=== PATIENT | male | born 1945 | race Caucasian/White ===

== ENCOUNTER → 2016-09-11 | Outpatient (CLI) | payer OTHER, MEDICARE ==
--- NOTE | 2016-09-11 10:21 | CR ---
EXAMINATION: Left and right knees HISTORY: Artificial joint COMPARISON: 31/10/2015 TECHNIQUE: 3 views bilaterally FINDINGS: Bilateral total knee hardware are demonstrated in good position and alignment. There is no fracture or acute osseous abnormality. Bone mineralization appears normal. Postoperative soft tissu e changes are present. Small joint effusions are not excluded bilaterally. No evidence of loosening. IMPRESSION: Stable bilateral total knee hardware.
== END ==
LOC: MW.CHORTHO 06:58
PROVIDERS: ATTEND Orthopaedic Surgery
DX: Z96.652 Presence of left artificial knee joint (principal); Z96.651 Presence of right artificial knee joint
CPT/HCPCS: 73562-26-LT; 73562-26-RT; 73562-LT; 73562-RT

== ENCOUNTER 2017-06-14 09:46 | Day surgery (SDC) | payer OTHER, MEDICARE ==
[~2017-06-14 09:46] MED LIST: Lactated Ringers 1,000 ML IV SCH; Lidocaine 2% 5 ML SDV ONE; Propofol 200 MG/20 ML SDV ONE
--- NOTE | 2017-06-14 11:07 | PCM.PREANE ---
Preanesthetic Assessment - Anesthesia/Transfusion/Family Hx Anesthesia History: Prior Anesthesia Without Reaction Other Type of Anesthesia Reaction Comment: Denies any known problem in the past Transfusion History: No Prior Transfusion(s) - Review of Systems General: No Symptoms Pulmonary: No Symptoms Cardiovascular: No Symptoms Gastrointestinal: No Symptoms Neurological: No Symptoms Other: Reports: None - Physical Assessment NPO Status Date: 06/13/17 NPO Status Time: 21:00 O2 Sat by Pulse Oximetry: 95 Respiratory Rate: 14 Vital Signs: Last Vital Signs Temp 98.1 F 06/14/17 09:50 Pulse 66 06/14/17 09:50 Resp 14 06/14/17 09:50 BP 123/76 06/14/17 09:50 Pulse Ox 95 06/14/17 09:50 Height: 6 ft 5 in Weight: 118.388 kg ASA Class: 3 Mental Status: Alert & Oriented x3 Airway Class: Mallampati = 2 Dentition: Reports: Missing Tooth/Teeth Thyro-Mental Finger Breadths: 3 Mouth Opening Finger Breadths: 3 ROM/Head Extension: Limited/Partial Lungs: Clear to Auscultation, Normal Respiratory Effort Cardiovascular: Regular Rate, Regular Rhythm - Allergies Allergies/Adverse Reactions: Allergies Allergy/AdvReac Type Severity Reaction Status Date / Time No Known Allergies Allergy Verified 05/22/16 10:28 - Anesthesia Plan Free Text/Narrative:: Pt states in 2011 he came in with chest pain, and ended up having a stent placed. Denies any further chest pain of SOA since that time. Pt is also very LOWER [place]. - Acknowledgements Anesthesia Type Planned: MAC Pt an Appropriate Candidate for the Planned Anesthesia: Yes Alternatives and Risks of Anesthesia Discussed w Pt/Guardian: Yes Pt/Guardian Understands and Agrees with Anesthesia Plan: Yes PreAnesthesia Questionnaire HEENT History: Reports: Hard of Hearing Other HEENT History: hearing aids, wears glasses Cardiovascular History: Reports: CAD, High Cholesterol, Hypertension Other Cardiovascular History: Heart Stent placed 10/2011, [place], Varicose Vein Stripping Left Respiratory History: Reports: Sleep Apnea Other Respiratory History: not always uses CPAP Gastrointestinal History: Reports: GERD, Other (See Below) Other Gastrointestinal History: Allen's Esophagus Genitourinary History: Reports: None Musculoskeletal History: Reports: Fracture, Osteoarthritis Other Musculoskeletal History: Arthritis in knees and wrist Neurological History: Reports: None Psychiatric History: Reports: Anxiety, Depression Endocrine/Metabolic History: Reports: None Hematologic History: Reports: Iron Deficiency Immunologic History: Reports: None Oncologic (Cancer) History: Reports: None Dermatologic History: Reports: None - Infectious Disease History Infectious Disease History: Reports: Chicken Pox, Measles, Mumps Other Infectious Disease History: childhood - Past Surgical History Head Surgeries/Procedures: Reports: None HEENT Surgical History: Reports: None Cardiovascular Surgical History: Reports: Coronary Artery Stent, Varicose Other Cardiovascular Surgeries/Procedures: left varicose vein stripping , angioplasty with 1 stent placed; Respiratory Surgical History: Reports: None GI Surgical History: Reports: Colonoscopy, EGD Other GI Surgeries/Procedures: has yearly EGD to check Esophagus Male Surgical History: Reports: None Endocrine Surgical History: Reports: None Neurological Surgical History: Reports: None Musculoskeletal Surgical History: Reports: Knee Replacement Other Musculoskeletal Surgeries/Procedures:: hx brigitte knee replacements, retained hardware removed from left knee Oncologic Surgical History: Reports: None Dermatological Surgical History: Reports: None - SUBSTANCE USE Smoking Status *Q: Former Smoker Tobacco Use Within Last Twelve Months:  Other Tobacco Use Within Last Twelve Months: Quit smoking age 25 or 26 Second Hand Smoke Exposure: No Days Per Week of Alcohol Use: 0 Number of Drinks Per Day: 0 Total Drinks Per Week: 0 Recreational Drug Use History: No - HOME MEDS Home Medications: Home Meds Clopidogrel Bisulfate [Clopidogrel] 75 mg PO DAILY 05/04/14 [History] Fish Oil/DHA/EPA [Fish Oil 1,200 MG] 2 cap PO DAILY 05/04/14 [History] Hydrochlorothiazide 25 mg PO DAILY 05/04/14 [History] Lisinopril 10 mg PO DAILY 05/04/14 [History] Metoclopramide [Reglan] 10 mg PO BEDTIME 05/04/14 [History] Multivitamin [Multi-Vitamin Daily] 1 tab PO DAILY 05/04/14 [History] Pantoprazole Sodium 40 mg PO DAILY 05/04/14 [History] Venlafaxine HCl [Venlafaxine ER] 150 mg PO DAILY 05/04/14 [History] Rosuvastatin [Crestor] 20 mg PO BEDTIME 05/24/14 [History] Metoprolol Tartrate [Lopressor] 12.5 mg PO BID 07/04/15 [History] - CURRENT (IN HOUSE) MEDS Current Meds: Current Medications Lactated Ringer's (Ringers, Lactated) 1,000 mls @ 125 mls/hr IV ASDIRECTED GENARO Last Admin: 06/14/17 10:24 Dose: 125 mls/hr Discontinued Medications Lidocaine (Xylocaine-Mpf 2%) Confirm Administered Dose 5 ml .ROUTE .STK-MED ONE Stop: 06/14/17 07:33 Propofol (Diprivan 20 Ml) Confirm Administered Dose 400 mg .ROUTE .STK-MED ONE Stop: 06/14/17 07:33
[2017-06-14] MEDS ORDERED: cefOXitin 1 GM Vial ONE (11:40)
[2017-06-14] MEDS ORDERED: Sodium Chloride 0.9% 20 ML ONE (11:40)
--- NOTE | 2017-06-14 12:11 | PCM.OPNOTE ---
- General Post-Op/Procedure Note Date of Surgery/Procedure: 06/14/17 Operative Procedure(s): Esophagogastroduodenoscopy with biopsy Pre Op Diagnosis: History of Allen's esophagus Post-Op Diagnosis: Gastritis. Gastric polyp. Mild esophagitis. Anesthesia Technique: MAC (ASA III) Primary Surgeon: Maik Murrieta Supervising Fire Marshal: Noman Rosario Condition: Good Free Text/Narrative:: CPT CODE 92447
[2017-06-14] MEDS ORDERED: Lactated Ringers 1,000 ML IV SCH (12:15)
--- NOTE | 2017-06-14 12:32 | PCM.POSTAN ---
POST ANESTHESIA ASSESSMENT - MENTAL STATUS Mental Status: Alert, Oriented - RESPIRATORY Respiratory Status: Respiratory Rate WNL, Airway Patent, O2 Saturation Stable - CARDIOVASCULAR CV Status: Pulse Rate WNL, Blood Pressure Stable - GASTROINTESTINAL GI Status: No Symptoms - POST OP HYDRATION Hydration Status: Adequate & Stable
[2017-06-14 12:58] VITALS: BP 120/67
--- NOTE | 2017-06-14 19:37 | OR ---
SURGEON: Maik Murrieta M.D. DATE OF PROCEDURE: 06/14/2017 OPERATIONS PERFORMED: Esophagogastroduodenoscopy with biopsy of gastric antrum and distal esophagus and gastric polypectomy. ANESTHESIA: MAC. ASA CLASSIFICATION: 3. PREOPERATIVE DIAGNOSIS: Personal history of Allen's esophagus. POSTOPERATIVE DIAGNOSES: 1. Gastritis. 2. Mild esophagitis, no obvious acute Allen's. 3. Gastric polyp. DESCRIPTION OF PROCEDURE: The patient was taken to the endoscopy room and positioned on the endoscopy table in the supine position. Time-out was called for appropriate identification of patient and procedure. Monitored anesthesia care was provided. The bite block was placed between the patient's teeth. The gastroscope was inserted through the bite block and advanced without difficulty through the esophagus and stomach into the duodenum where examination was carried out in a retrograde fashion. The duodenum shows no acute inflammatory changes. The gastroscope was withdrawn into the stomach which does show a mild- to-moderate gastritis. Antral biopsies were obtained to look for the presence of Helicobacter pylori. The gastroscope was then retroflexed to visualize the proximal stomach. The patient does have some gastric polyps. Biopsy of one of the gastric polyps was also obtained. The scope was then further withdrawn to the esophagus, which does show some mild inflammatory changes. Biopsies of the distal esophagus were obtained to look for the presence of Allen's esophagus. The mid and proximal esophagus show healthy-appearing mucosa with no erosions or ulcerations. The vocal cords were not visualized as the scope was withdrawn. The gastroscope was then removed with the patient having tolerated the procedure well. He was taken to recovery room in stable condition. RAGHAV / BERKLEY /[id number]
== END 2017-06-14 12:40 | disposition home or self-care (01) ==
LOC: MW.SDS 09:46
PROVIDERS: ATTEND Surgery
DX: K21.0 Gastro-esophageal reflux disease with esophagitis (principal); K29.50 Unspecified chronic gastritis without bleeding; K31.7 Polyp of stomach and duodenum; I25.10 Atherosclerotic heart disease of native coronary artery without angina pectoris; F32.9 Major depressive disorder, single episode, unspecified; M10.9 Gout, unspecified; I10 Essential (primary) hypertension; E78.00 Pure hypercholesterolemia, unspecified; D50.9 Iron deficiency anemia, unspecified; B35.4 Tinea corporis; G47.30 Sleep apnea, unspecified; F41.9 Anxiety disorder, unspecified; Z96.653 Presence of artificial knee joint, bilateral; Z79.02 Long term (current) use of antithrombotics/antiplatelets; Z79.899 Other long term (current) drug therapy; Z87.891 Personal history of nicotine dependence; Z95.5 Presence of coronary angioplasty implant and graft; Z86.718 Personal history of other venous thrombosis and embolism
CPT/HCPCS: 43239; 88305; 88312; 93005; J0694; J7120; 00731; J2704

== ENCOUNTER 2018-07-30 14:04 | Emergency (ER) | payer MEDICARE, OTHER ==
[2018-07-30] MEDS ORDERED: Sodium Chloride 0.9% 10 ML Syringe FLUSH PRN (14:10)
[2018-07-30] MEDS ORDERED: Sodium Chloride 0.9% 2.5 ML Syringe FLUSH PRN (14:10)
--- NOTE | 2018-07-30 14:11 | EDM.PDOC ---
ED HPI GENERAL MEDICAL PROBLEM - General Chief Complaint: Cardiovascular Problem Stated Complaint: HEART ISSUES Time Seen by Provider: 07/30/18 14:10 Source of Information: Reports: Patient History Limitations: Reports: No Limitations - History of Present Illness INITIAL COMMENTS - FREE TEXT/NARRATIVE: HISTORY AND PHYSICAL: History of present illness: Patient is-year-old male here with complaint of concern about coronary artery blockage. He states he has been feeling similar to when he was feeling before he had a stent placed in his LAD in 2011 but states he never had an MN. He states for the past week he has been having reflex and a tight feeling across the top of his abdomen. He states he occasionally gets pain the radiates to either side of the chest. He reports it is worse with activity and he does have associated shortness or breath. Denies nausea, vomiting, diaphoresis, cough, headache. He does have history of GERD and takes protonix daily. He does not currently have any pain and has not had pain today. [facility] to have [facility] done. Review of systems: As per history of present illness and below otherwise all systems reviewed and negative. Past medical history: As per history of present illness and as reviewed below otherwise noncontributory. Surgical history: As per history of present illness and as reviewed below otherwise noncontributory. Social history: No reported history of drug or alcohol abuse. Family history: As per history of present illness and as reviewed below otherwise noncontributory. Physical exam: General: Patient sitting comfortably in no acute distress and nontoxic appearing HEENT: Atraumatic, normocephalic, pupils reactive, negative for conjunctival pallor or scleral icterus, mucous membranes moist, throat clear, neck supple, nontender, trachea midline. No meningeal signs. Lungs: Clear to auscultation, breath sounds equal bilaterally, chest nontender. Heart: S1S2, regular, negative for clicks, rubs, or overt murmur. Abdomen: Soft, nondistended, nontender. Negative for masses or hepatosplenomegaly. Negative for costovertebral tenderness. No rigidity, rebound , guarding. Pelvis: Stable nontender. Genitourinary: Deferred. Rectal: Deferred. Extremities: Atraumatic, negative for cords or calf pain. Neurovascular unremarkable. Neuro: Awake, alert, oriented. Cranial nerves II through XII unremarkable. Cerebellum unremarkable. Motor and sensory unremarkable throughout. Exam nonfocal. Notes: Patient was offered admission which he declined at this time and understands the risks of this. Diagnostics: EKG, CXR, CBC, CMP, troponin Therapeutics: None Prescriptions: None Impression: Chest pain, GERD Plan: 1. Follow up with your primary care provider 2. Return to ED as needed as discussed Definitive disposition and diagnosis as appropriate pending reevaluation and review of above. - Related Data Allergies Allergy/AdvReac Type Severity Reaction Status Date / Time No Known Allergies Allergy Verified 07/30/18 14:15 Home Meds: Home Meds Clopidogrel Bisulfate [Clopidogrel] 75 mg PO DAILY 05/04/14 [History] Fish Oil/DHA/EPA [Fish Oil 1,200 MG] 2 cap PO DAILY 05/04/14 [History] Hydrochlorothiazide 25 mg PO DAILY 05/04/14 [History] Lisinopril 10 mg PO DAILY 05/04/14 [History] Metoclopramide [Reglan] 10 mg PO BEDTIME 05/04/14 [History] Multivitamin [Multi-Vitamin Daily] 1 tab PO DAILY 05/04/14 [History] Pantoprazole Sodium 40 mg PO DAILY 05/04/14 [History] Venlafaxine HCl [Venlafaxine ER] 150 mg PO DAILY 05/04/14 [History] Rosuvastatin [Crestor] 20 mg PO BEDTIME 05/24/14 [History] Metoprolol Tartrate [Lopressor] 12.5 mg PO BID 07/04/15 [History] Past Medical History HEENT History: Reports: Hard of Hearing Other HEENT History: hearing aids, wears glasses Cardiovascular History: Reports: CAD, High Cholesterol, Hypertension Other Cardiovascular History: Heart Stent placed 10/2011, [place], Varicose Vein Stripping Left Respiratory History: Reports: Sleep Apnea Other Respiratory History: not always uses CPAP Gastrointestinal History: Reports: GERD, Other (See Below) Other Gastrointestinal History: Allen's Esophagus Genitourinary History: Reports: None Musculoskeletal History: Reports: Fracture, Osteoarthritis Other Musculoskeletal History: Arthritis in knees and wrist Neurological History: Reports: None Psychiatric History: Reports: Anxiety, Depression Endocrine/Metabolic History: Reports: None Hematologic History: Reports: Iron Deficiency Immunologic History: Reports: None Oncologic (Cancer) History: Reports: None Dermatologic History: Reports: None - Infectious Disease History Infectious Disease History: Reports: Chicken Pox, Measles, Mumps Other Infectious Disease History: childhood - Past Surgical History Head Surgeries/Procedures: Reports: None HEENT Surgical History: Reports: None Cardiovascular Surgical History: Reports: Coronary Artery Stent, Varicose Other Cardiovascular Surgeries/Procedures: left varicose vein stripping , angioplasty with 1 stent placed; Respiratory Surgical History: Reports: None GI Surgical History: Reports: Colonoscopy, EGD Other GI Surgeries/Procedures: has yearly EGD to check Esophagus Male Surgical History: Reports: None Endocrine Surgical History: Reports: None Neurological Surgical History: Reports: None Musculoskeletal Surgical History: Reports: Knee Replacement Other Musculoskeletal Surgeries/Procedures:: hx brigitte knee replacements, retained hardware removed from left knee Oncologic Surgical History: Reports: None Dermatological Surgical History: Reports: None Social & Family History - Family History Cardiac: Reports: Other (See Below) Other Cardiac Family History: unknown condition Respiratory: Reports: TB Neurological: Reports: CVA Endocrine/Metabolic: Reports: Obesity/MBI 30+ Oncologic: Reports: Brain ED ROS GENERAL - Review of Systems Review Of Systems: ROS reveals no pertinent complaints other than HPI. ED EXAM, GENERAL - Physical Exam Exam: See Below (see dictation) Course - Vital Signs Last Recorded V/S: Last Vital Signs Temp 97.8 F 07/30/18 14:16 Pulse 77 07/30/18 14:16 Resp 17 07/30/18 14:16 BP 112/75 07/30/18 14:16 Pulse Ox 97 07/30/18 14:16 - Orders/Labs/Meds Orders: Active Orders 24 hr Category Date Time Status EKG Documentation Completion [RC] STAT Care 07/30/18 14:10 Active Sodium Chloride 0.9% [Saline Flush] Med 07/30/18 14:10 Active 10 ml FLUSH ASDIRECTED PRN Sodium Chloride 0.9% [Saline Flush] Med 07/30/18 14:10 Active 2.5 ml FLUSH ASDIRECTED PRN Saline Lock Insert [OM.PC] Stat Oth 07/30/18 14:10 Ordered Medication Orders Sodium Chloride (Saline Flush) 10 ml FLUSH ASDIRECTED PRN PRN Reason: Keep Vein Open Sodium Chloride (Saline Flush) 2.5 ml FLUSH ASDIRECTED PRN PRN Reason: Keep Vein Open Labs: Laboratory Tests 07/30/18 07/30/18 Range/Units 14:20 14:20 WBC 7.36 (4.0-11.0) K/uL RBC 4.73 (4.50-5.90) M/uL Hgb 15.1 (13.0-17.0) g/dL Hct 44.6 (38.0-50.0) % MCV 94.3 (80.0-98.0) fL MCH 31.9 (27.0-32.0) pg MCHC 33.9 (31.0-37.0) g/dL RDW Std Deviation 47.6 (28.0-62.0) fl RDW Coeff of [place] 14 (11.0-15.0) % Plt Count 229 (150-400) K/uL MPV 10.40 (7.40-12.00) fL Neut % (Auto) 60.4 (48.0-80.0) % Lymph % (Auto) 20.2 (16.0-40.0) % [place] % (Auto) 11.4 (0.0-15.0) % Eos % (Auto) 6.5 (0.0-7.0) % Baso % (Auto) 1.5 (0.0-1.5) % Neut # (Auto) 4.4 (1.4-5.7) K/uL Lymph # (Auto) 1.5 (0.6-2.4) K/uL [place] # (Auto) 0.8 (0.0-0.8) K/uL Eos # (Auto) 0.5 (0.0-0.7) K/uL Baso # (Auto) 0.1 (0.0-0.1) K/uL Nucleated RBC % 0.0 /100WBC Nucleated RBCs # 0 K/uL Sodium 135 L (136-148) mmol/L Potassium 3.9 (3.5-5.1) mmol/L Chloride 101 (98-107) mmol/L Carbon Dioxide 26.1 (21.0-32.0) mmol/L BUN 28 H (7.0-18.0) mg/dL Creatinine 1.3 (0.8-1.3) mg/dL Est Cr Clr Drug Dosing 63.06 mL/min Estimated GFR (MDRD) 54.3 ml/min Glucose 100 (74-106) mg/dL Calcium 9.2 (8.5-10.1) mg/dL Total Bilirubin 0.4 (0.2-1.0) mg/dL AST 16 (15-37) IU/L ALT 30 (14-63) IU/L Alkaline Phosphatase 104 (46-116) U/L Troponin I < 0.050 (0.000-0.056) ng/mL Total Protein 7.5 (6.4-8.2) g/dL Albumin 3.7 (3.4-5.0) g/dL Globulin 3.8 (2.6-4.0) g/dL Albumin/Globulin Ratio 1.0 (0.9-1.6) Meds: Medications Generic Name Dose Route Start Last Admin Trade Name Freq PRN Reason Stop Dose Admin Sodium Chloride 10 ml 07/30/18 14:10 Saline Flush FLUSH ASDIRECTED PRN Keep Vein Open Sodium Chloride 2.5 ml 07/30/18 14:10 Saline Flush FLUSH ASDIRECTED PRN Keep Vein Open Departure - Departure Time of Disposition: 15:29 Disposition: Home, Self-Care 01 Condition: Good Clinical Impression: Chest pain, GERD (gastroesophageal reflux disease) Forms: ED Department Discharge Additional Instructions: The following information is given to patients seen in the emergency department who are being discharged to home. This information is to outline your options for follow-up care. We provide all patients seen in our emergency department with a follow-up referral. The need for follow-up, as well as the timing and circumstances, are variable depending upon the specifics of your emergency department visit. If you don't have a primary care physician on staff, we will provide you with a referral. We always advise you to contact your personal physician following an emergency department visit to inform them of the circumstance of the visit and for follow-up with them and/or the need for any referrals to a consulting specialist. The emergency department will also refer you to a specialist when appropriate. This referral assures that you have the opportunity for follow-up care with a specialist. All of these measure are taken in an effort to provide you with optimal care, which includes your follow-up. Under all circumstances we always encourage you to contact your private physician who remains a resource for coordinating your care. When calling for follow-up care, please make the office aware that this follow-up is from your recent emergency room visit. If for any reason you are refused follow-up, please contact the [facility] Department at and asked to speak to the emergency department charge nurse. [facility] [address] [place] [address] [address] 1. Follow up with your primary care provider 2. Return to ED as needed as discussed - My Orders Last 24 Hours: My Active Orders 07/30/18 14:10 EKG Documentation Completion [RC] STAT Sodium Chloride 0.9% [Saline Flush] 10 ml FLUSH ASDIRECTED PRN Sodium Chloride 0.9% [Saline Flush] 2.5 ml FLUSH ASDIRECTED PRN Saline Lock Insert [OM.PC] Stat - Assessment/Plan Last 24 Hours: My Active Orders 07/30/18 14:10 EKG Documentation Completion [RC] STAT Sodium Chloride 0.9% [Saline Flush] 10 ml FLUSH ASDIRECTED PRN Sodium Chloride 0.9% [Saline Flush] 2.5 ml FLUSH ASDIRECTED PRN Saline Lock Insert [OM.PC] Stat
[2018-07-30 14:54] LABS: CHLORIDE,CL 101 mmol/L (98-107); SODIUM,NA 135 mmol/L (136-148)
--- NOTE | 2018-07-30 15:10 | CR ---
EXAMINATION: Portable chest radiograph. HISTORY: Chest pain. FINDINGS: The trachea is midline. The cardiomediastinal silhouette is within normal limits. No pulmonary infiltrates, effusions or pneumothorax. Mild left basilar atelectasis. Small to moderate hiatal hernia. Osseous structures appear unremarkable. IMPRESSION: No acute cardiopulmonary process.
[2018-07-30 15:46] VITALS: BP 100/70
== END 2018-07-30 15:40 | disposition home or self-care (01) ==
LOC: MW.ED 14:04
DX: K21.9 Gastro-esophageal reflux disease without esophagitis (principal); R07.9 Chest pain, unspecified; E78.00 Pure hypercholesterolemia, unspecified; I10 Essential (primary) hypertension; Z79.899 Other long term (current) drug therapy; Z79.01 Long term (current) use of anticoagulants
CPT/HCPCS: 36415; 71045; 71045-26; 80053; 84484; 85025; 93005; 99284; 99285-25

== ENCOUNTER 2019-03-07 10:46 | Emergency (ER) | payer OTHER, MEDICARE ==
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
--- NOTE | 2019-03-07 11:50 | CR ---
HISTORY: Pain. TECHNIQUE: One view of the pelvis. COMPARISON: No prior. FINDINGS: There is no acute fracture. No hip joint space narrowing. Degenerative disc disease within the lower lumbar spine and at the lumbosacral junction. Pelvic calcifications may represent phleboliths. IMPRESSION: 1. No fracture. 2. No hip joint space narrowing. 3. Degenerative disc disease. Dictated by Saman Izaguirre MD @ 03/07/2019 11:47:59 AM Dictated by: Saman Izaguirre MD @ 03/07/2019 11:48:04 (Electronically Signed)
--- NOTE | 2019-03-07 11:52 | CR ---
INDICATION: Pain, shortness of breath. COMPARISON: Two view chest dated 11/20/2018 TECHNIQUE: Portable AP erect chest performed at 11:01 a.m. FINDINGS: There is stable linear scarring within the left lung base. Lungs are otherwise clear. The heart, mediastinum and pulmonary vessels are of normal size. There is stable apical pleural scarring. There is no evidence of pleural fluid. IMPRESSION: No acute cardiopulmonary disease process identified. Dictated by Thomas Souza MD @ Mar 07 2019 11:49AM Signed by Dr. Thomas Souza @ Mar 07 2019 11:51AM
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
[2019-03-07 11:55] LABS: POTASSIUM,K 4.1 mmol/L (3.5-5.1)
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
[2019-03-07 12:58] VITALS: BP 98/66; PULSE 66
== END 2019-03-07 12:22 | disposition home or self-care (01) ==
LOC: MW.ED 10:46
DX: S19.9XXA Unspecified injury of neck, initial encounter (principal); H91.93 Unspecified hearing loss, bilateral; I25.10 Atherosclerotic heart disease of native coronary artery without angina pectoris; E78.00 Pure hypercholesterolemia, unspecified; I10 Essential (primary) hypertension; K21.9 Gastro-esophageal reflux disease without esophagitis; F41.9 Anxiety disorder, unspecified; F32.9 Major depressive disorder, single episode, unspecified; Z88.5 Allergy status to narcotic agent; Z95.5 Presence of coronary angioplasty implant and graft; Z79.899 Other long term (current) drug therapy; Z79.02 Long term (current) use of antithrombotics/antiplatelets; V43.53XA Car driver injured in collision with pick-up truck in traffic accident, initial encounter; Y92.410 Unspecified street and highway as the place of occurrence of the external cause
CPT/HCPCS: 36415; 70450; 70450-26; 71045; 71045-26; 72125; 72125-26; 72170; 72170-26; 80053; 81003; 83690; 85025; 85610; 99284-25

== ENCOUNTER 2020-01-08 06:45 | Day surgery (SDC) | payer OTHER, MEDICARE ==
[~2020-01-08 06:45] MED LIST changes: -Lidocaine 2% 5 ML SDV ONE; -Propofol 200 MG/20 ML SDV ONE; +cefOXitin 2 GM in Premix Bag 1 BAG IV ONE
[2020-01-08] MEDS ORDERED: Propofol 200 MG/20 ML SDV ONE (07:21)
--- NOTE | 2020-01-08 07:22 | PCM.PREANE ---
Preanesthetic Assessment - Anesthesia/Transfusion/Family Hx Anesthesia History: Prior Anesthesia Without Reaction Other Type of Anesthesia Reaction Comment: Denies any known problem in the past Family History of Anesthesia Reaction: No Transfusion History: No Prior Transfusion(s) - Review of Systems General: No Symptoms Pulmonary: No Symptoms Cardiovascular: No Symptoms Gastrointestinal: No Symptoms Neurological: No Symptoms Other: Reports: None - Physical Assessment NPO Status Date: 01/07/20 Vital Signs: Last Vital Signs Temp 97.2 F 01/08/20 06:50 Pulse 66 01/08/20 06:50 Resp 16 01/08/20 06:50 BP 132/81 01/08/20 06:50 Pulse Ox 96 01/08/20 06:50 Height: 6 ft 3 in Weight: 113.398 kg ASA Class: 3 Mental Status: Alert & Oriented x3 Airway Class: Mallampati = 2 Dentition: Reports: Normal Dentition ROM/Head Extension: Full Lungs: Clear to Auscultation, Normal Respiratory Effort Cardiovascular: Regular Rate, Regular Rhythm - Allergies Allergies/Adverse Reactions: Allergies Allergy/AdvReac Type Severity Reaction Status Date / Time hydrocodone Allergy Irritabilit Verified 01/04/20 13:22 y - Blood Blood Available: No - Anesthesia Plan Pre-Op Medication Ordered: None - Acknowledgements Anesthesia Type Planned: General Anesthesia (tiva) Pt an Appropriate Candidate for the Planned Anesthesia: Yes Alternatives and Risks of Anesthesia Discussed w Pt/Guardian: Yes Pt/Guardian Understands and Agrees with Anesthesia Plan: Yes Additional Comments: PMH: Barrettestuardo, cad s/p coronary stent in 2011, off plavix x 6 days, gerd, htn, has osteoarthritis of hands PLAN: tiva PreAnesthesia Questionnaire HEENT History: Reports: Hard of Hearing Other HEENT History: hearing aids, wears glasses Cardiovascular History: Reports: CAD, High Cholesterol, Hypertension Other Cardiovascular History: Heart Stent placed 10/2011, [place], Varicose Vein Stripping Left Respiratory History: Reports: Sleep Apnea Other Respiratory History: dose not use CPAP Gastrointestinal History: Reports: Gastritis, GERD, Other (See Below) Other Gastrointestinal History: Allen's Esophagus Genitourinary History: Reports: None Musculoskeletal History: Reports: Fracture, Osteoarthritis Other Musculoskeletal History: hx fx leg, Arthritis in knees and wrist Neurological History: Reports: None Psychiatric History: Reports: Anxiety, Depression Endocrine/Metabolic History: Reports: Obesity/BMI 30+ Hematologic History: Reports: Anticoagulation Therapy, Iron Deficiency Immunologic History: Reports: None Oncologic (Cancer) History: Reports: None Dermatologic History: Reports: None - Infectious Disease History Infectious Disease History: Reports: Chicken Pox, Measles, Mumps Other Infectious Disease History: childhood - Past Surgical History Head Surgeries/Procedures: Reports: None HEENT Surgical History: Reports: None Cardiovascular Surgical History: Reports: Coronary Artery Stent, Varicose Other Cardiovascular Surgeries/Procedures: left varicose vein stripping , angioplasty with 1 stent placed; Respiratory Surgical History: Reports: None GI Surgical History: Reports: Colonoscopy, EGD Male Surgical History: Reports: None Endocrine Surgical History: Reports: None Neurological Surgical History: Reports: None Musculoskeletal Surgical History: Reports: Knee Replacement Other Musculoskeletal Surgeries/Procedures:: hx brigitte knee replacements, retained hardware removed from left knee Oncologic Surgical History: Reports: None Dermatological Surgical History: Reports: None - SUBSTANCE USE Smoking Status *Q: Former Smoker Tobacco Use Within Last Twelve Months: No - HOME MEDS Home Medications: Home Meds Clopidogrel Bisulfate [Clopidogrel] 75 mg PO DAILY 05/04/14 [History] Fish Oil/DHA/EPA [Fish Oil 1,200 MG] 2 cap PO DAILY 05/04/14 [History] Hydrochlorothiazide 25 mg PO DAILY 05/04/14 [History] Lisinopril 10 mg PO DAILY 05/04/14 [History] Multivitamin [Multi-Vitamin Daily] 1 tab PO DAILY 05/04/14 [History] Venlafaxine HCl [Venlafaxine ER] 150 mg PO DAILY 05/04/14 [History] Rosuvastatin [Crestor] 20 mg PO BEDTIME 05/24/14 [History] Metoprolol Tartrate [Lopressor] 12.5 mg PO BID 07/04/15 [History] Dexlansoprazole [Dexilant] 60 mg PO BID 01/04/20 [History] Acetaminophen [Tylenol Arthritis] 2 tab PO ASDIRECTED PRN 01/05/20 [History] - CURRENT (IN HOUSE) MEDS Current Meds: Current Medications Lactated Ringer's (Ringers, Lactated) 1,000 mls @ 125 mls/hr IV ASDIRECTED GENARO Last Admin: 01/08/20 07:00 Dose: 125 mls/hr Documented by: Discontinued Medications Cefoxitin Sodium 2 gm/ Premix 50 mls @ 100 mls/hr IV ONETIME ONE Stop: 01/08/20 06:29
[2020-01-08] MEDS ORDERED: Water For Injection, Sterile 20 ML ONE (08:09)
[2020-01-08] MEDS ORDERED: cefOXitin 1 GM Vial ONE (08:09)
--- NOTE | 2020-01-08 08:23 | PCM.OPNOTE ---
- General Post-Op/Procedure Note Date of Surgery/Procedure: 01/08/20 Operative Procedure(s): Esophagogastroduodenoscopy with antral and esophageal biopsies. Esophageal biopsies at 40, 37,34, 30 & 23 cms from the incisors. Pre Op Diagnosis: Chronic gastroesophageal reflux disease with history of B arrett's changes. Post-Op Diagnosis: Same Anesthesia Technique: MAC (ASA III) Primary Surgeon: Maik Murrieta Condition: Good Free Text/Narrative:: DICTATION [id number] CPT CODE [id number]
[2020-01-08] MEDS ORDERED: Lactated Ringers 1,000 ML IV SCH (08:30)
--- NOTE | 2020-01-08 08:31 | PCM.POSTAN ---
POST ANESTHESIA ASSESSMENT - MENTAL STATUS Mental Status: Alert, Oriented - VITAL SIGNS Vital Signs: Last Vital Signs Temp 36.3 C 01/08/20 08:13 Pulse 62 01/08/20 08:20 Resp 11 L 01/08/20 08:20 BP 114/74 01/08/20 08:20 Pulse Ox 96 01/08/20 08:20 - RESPIRATORY Respiratory Status: Respiratory Rate WNL, Airway Patent, O2 Saturation Stable - CARDIOVASCULAR CV Status: Pulse Rate WNL, Blood Pressure Stable - GASTROINTESTINAL GI Status: No Symptoms - PAIN Pain Score: 0 - POST OP HYDRATION Hydration Status: Adequate & Stable
--- NOTE | 2020-01-08 08:31 | PCM48HPAN ---
Post Anesthesia Note - EVALUATION WITHIN 48HRS OF ANESTHETIC Vital Signs in Normal Range: Yes Patient Participated in Evaluation: Yes Respiratory Function Stable: Yes Airway Patent: Yes Cardiovascular Function Stable: Yes Hydration Status Stable: Yes Pain Control Satisfactory: Yes Nausea and Vomiting Control Satisfactory: Yes Mental Status Recovered: Yes Vital Signs: Last Vital Signs Temp 36.3 C 01/08/20 08:13 Pulse 62 01/08/20 08:20 Resp 11 L 01/08/20 08:20 BP 114/74 01/08/20 08:20 Pulse Ox 96 01/08/20 08:20
[2020-01-08 08:49] VITALS: BP 129/74; PULSE 59
--- NOTE | 2020-01-08 09:38 | OR ---
SURGEON: Maik Murrieta M.D. DATE OF PROCEDURE: 01/08/2020 OPERATION PERFORMED: Esophagogastroduodenoscopy with gastric and multiple esophageal biopsies. Esophageal biopsies were taken at 40, 37, 34, 30, and 23 cm from the incisors. PREOPERATIVE DIAGNOSIS: Chronic gastroesophageal reflux disease with Allen changes. POSTOPERATIVE DIAGNOSES: 1. Chronic gastroesophageal reflux disease with Allen changes. 2. ASA classification 3. DESCRIPTION OF PROCEDURE: The patient was taken to the endoscopy room and positioned on the endoscopy table in the supine position. Time-out was called for appropriate identification of the patient and procedure. Monitored anesthesia care was provided. The bite block was placed between the patient's teeth. The gastroscope was inserted through the bite block into the oropharynx and advanced without difficulty through the esophagus and stomach into the duodenum where examination was now carried out in a retrograde fashion. The duodenum shows no acute inflammatory changes or ulcerations. The gastric antrum does show mild-to- moderate gastritis and antral biopsies were obtained to look for the presence of Helicobacter pylori. The gastroscope was then retroflexed to visualize the proximal stomach. I did not see any acute proximal gastritis or polyps. The gastroscope was then straightened and slowly withdrawn. The GE junction does appear to be at approximately 40 cm from the incisors. Multiple biopsies were obtained with the aid of narrow band imaging. Biopsies were taken separately at 40 cm, 37 cm, 34 cm, 30 cm, and 23 cm from the incisors. Each specimen was sent separately. With narrow band imaging in place, one can see the transition point, which is at approximately 23 cm. Separate photos of this area were obtained using both white light imaging and narrow band imaging. Separate biopsies of that area were taken at the transition point. The gastroscope was then further withdrawn. The proximal esophagus shows healthy-appearing squamous- type epithelium. The vocal cords were briefly visualized as the scope was withdrawn and noted to move symmetrically. The gastroscope was then removed with the patient having tolerated the procedure well. He was taken to recovery room in stable condition. RAGHAV / BERKLEY /[id number]
== END 2020-01-08 09:00 | disposition home or self-care (01) ==
LOC: MW.SDS 06:45
PROVIDERS: ATTEND Surgery
DX: K29.70 Gastritis, unspecified, without bleeding (principal); K22.70 Barrett's esophagus without dysplasia; K31.89 Other diseases of stomach and duodenum; K21.0 Gastro-esophageal reflux disease with esophagitis; F32.9 Major depressive disorder, single episode, unspecified; I25.10 Atherosclerotic heart disease of native coronary artery without angina pectoris; I10 Essential (primary) hypertension; E78.00 Pure hypercholesterolemia, unspecified; M06.9 Rheumatoid arthritis, unspecified; Z79.899 Other long term (current) drug therapy; Z98.890 Other specified postprocedural states; Z87.891 Personal history of nicotine dependence; Z68.31 Body mass index [BMI] 31.0-31.9, adult; Z88.5 Allergy status to narcotic agent
CPT/HCPCS: 00731; 88305; 88312; J0694; J2001; J2704; J7120

== ENCOUNTER 2020-11-21 08:21 | Emergency (ER) | payer MEDICARE, OTHER ==
--- NOTE | 2020-11-21 08:54 | PCM.EKG ---
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
[2020-11-21 09:32] LABS: BLOOD UREA NITROGEN,BUN 17 mg/dL (7.0-18.0); CARBON DIOXIDE,CO2 20.7 mmol/L (21.0-32.0); CHLORIDE,CL 98 mmol/L (98-107); GLUCOSE RANDOM 104 mg/dL (74-106); POTASSIUM,K 3.1 mmol/L (3.5-5.1); SODIUM,NA 132 mmol/L (136-148)
[2020-11-21] MEDS ORDERED: Aspirin 81 MG Tab.Chew PO ONE (09:34)
[2020-11-21] MEDS ORDERED: Potassium Chloride Riders 40 MEQ in Premix Bag 1 BAG IV ONE (09:35)
[2020-11-21] MEDS ORDERED: Magnesium Sulfate/Water 2 GM in Premix Bag 1 BAG IV ONE (09:35)
[2020-11-21] MEDS ORDERED: Sodium Chloride 0.9% 1,000 ML IV STA (09:37)
--- NOTE | 2020-11-21 10:00 | CR ---
Indication: Shortness of breath Comparison: Single view chest March 07, 2019 Technique: Single AP view chest Findings: There is hyperinflation and chronic interstitial change. There are mildly increased interstitial markings likely representing mild pulmonary edema with basilar atelectasis versus scar. The cardiac silhouette is within normal limits. The bony thorax is grossly intact. Impression: Hyperinflation and chronic interstitial changes with mild pulmonary edema and basilar atelectasis versus scar. Dictated by Sadiq Banuelos MD @ 11/21/2020 9:58:[address] Sadiq Banuelos @ Nov 21 2020 9:58AM
--- NOTE | 2020-11-21 10:02 | CT ---
Indication: Confusion Technique: Volumetric multidetector CT images of the head were obtained without the administration of low osmolar intravenous contrast. Comparison: CT head May 22, 2019 Findings: There is no intra-axial or extra-axial fluid collection. There is no mass effect or midline shift. There is age-related cortical atrophy with mild sulcal widening and ex vacuo dilatation of the lateral ventricles. There are chronic small vessel disease changes in the subcortical and periventricular white matter without lost lara-white differentiation. The orbits and their contents are grossly within normal limits. The bony calvarium is grossly intact. The paranasal sinuses are clear. The mastoid air cells are well aerated. Impression: 1. Age-related changes of the brain without acute intracranial abnormality. Please note that all CT scans at this facility use dose modulation, iterative reconstruction, and/or weight-based dosing when appropriate to reduce radiation dose to as low as reasonably achievable. Dictated by Sadiq Banuelos MD @ 11/21/2020 10:01:[address] Sadiq Banuelos @ Nov 21 2020 10:01AM
[2020-11-21] MEDS ORDERED: Calcium Gluconate 10% 1 GM/10 ML SDV IVPUSH ONE (10:05)
[2020-11-21 10:26] VITALS: BP 109/63; PULSE 81
--- NOTE | 2020-11-21 10:26 | PCM.EKG ---
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
--- NOTE | 2020-11-21 10:49 | EDM.PDOC ---
ED HPI GENERAL MEDICAL PROBLEM - General Chief Complaint: Cardiovascular Problem Stated Complaint: POSSIBLE LOW BLOOD PRESSURE Time Seen by Provider: 11/21/20 08:43 - History of Present Illness INITIAL COMMENTS - FREE TEXT/NARRATIVE: CHIEF COMPLAINT(S): Dizziness and weakness HISTORY OF PRESENT ILLNESS: This is a 75-year-old man with a past medical history of metastatic lung cancer, CAD status post stent, hyperlipidemia, hype rtension, who recently underwent palliative radiation in approximately 1 week ago had palliative chemotherapy with Pembrolizumab who presents to the emergency department via EMS with a chief complaint of dizziness and weakness. Per EMS: Patient has experiencing dizziness without any other complaints. They state that he was hypotensive in route when his sugar was normal. Otherwise no other abnormality. The patient states that he is experiencing some dizziness for the last couple of days. He describes it as a spinning sensation like he is almost going to pass out. He states that this morning it got so bad that he was unable to stand because he was so weak. He denies any chest pain, shortness of breath, abdominal pain, nausea or vomiting. He denies any blurry vision, loss of vision, double vision. He denies any headache, neck stiffness. He denies any fevers or chills. He denies any exertional dyspnea or lower extremity edema. He denies any recent travel or surgery. Other than feeling dizzy and weak he denies any other symptoms. He denies any pain at all. Per the who is at bedside: The patient does experience evening altered mentation for which his doctor switched him to tramadol as they thought this was likely secondary to the pain medication as he does have left shoulder and pelvic pain secondary to metastasis. She denied any altered mentation this morning. She states that he had no other symptoms. REVIEW OF SYSTEMS: Constitutional: Denies fever, chills. Eyes: Denies eye pain Ears, Nose, Mouth, & Throat: Denies earache Cardiovascular: Positive for presyncopal symptoms. Denies chest pain Respiratory: Denies shortness of breath Gastrointestinal: Denies Nausea, vomiting, diarrhea, hematochezia. Genitourinary: Denies hematuria Skin:Denies a rash Neurological: Positive for overall weakness. Denies blurred vision, numbness,, tingling, trouble walking. Psychiatric: Denies depression PAST MEDICAL HISTORY: As per history of present illness and as reviewed below otherwise noncontributory. SURGICAL HISTORY: As per history of present illness and as reviewed below otherwise noncontributory. SOCIAL HISTORY: As per history of present illness and as reviewed below otherwise noncontributory. FAMILY HISTORY: As per history of present illness and as reviewed below otherwise noncontributory. EXAMINATION OF ORGAN SYSTEMS/BODY AREAS: VITALS: Blood pressure was 107/69, heart rate 80, respiratory rate 18 with an oxygen saturation 97% on room air. Temperature 36.6. GENERAL: The patient is well-nourished, well-developed, in no acute distress. HEAD: Normocephalic, atraumatic. EYES: EOMs intact. PERRL. No vertical or horizontal nystagmus. ENT. External ears WNL. Nares patent. Oropharynx is clear with no erythema or exudate. No uvular or tongue swelling. NECK: Supple, no masses. Trachea is midline. LUNGS: No tachypnea or intercostal retractions. Clear to auscultation bilaterally, no wheezing, no rales, no stridor, no rhonchi. CARDIOVASCULAR: Regular rate and rhythm with S1-S2. No murmur, rubs or gallops. No edema. No JVD. ABDOMEN: Soft, non-distended, non-tender. Bowel sounds present in all 4 quadrants. No rebound tenderness, guarding, or peritoneal signs. MUSCULOSKELETAL: No deformity. Patient is moving all 4 limbs spontaneously. NEUROLOGICAL: AOx4. CN grossly intact. Strength 5/5 in bilateral upper and lower extremity. Sensation is intact bilaterally in upper and lower extremity. Gait appears normal. SKIN: No rashes, or pallor. No signs of injury. MEDICAL DECISION MAKING AND COURSE IN THE ED WITH INTERPRETATION/REVIEW OF DIAGNOSTIC STUDIES: This is a 75-year-old man with a past medical history of metastatic lung cancer, CAD status post stent, hyperlipidemia, hypertension, who recently underwent palliative radiation in approximately 1 week ago had palliative chemotherapy with Pembrolizumab who presents to the emergency department via EMS with a chief complaint of dizziness and weakness Immediately upon entering the resuscitation room the patient was disrobed, placed on continuous cardiac monitoring, and IV access was established by nursing. Patient is able to speak thus displaying a patent airway, breath sounds are equal bilaterally, and patient has palpable pulses in all 4 extremities. At this time the patient's blood pressure is normal, monitor tech did reveal sinus rhythm and pulse oximetry with good waveform was 96 to 97% on room air. Differential at this time remains broad including ACS, dehydration, electrolyte abnormality, medication side effect. The patient currently denies any chest pain however we will obtain a cardiac work-up. EKG did reveal anterior Q waves which are unchanged from prior. No ST elevation or depression. We will provide the patient with 1 L of normal saline. We did place the patient on monitor tech and pulse oximetry. Laboratory: CBC reveals a normocytic anemia with a hemoglobin of 11, hematocrit of 32.5. Normal WBC count of 4.55. There is no neutropenia but there is evidence of hypokalemia at 3.1, metabolic acidosis with a bicarbonate of 20.7. Hypocalcemia at 7.2, corrected calcium 8.2. Transaminitis with an AST of 90 and ALT of 120 which is unchanged from prior, hypoalbuminemia at 2.6. Magnesium is low at 1.6. Troponin is elevated at 0.146. TSH is 1.81, free T4 is 1.34. The radiological images were viewed by myself along with reading the report from the radiologist. Chest x-ray reveals hyperinflation and chronic interstitial changes with mild pulmonary edema and basilar atelectasis versus scar. CT head without contrast does not reveal any acute intracranial abnormality. After elevated troponin had returned I did provide the patient with 324 mg of p.o. aspirin. I did obtain a repeat EKG at this time which did not reveal any acute signs of ischemia. It was unchanged from prior. The patient's vitals continue to remain normal and the patient denied any symptoms at all whatsoever. At this time I did replenish the patient's calcium with 1 g of calcium gluconate, replenish the patient's magnesium with 2 g of magnesium sulfate IV, and replenish the patient's potassium with 40 mEq of IV potassium chloride. I did discuss with patient and at bedside that I would like to speak to their oncologist regarding transfer and further recommendation. They were amenable to this plan. I contacted [facility] and spoke with Dr. Peck who stated that his chemotherapy can cause any type of inflammation in the body. At this time differential is broad including adrenal insufficiency, hypo or hyperthyroidism, pericarditis, myocarditis. He states that the patient will likely need a cortisol test or ACTH stimulation test, and echocardiogram and further evaluation. He does not recommend heparin at this time as he believes that his elevated troponin is likely secondary to inflammation. He did recommend admission to hospital for 24 to 48 hours. I did discuss with him at this time that we do not have cardiology or oncology. He states that they would be willing to likely accept the patient at [facility]. Therefore I spoke with Dr. Landeros who accepted the patient for transfer. I did discuss transfer with the patient and at bedside. They were amenable to this plan. The patient will be transferred via ALS ambulance DISPOSITION: Transfer to [facility] CONDITION: Fair PROCEDURES: Cardiac monitoring & pulse oximetry interpretation FINAL IMPRESSION(S)/DIAGNOSES: 1. Acute elevated troponin, possible carditis 2. Acute dizziness and weakness possibly secondary to #1 3. Acute hypokalemia 4. Acute hypomagnesemia. 5. Acute hypocalcemia Critical Care Procedure Note Authorized and performed by: Ander Dunbar M.D. Critical Care Time: 43 minutes Due to a high probability of clinically significant, life threatening deterioration, the patient required my highest level of preparedness to intervene emergently and I personally spent this critical care time directly and personally managing the patient. This critical care time included obtaining a history, examining the patient, pulse oximetry; ordering and review of studies; arranging urgent treatment with development of a management plan; evaluation of a patients reponse to treatment; frequent assessment; and discussions with other providers. This critical care time was performed to assess and manage the high probability of imminent, life threatening deterioration that could result in multiorgan failure. It was exclusive of separate billable procedures and treating other patients. Please see MDM section and rest of the note for further information on patient assessment and treatment. Please see MDM section and rest of the note for further information on patient assessment and treatment. - Related Data Allergies Allergy/AdvReac Type Severity Reaction Status Date / Time hydrocodone Allergy Irritabilit Verified 11/21/20 08:58 y morphine Allergy Irritabilit Verified 11/21/20 08:58 y Home Meds: Home Meds Metoprolol Tartrate [Lopressor] 12.5 mg PO BID 07/04/15 [History] Clopidogrel Bisulfate [Plavix] 75 mg PO DAILY 06/29/19 [History] Multivitamin [Multi-Vitamin Daily] 1 tab PO DAILY 02/17/20 [History] [place]-3 Fatty Acids/Fish Oil [Fish Oil 1,200 mg Softgel] 1,200 mg PO BID 06/29/19 [History] Rosuvastatin [Crestor] 20 mg PO DAILY 06/29/19 [History] Venlafaxine [Venlafaxine HCl ER] 150 mg PO DAILY 06/29/19 [History] hydroCHLOROthiazide [Hydrochlorothiazide] 25 mg PO DAILY 06/29/19 [History] lisinopriL [Zestril] 10 mg PO DAILY 06/29/19 [History] Apixaban [Eliquis] 1 tab PO BID 11/21/20 [History] Calcium Carbonate [Calcium] 1 tab PO BID 11/21/20 [History] Esomeprazole Magnesium 1 cap PO BID 11/21/20 [History] traMADol [Ultram] 1 tab PO Q12HR 11/21/20 [History] Past Medical History HEENT History: Reports: Cataract, Hard of Hearing Other HEENT History: wears glasses, has bilateral hearing aides Cardiovascular History: Reports: CAD, High Cholesterol, Hypertension, Stents Other Cardiovascular History: Heart Stent placed 10/2011, [place], Varicose Vein Stripping Left Respiratory History: Reports: Sleep Apnea Other Respiratory History: has not used a CPAP for many years Gastrointestinal History: Reports: Gastritis, GERD, Hiatal Hernia, Other (See Below) Other Gastrointestinal History: Allen's Esophagus Genitourinary History: Reports: None Musculoskeletal History: Reports: Arthritis, Fracture, Gout, Osteoarthritis Other Musculoskeletal History: hx of fx femur Neurological History: Reports: None Psychiatric History: Reports: Anxiety, Depression Endocrine/Metabolic History: Reports: Obesity/BMI 30+ Hematologic History: Reports: Anticoagulation Therapy, Iron Deficiency Immunologic History: Reports: None Oncologic (Cancer) History: Reports: Other (See Below) Other Oncologic History: Shoulder, Pelvis, Lung CA, Glands in Chest Dermatologic History: Reports: None, Other (See Below) Other Dermatologic History: "itchy legs" - possible dry skin - Infectious Disease History Infectious Disease History: Reports: Chicken Pox, Measles, Mumps Other Infectious Disease History: childhood - Past Surgical History Head Surgeries/Procedures: Reports: None HEENT Surgical History: Reports: Cataract Surgery, None Cardiovascular Surgical History: Reports: Coronary Artery Stent, Varicose Other Cardiovascular Surgeries/Procedures: Angioplasty stent placed- denies chest pain, hx of bilateral varicose vein stripping Respiratory Surgical History: Reports: None GI Surgical History: Reports: Colonoscopy, EGD Other GI Surgeries/Procedures: Esophagus stretching, Radio Frequency Ablation x3 Male Surgical History: Reports: None Endocrine Surgical History: Reports: None Neurological Surgical History: Reports: None Musculoskeletal Surgical History: Reports: Knee Replacement, ORIF Other Musculoskeletal Surgeries/Procedures:: hx of ORIF fx femur- hardware removed, hx of bilateral TKA in '16 Oncologic Surgical History: Reports: None Dermatological Surgical History: Reports: None Social & Family History - Family History Family Medical History: No Pertinent Family History Cardiac: Reports: Other (See Below) Other Cardiac Family History: unknown condition Respiratory: Reports: TB Neurological: Reports: CVA Endocrine/Metabolic: Reports: Obesity/MBI 30+ Oncologic: Reports: Brain - Tobacco Use Tobacco Use Status *Q: Former Tobacco User Used Tobacco, but Quit: Yes Month/Year Tobacco Last Used: 1982 - Recreational Drug Use Recreational Drug Use: No ED ROS GENERAL - Review of Systems Review Of Systems: See Below ED EXAM, GENERAL - Physical Exam Exam: See Below Course - Vital Signs Last Recorded V/S: Last Vital Signs Temp 36.3 C 11/21/20 10:25 Pulse 81 11/21/20 10:25 Resp 18 11/21/20 10:25 BP 109/63 11/21/20 10:25 Pulse Ox 97 11/21/20 10:25 - Orders/Labs/Meds Orders: Active Orders 24 hr Category Date Time Status Cardiac Monitoring [RC] . DIRECTED Care 11/21/20 08:44 Active EKG 12 Lead [EKG Documentation Completion] [RC] STAT Care 11/21/20 09:34 Active EKG Documentation Completion [RC] STAT Care 11/21/20 08:44 Active Pulse Oximetry [RC] ASDIRECTED Care 11/21/20 08:44 Active B-TYPE NATRIURETIC PEPTIDE,BNP [CHEM] Stat Lab 11/21/20 08:43 Received Magnesium Sulfate/Water [Magnesium Sulfate in Water 2 Med 11/21/20 09:35 Active GM/50 ML] 2 gm Premix Bag 1 bag IV ONETIME Potassium Chloride Riders [KCL in Water 40 MEQ/100 ML] Med 11/21/20 09:35 Active 40 meq Premix Bag 1 bag IV ONETIME Sodium Chloride 0.9% [Normal Saline] 1,000 ml Med 11/21/20 09:37 Active IV STAT Medication Orders Magnesium Sulfate 2 gm/ Premix 50 mls @ 12.5 mls/hr IV ONETIME ONE Stop: 11/21/20 13:34 Last Admin: 11/21/20 09:39 Dose: 12.5 mls/hr Documented by: JESSE Potassium Chloride 40 meq/ (Premix) 100 mls @ 25 mls/hr IV ONETIME ONE Stop: 11/21/20 13:34 Last Admin: 11/21/20 09:49 Dose: 25 mls/hr Documented by: JESSE Sodium Chloride (Normal Saline) 1,000 mls @ 125 mls/hr IV STAT STA Stop: 11/21/20 17:36 Last Admin: 11/21/20 09:40 Dose: 125 mls/hr Documented by: JESSE Labs: Laboratory Tests 11/21/20 11/21/20 11/21/20 Range/Units 08:43 08:43 08:43 WBC 4.55 (4.0-11.0) K/uL RBC 3.67 L (4.50-5.90) M/uL Hgb 11.0 L (13.0-17.0) g/dL Hct 32.5 L (38.0-50.0) % MCV 88.6 (80.0-98.0) fL MCH 30.0 (27.0-32.0) pg MCHC 33.8 (31.0-37.0) g/dL RDW Std Deviation 46.4 (28.0-62.0) fl RDW Coeff of [place] 14 (11.0-15.0) % Plt Count 223 (150-400) K/uL MPV 9.50 (7.40-12.00) fL Neut % (Auto) 79.9 (48.0-80.0) % Lymph % (Auto) 9.2 L (16.0-40.0) % [place] % (Auto) 9.5 (0.0-15.0) % Eos % (Auto) 0.7 (0.0-7.0) % Baso % (Auto) 0.7 (0.0-1.5) % Neut # (Auto) 3.6 (1.4-5.7) K/uL Lymph # (Auto) 0.4 L (0.6-2.4) K/uL [place] # (Auto) 0.4 (0.0-0.8) K/uL Eos # (Auto) 0.0 (0.0-0.7) K/uL Baso # (Auto) 0.0 (0.0-0.1) K/uL Nucleated RBC % 0.0 /100WBC Nucleated RBCs # 0 K/uL Sodium 132 L (136-148) mmol/L Potassium 3.1 L (3.5-5.1) mmol/L Chloride 98 (98-107) mmol/L Carbon Dioxide 20.7 L (21.0-32.0) mmol/L BUN 17 (7.0-18.0) mg/dL Creatinine 1.1 (0.8-1.3) mg/dL Est Cr Clr Drug Dosing 70.42 mL/min Estimated GFR (MDRD) > 60.0 ml/min Glucose 104 (74-106) mg/dL Calcium 7.2 L (8.5-10.1) mg/dL Magnesium 1.6 L (1.8-2.4) mg/dL Total Bilirubin 0.5 (0.2-1.0) mg/dL AST 90 H (15-37) IU/L ALT 120 H (14-63) IU/L Alkaline Phosphatase 116 (46-116) U/L Troponin I 0.146 H* (0.000-0.056) ng/mL Total Protein 6.7 (6.4-8.2) g/dL Albumin 2.6 L (3.4-5.0) g/dL Globulin 4.1 H (2.6-4.0) g/dL Albumin/Globulin Ratio 0.6 L (0.9-1.6) Free T4 1.34 (0.76-1.46) ng/dL TSH 3rd Generation 1.81 (0.36-3.74) uIU/mL Meds: Medications Generic Name Dose Route Start Last Admin Trade Name Freq PRN Reason Stop Dose Admin Magnesium Sulfate 2 gm/ Premix 50 mls @ 12.5 mls/hr 11/21/20 09:35 11/21/20 09:39 IV 11/21/20 13:34 12.5 mls/hr ONETIME ONE Administration Potassium Chloride 40 meq/ 100 mls @ 25 mls/hr 11/21/20 09:35 11/21/20 09:49 Premix IV 11/21/20 13:34 25 mls/hr ONETIME ONE Administration Sodium Chloride 1,000 mls @ 125 mls/hr 11/21/20 09:37 11/21/20 09:40 Normal Saline IV 11/21/20 17:36 125 mls/hr STAT STA Administration Discontinued Medications Generic Name Dose Route Start Last Admin Trade Name Maximus PRN Reason Stop Dose Admin Aspirin 324 mg 11/21/20 09:34 11/21/20 09:39 Aspirin 81 Mg Tab.Chew PO 11/21/20 09:35 324 mg ONETIME ONE Administration Calcium Gluconate 1 gm 11/21/20 10:05 11/21/20 10:48 Calcium Gluconate 10% 1 Gm/10 Ml Sdv IVPUSH 11/21/20 10:06 1 gm ONETIME ONE Administration Departure - Departure Time of Disposition: 11:47 Disposition: DC/Tfer to Acute Hospital 02 Condition: Fair Clinical Impression: Carditis, Troponin level elevated - Discharge Information Referrals: Nataliya Dale NP [Primary Care Provider] - Forms: ED Department Discharge Sepsis Event Note (ED) - Evaluation Sepsis Screening Result: No Definite Risk - Focused Exam Vital Signs: Vital Signs Temp Pulse Resp BP Pulse Ox 11/21/20 10:25 36.3 C 81 18 109/63 97 11/21/20 09:03 77 18 97/61 95 11/21/20 08:30 36.6 C 80 18 107/69 97 - My Orders Last 24 Hours: My Active Orders 11/21/20 08:43 B-TYPE NATRIURETIC PEPTIDE,BNP [CHEM] Stat 11/21/20 08:44 Cardiac Monitoring [RC] . DIRECTED EKG Documentation Completion [RC] STAT Pulse Oximetry [RC] ASDIRECTED 11/21/20 09:34 EKG 12 Lead [EKG Documentation Completion] [RC] STAT 11/21/20 09:35 Magnesium Sulfate/Water [Magnesium Sulfate in Water 2 GM/50 ML] 2 gm Premix Bag 1 bag IV ONETIME Potassium Chloride Riders [KCL in Water 40 MEQ/100 ML] 40 meq Premix Bag 1 bag IV ONETIME 11/21/20 09:37 Sodium Chloride 0.9% [Normal Saline] 1,000 ml IV STAT - Assessment/Plan Last 24 Hours: My Active Orders 11/21/20 08:43 B-TYPE NATRIURETIC PEPTIDE,BNP [CHEM] Stat 11/21/20 08:44 Cardiac Monitoring [RC] . DIRECTED EKG Documentation Completion [RC] STAT Pulse Oximetry [RC] ASDIRECTED 11/21/20 09:34 EKG 12 Lead [EKG Documentation Completion] [RC] STAT 11/21/20 09:35 Magnesium Sulfate/Water [Magnesium Sulfate in Water 2 GM/50 ML] 2 gm Premix Bag 1 bag IV ONETIME Potassium Chloride Riders [KCL in Water 40 MEQ/100 ML] 40 meq Premix Bag 1 bag IV ONETIME 11/21/20 09:37 Sodium Chloride 0.9% [Normal Saline] 1,000 ml IV STAT
== END 2020-11-21 12:00 ==
LOC: MW.ED 08:21
DX: R42 Dizziness and giddiness (principal); I11.9 Hypertensive heart disease without heart failure; E87.6 Hypokalemia; E83.51 Hypocalcemia; E83.42 Hypomagnesemia; I25.10 Atherosclerotic heart disease of native coronary artery without angina pectoris; E78.00 Pure hypercholesterolemia, unspecified; E66.9 Obesity, unspecified; R79.89 Other specified abnormal findings of blood chemistry; Z68.28 Body mass index [BMI] 28.0-28.9, adult; Z87.891 Personal history of nicotine dependence; Z88.5 Allergy status to narcotic agent; Z88.6 Allergy status to analgesic agent
CPT/HCPCS: 36415; 70450; 71045; 80053; 83735; 83880; 84439; 84443; 84484; 85025; 93005; 96365; 96366; 96368; 96375; 99285; A9270; J0610; J3475; J3480; J7030

== ENCOUNTER 2021-03-28 15:07 | Inpatient (IN) | payer BC, MEDICARE ==
[2021-03-28] MEDS ORDERED: Sodium Chloride 0.9% 2.5 ML Syringe FLUSH PRN (16:01)
[2021-03-28] MEDS ORDERED: Sodium Chloride 0.9% 10 ML Syringe FLUSH PRN (16:01)
[2021-03-28] MEDS ORDERED: Sodium Chloride 0.9% 1,000 ML IV ONE ×5 (16:14→17:27)
--- NOTE | 2021-03-28 16:18 | PCM.EKG ---
#1 Interpretation EKG Date: 03/28/21 Time: 16:12 Rhythm: NSR Rate (Beats/Min): 96 ST-T: Normal
--- NOTE | 2021-03-28 17:05 | CR ---
INDICATION: Shortness of breath TECHNIQUE: Chest 1 view. COMPARISON: 11/21/2020 FINDINGS: Cardiovascular and mediastinum: Heart size and vasculature are normal in caliber and appearance. Mediastinum is within normal limits. Right-sided mary catheter tip in the distal SVC. Lungs and pleural space: Lungs are clear. No sign of infiltrate or mass. No sign of pleural effusion. No pneumothorax. Bones and soft tissues: No significant findings. IMPRESSION: Unremarkable chest. Dictated by King Sheldon MD @ 03/28/2021 5:03:28 PM (Electronically Signed)
[2021-03-28] MEDS ORDERED: Piperacillin/Tazobactam 3.375 GM in Sodium Chloride 0.9% 50 ML IV ONE (17:10)
[2021-03-28 17:18] LABS: BLOOD UREA NITROGEN,BUN 29 mg/dL (7.0-18.0); CARBON DIOXIDE,CO2 24.2 mmol/L (21.0-32.0); CHLORIDE,CL 104 mmol/L (98-107); GLUCOSE RANDOM 98 mg/dL (74-106); POTASSIUM,K 3.4 mmol/L (3.5-5.1); SODIUM,NA 139 mmol/L (136-148)
[2021-03-28 17:24] LABS: CORONAVIRUS COVID-19 NAA NEGATIVE (NEGATIVE); INFLUENZA A NAA NEGATIVE (NEGATIVE); INFLUENZA B NAA NEGATIVE (NEGATIVE)
[2021-03-28] MEDS ORDERED: Iopamidol 755 MG/ML 500 ML Multipack Bottle IVPUSH STA (18:57)
[2021-03-28] MEDS ORDERED: VANCOmycin 2 GM/400 ML 2 GM in Premix Bag 1 BAG IV ONE (19:15)
--- NOTE | 2021-03-28 19:53 | CT ---
INDICATION: Hypotension. Hypoxia. Lung cancer. History of PE September 2020, right lower lobe segmental pulmonary arteries, study at outside facility. COMPARISON: Chest radiograph from today. Report of the PET/CT scan from 01/10/2021. TECHNIQUE: CT examination of the chest was performed with the uneventful intravenous administration of 100 cc of Isovue 370 while 1.0 and 1.5 mm thick axial sections were obtained through the pulmonary arteries. Please note that all CT scans at this facility use dose modulation, iterative reconstruction, and/or weight-based dosing when appropriate to reduce radiation dose to as low as reasonably achievable. FINDINGS: : There is no sign of pulmonary embolism, with normal enhancement and branching of the pulmonary arteries. There is mild patchy infiltrates scattered throughout the perihilar right upper lobe, along with mild patchy infiltrate in the posterior aspect of the right middle lobe. The findings are that of early patchy right upper and right middle lobe pneumonia. There is mild patchy ground-glass interstitial infiltrate in the posterior portion of the posterior segment of the right upper lobe along the major fissure, probably atelectasis, but cannot exclude an atypical pneumonia such as COVID-19. No additional peripheral pulmonary infiltrates are evident. There is no sign of mediastinal or hilar mass or adenopathy. There is an LAD coronary stent. There is mild calcification of the RCA. The heart is normal in size. There is age appropriate appearance of the thoracic aorta and ascending great vessels. There is no sign of supraclavicular or axillary mass or adenopathy. The visualized superior liver has multiple low-density regions scattered throughout the dome involving both the left and right lobes, worrisome for multiple metastatic lesions. The visualized superior spleen, pancreas, kidneys, and adrenals are normal in appearance. There is a moderate-sized hiatal hernia projecting into the medial left lower chest. There is prominent flattening and fragmentation of the glenoid on the left, consistent with a metastatic lesion and pathologic fracture. The right glenohumeral articulation is normal in appearance. There is mild scoliosis of the thoracic spine convex towards the right with moderate, age-appropriate hypertrophic change scattered throughout the mid and inferior thoracic spine IMPRESSION: No sign of pulmonary embolism. Mild patchy alveolar infiltrates in the right upper and right middle lobes consistent with early pneumonia. Confluent ground-glass density in the posterior aspect of the posterior segment of the right upper lobe along the major fissure is probably atelectasis, but cannot exclude COVID-19 pneumonia. No sign of any hilar or mediastinal lymphadenopathy and no sign of any lung mass to correlate with the history of previous lung cancer. Fragmentation and flattening of the left glenoid consistent with a metastatic lesion with pathologic fracture. Multiple low-density nodules scattered throughout the dome of the liver, worrisome for metastatic disease to the liver. Moderate-sized hiatal hernia. Please note that all CT scans at this facility use dose modulation, iterative reconstruction, and/or weight-based dosing when appropriate to reduce radiation dose to as low as reasonably achievable. Dictated by Joey Mascorro MD @ 03/28/2021 7:52:20 PM (Electronically Signed)
[2021-03-28] MEDS ORDERED: Azithromycin 500 MG Vial IV SCH (21:00)
[2021-03-28] MEDS ORDERED: Piperacillin/Tazobactam 3.375 GM in Sodium Chloride 0.9% 50 ML IV SCH (21:00)
[2021-03-28] MEDS ORDERED: Non-Formulary Medication 1 Each (Esomeprazole Magnesium [Esomeprazole Magnesium] 40 MG Cap PO SCH (21:00)
--- NOTE | 2021-03-28 21:00 | EDM.PDOC ---
ED HPI GENERAL MEDICAL PROBLEM - General Chief Complaint: Respiratory Problem Stated Complaint: SOB Time Seen by Provider: 03/28/21 15:48 Source of Information: Reports: Patient, Family History Limitations: Reports: No Limitations - History of Present Illness INITIAL COMMENTS - FREE TEXT/NARRATIVE: HISTORY AND PHYSICAL: History of present illness: Patient is a 75-year-old male, with a history of metastatic stage 4 lung cancer, coronary artery disease status post 1 stent, hyperlipidemia, hypertension, undergoing chemotherapy for stage IV liver cancer, who presents emergency room today with concern of dizziness. According to patient's , patient started complaining of dizziness yesterday. Patient states that they went to [place] today and states that he was about to get the COVID-19 second vaccine. Patient states that he started becoming very dizzy and short of breath and his states that he was "not making much sense "when he was talking. The states that they refused to give him the COVID-19 vaccine. states that they called the cancer center, who encourage patient to come to the emergency room, and states that they drove back from [place] come to the emergency room here. Patient states that he does feel slightly better with laying back but states that he does feel dizzy with sitting or standing. Patient states that he has been trying to drink lots of fluid in case he is dehydrated from his chemotherapy. Patient states that he last had his chemotherapy a few days ago and states that he has generally felt well despite chemo. Patient denies fever, chills, chest pain, shortness of breath, or cough. Denies headache, neck stiff ness, change in vision, syncope, or near syncope. Denies nausea, vomiting, abdominal pain, diarrhea, constipation, or dysuria. Has not noted any blood in urine or stool. Patient has been eating and drinking appropriately. Review of systems: As per history of present illness and below otherwise all systems reviewed and negative. Past medical history: As per history of present illness and as reviewed below otherwise noncontributory. Surgical history: As per history of present illness and as reviewed below otherwise noncontributory. Social history: See social history for further information Family history: As per history of present illness and as reviewed below otherwise noncontributory. Physical exam: General: Patient is alert, oriented, and in no acute distress. Patient laying comfortably on exam table. Patient temp 100 orally/confirmed rectally, blood pressure is 88/55, otherwise vitals stable and reviewed by me. HEENT: Atraumatic, normocephalic, pupils equal and reactive bilaterally, negative for conjunctival pallor or scleral icterus, mucous membranes moist, throat clear, neck supple, nontender, trachea midline. No drooling or trismus noted. No meningeal signs. No hot potato voice noted. Lungs: Clear to auscultation, breath sounds equal bilaterally, chest nontender. Heart: S1S2, regular rate and rhythm without overt murmur Abdomen: Soft, nondistended, nontender. Negative for masses or hepatosplenomegaly. Negative for costovertebral tenderness. Pelvis: Stable nontender. Genitourinary: Deferred. Rectal: Deferred. Skin: Intact, warm, dry. No lesions or rashes noted. Extremities: Atraumatic, negative for cords or calf pain. Neurovascular unremarkable. Neuro: Awake, alert, oriented. Cranial nerves II through XII unremarkable. Cerebellum unremarkable. Motor and sensory unremarkable throughout. Exam nonfocal. Medical Decision Making: Patient is a 75-year-old male with a history of metastatic lung cancer on chemotherapy, immunosuppression status secondary to current chemotherapy, coronary artery disease status post stent, hyperlipidemia, and hypertension who presents emergency room today secondary to dizziness since yesterday. Upon arrival to the ED, patient is nearly febrile at 100 degrees rectally and orally confirmed. Patient is also hypotensive with a blood pressure of 88/55 with a mean arterial pressure of 65. Examination of patient is otherwise unremarkable. I did perform brief bedside orthostatics and patient does become dizzy at bedside so I requested him to lay back down prior to full completion of orthostatics. At this time, will initiate a fluid bolus due to hypotension, also concern of immunosuppression status with a temperature of 100, so we will also obtain lactic, blood cultures, urinalysis, chest x-ray looking for source of infection. See Dr. Mascorro's dictation for specific EKG interpretation. Otherwise, normal sinus rhythm without STEMI. CBC does show patient's white blood cell count is decreased at 3.92. Patient is anemic with red blood cells at 3.1, hemoglobin 10.2, and hematocrit of 29.9. In comparison to past lab work, this does appear stable to patient's baseline. At this time, source of infection is unknown. While awaiting diagnostic completion, patient is finishing his first bolus liter, he remains hypotensive and is now 75/46 with a MAP of 50-55, still appears to be mentating well. Will complete a full 30/cc kilogram bolus and reassess patient continually. However, patient's white blood cell count is less than 4000 (immunocompromised) and his heart rate is greater than 90. Patient's systolic blood pressures less than 90 and his MAP is less than 65. Lactic acid is still pending at this time as well as remainder of his lab work. Will empirically start antibiotics for presumed severe sepsis with unknown source at this time CMP does show mild hypokalemia at 3.4, creatinine is elevated at 1.4 and BUN of 29. Corrected calcium is at 7.9 for albumin. Phosphorus is mildly decreased at 2.5. Magnesium also mildly decreased at 1.6. Troponin negative. BNP within normal limits. Otherwise mild derangements of CMP unremarkable. INR is within normal limits at 1.07. Patient's ABG shows a normal pH of 7.38. Urinalysis does show 2-4 white blood cells otherwise urinalysis is clear. Influenza and Covid negative. TSH within normal limits at 1.69. Chest x-ray is unremarkable. Following the full 30 cc/kg bolus, patient's blood pressure does improve to 114/60, RR 18, HR 98, and O2 on RA 93%. Patient remains otherwise vitally stable. He does express improvement of his dizziness as his blood pressure has improved. Cap refill is < 2 seconds. Angiography of the chest shows no sign of pulmonary embolism. Mild patchy alveolar infiltrates in the right upper and right middle lobes, consistent with pneumonia. Confluent groundglass density in the posterior aspect of the posterior segment of the right upper lobe along with the major fissure is probably atelectasis, but cannot exclude COVID-19. No sign of any hilar or mediastinal lymphadenopathy and no sign of any lung mass to correlate with a history of previous lung cancer. Fragmentation of flattening of the left glenoid consistent with a metastatic lesion with pathological fracture. Multiple low-density nodules scattered throughout the dome of the liver, worrisome for metastatic disease to the liver. Moderate sized hiatal hernia. Addendum was made to the angiography of the chest after PET/CT images were come paired. The hypodense region of the liver are unchanged from previous study and are probable cysts. The patchy area of infiltrate in the right upper and middle lobes are new, as the groundglass infiltrate in the posterior aspect of the posterior segment of the right upper lobe. Previously seen patchy consolidation in the posterior lateral left lung has cleared. Previously seen mild groundglass patchy density in the posterior lung base has cleared, consistent with clearing atelectasis. Moderate size hiatal hernia is unchanged. I did call and speak to the hospitalist on-call, Dr. Mcdonald, and he has come in to personally see and evaluate the patient. Will admit to inpatient ICU to Dr. Mcdonald Voices understanding and is agreeable to plan of care. Denies any further questions or concerns at this time. Diagnostics: EKG, CBC, CMP, troponin, BNP, chest x-ray, ABG, blood cultures x2, lactic acid, angiography chest, TSH Therapeutics: NS bolus 30cc/kg, Vancomycin, Zosyn Impression: Community acquired pneumonia, right upper/middle lobe SEPSIS Immunosuppression secondary to chemotherapy treatment Stage 4 lung cancer Anemia, stable Hypocalcemia, mild Hypophosphatemia, mild Hypomagnesemia, mild Plan: Admit to ICU inpatient to Dr. Mcdonald Definitive disposition and diagnosis as appropriate pending reevaluation and review of above. - Related Data Allergies Allergy/AdvReac Type Severity Reaction Status Date / Time hydrocodone Allergy Irritabilit Verified 03/28/21 15:41 y morphine Allergy Irritabilit Verified 03/28/21 15:41 y Home Meds: Home Meds Metoprolol Tartrate [Lopressor] 12.5 mg PO BID 07/04/15 [History] Clopidogrel Bisulfate [Plavix] 75 mg PO DAILY 06/29/19 [History] Multivitamin [Multi-Vitamin Daily] 1 tab PO DAILY 06/29/19 [History] [place]-3 Fatty Acids/Fish Oil [Fish Oil 1,200 mg Softgel] 1,200 mg PO BID 06/29/19 [History] Rosuvastatin [Crestor] 20 mg PO DAILY 06/29/19 [History] Venlafaxine [Venlafaxine HCl ER] 150 mg PO DAILY 06/29/19 [History] hydroCHLOROthiazide [Hydrochlorothiazide] 25 mg PO DAILY 06/29/19 [History] lisinopriL [Zestril] 10 mg PO DAILY 02/17/20 [History] Apixaban [Eliquis] 1 tab PO BID 11/21/20 [History] Calcium Carbonate [Calcium] 1 tab PO BID 11/21/20 [History] Esomeprazole Magnesium 1 cap PO BID 11/21/20 [History] traMADol [Ultram] 1 tab PO Q12HR 11/21/20 [History] Past Medical History HEENT History: Reports: Cataract, Hard of Hearing Other HEENT History: wears glasses, has bilateral hearing aides Cardiovascular History: Reports: CAD, High Cholesterol, Hypertension, Stents Other Cardiovascular History: Heart Stent placed 10/2011, [place], Varicose Vein Stripping Left Respiratory History: Reports: Sleep Apnea Other Respiratory History: has not used a CPAP for many years Gastrointestinal History: Reports: Gastritis, GERD, Hiatal Hernia, Other (See Below) Other Gastrointestinal History: Allen's Esophagus Genitourinary History: Reports: None Musculoskeletal History: Reports: Arthritis, Fracture, Gout, Osteoarthritis Other Musculoskeletal History: hx of fx femur Neurological History: Reports: None Psychiatric History: Reports: Anxiety, Depression Endocrine/Metabolic History: Reports: Obesity/BMI 30+ Hematologic History: Reports: Anticoagulation Therapy, Iron Deficiency Immunologic History: Reports: None Oncologic (Cancer) History: Reports: Other (See Below) Other Oncologic History: Shoulder, Pelvis, Lung CA, Glands in Chest Dermatologic History: Reports: None, Other (See Below) Other Dermatologic History: "itchy legs" - possible dry skin - Infectious Disease History Infectious Disease History: Reports: Chicken Pox, Measles, Mumps Other Infectious Disease History: childhood - Past Surgical History Head Surgeries/Procedures: Reports: None HEENT Surgical History: Reports: Cataract Surgery, None Cardiovascular Surgical History: Reports: Coronary Artery Stent, Varicose Other Cardiovascular Surgeries/Procedures: Angioplasty stent placed- denies chest pain, hx of bilateral varicose vein stripping Respiratory Surgical History: Reports: None GI Surgical History: Reports: Colonoscopy, EGD Other GI Surgeries/Procedures: Esophagus stretching, Radio Frequency Ablation x3 Male Surgical History: Reports: None Endocrine Surgical History: Reports: None Neurological Surgical History: Reports: None Musculoskeletal Surgical History: Reports: Knee Replacement, ORIF Other Musculoskeletal Surgeries/Procedures:: hx of ORIF fx femur- hardware removed, hx of bilateral TKA in ' Oncologic Surgical History: Reports: None Dermatological Surgical History: Reports: None Social & Family History - Family History Family Medical History: No Pertinent Family History Cardiac: Reports: Other (See Below) Other Cardiac Family History: unknown condition Respiratory: Reports: TB Neurological: Reports: CVA Endocrine/Metabolic: Reports: Obesity/MBI 30+ Oncologic: Reports: Brain - Tobacco Use Tobacco Use Status *Q: Never Tobacco User - Recreational Drug Use Recreational Drug Use: No ED ROS GENERAL - Review of Systems Review Of Systems: Comprehensive ROS is negative, except as noted in HPI. ED EXAM, GENERAL - Physical Exam Exam: See Below (see dictation) Course - Vital Signs Last Recorded V/S: Last Vital Signs Temp 100 F 03/28/21 16:38 Pulse 93 03/28/21 21:01 Resp 18 03/28/21 19:45 BP 107/63 03/28/21 21:01 Pulse Ox 97 03/28/21 21:01 Orthostatic Blood Pressure [ 73/38 Standing] Orthostatic Blood Pressure [ 75/46 Sitting] Orthostatic Blood Pressure [ 79/58 Supine] - Orders/Labs/Meds Orders: Active Orders 24 hr Category Date Time Status Cardiac Monitoring [RC] . DIRECTED Care 03/28/21 16:01 Active Orthostatic Vital Signs [RC] ASDIRECTED Care 03/28/21 16:24 Active CULTURE BLOOD [BC] Stat Lab 03/28/21 17:19 Received CULTURE BLOOD [BC] Stat Lab 03/28/21 17:28 Received CULTURE URINE [MREF] Stat Lab 03/28/21 16:50 Received VANCOMYCIN TROUGH [CHEM] Timed Lab 03/30/21 07:30 Ordered Apixaban [Eliquis] Med 03/28/21 21:00 Active 5 mg PO BID Azithromycin [Zithromax] Med 03/28/21 21:00 Active 500 mg IV Q24H Clopidogrel [Plavix] Med 03/29/21 09:00 Active 75 mg PO DAILY Esomeprazole Magnesium [Esomeprazole Magnesium] Med 03/28/21 21:00 Active 1 cap PO BID Pharmacy to Dose - Vancomycin Med 03/28/21 17:10 Pending 1 dose .XX ONETIME ONE Piperacillin/Tazobactam [Piperacil-Tazobact] 3.375 gm Med 03/28/21 21:00 Active Sodium Chloride 0.9% [Normal Saline AdvBag] 50 ml IV Q6H Rosuvastatin [Crestor] Med 03/29/21 09:00 Active 20 mg PO DAILY Sodium Chloride 0.9% [Saline Flush] Med 03/28/21 16:01 Active 10 ml FLUSH ASDIRECTED PRN Sodium Chloride 0.9% [Saline Flush] Med 03/28/21 16:01 Active 2.5 ml FLUSH ASDIRECTED PRN Vancomycin 1.25 gm Med 03/29/21 08:00 Active Sodium Chloride 0.9% [Normal Saline AdvBag] 250 ml IV Q12H Venlafaxine Med 03/29/21 09:00 Active 150 mg PO DAILY traMADol [Ultram] Med 03/28/21 21:00 Active 50 mg PO Q12HR Blood Culture x2 Reflex Set [OM.PC] Stat Oth 03/28/21 17:09 Ordered Saline Lock Insert [OM.PC] Stat Oth 03/28/21 16:01 Ordered Medication Orders Apixaban (Apixaban 5 Mg Tab) 5 mg PO BID [facility] Azithromycin (Azithromycin 500 Mg Vial) 500 mg IV Q24H [facility] Clopidogrel Bisulfate (Clopidogrel 75 Mg Tab) 75 mg PO DAILY [facility] Vancomycin HCl 1.25 gm/ Sodium (Chloride) 250 mls @ 166.667 mls/hr IV Q12H [facility] Piperacillin Sod/Tazobactam (Sod 3.375 gm/ Sodium Chloride) 50 mls @ 100 mls/hr IV Q6H [facility] Non-Formulary Medication (Esomeprazole Magnesium [Esomeprazole Magnesium]) 1 cap PO BID [facility] Non-Formulary Medication (Venlafaxine) 150 mg PO DAILY [facility] Rosuvastatin Calcium (Rosuvastatin 10 Mg Tab) 20 mg PO DAILY [facility] Sodium Chloride (Sodium Chloride 0.9% 10 Ml Syringe) 10 ml FLUSH ASDIRECTED PRN PRN Reason: Keep Vein Open Sodium Chloride (Sodium Chloride 0.9% 2.5 Ml Syringe) 2.5 ml FLUSH ASDIRECTED PRN PRN Reason: Keep Vein Open Tramadol HCl (Tramadol 50 Mg Tab) 50 mg PO Q12HR [facility] Vancomycin HCl (Pharmacy To Dose - Vancomycin) 1 dose .XX ONETIME ONE Stop: 03/28/21 17:11 Labs: Laboratory Tests 03/28/21 03/28/21 03/28/21 Range/Units 16:30 16:30 16:30 WBC 3.92 L (4.0-11.0) K/uL RBC 3.10 L (4.50-5.90) M/uL Hgb 10.2 L (13.0-17.0) g/dL Hct 29.9 L (38.0-50.0) % MCV 96.5 (80.0-98.0) fL MCH 32.9 H (27.0-32.0) pg MCHC 34.1 (31.0-37.0) g/dL RDW Std Deviation 53.4 (28.0-62.0) fl RDW Coeff of [place] 15 (11.0-15.0) % Plt Count 235 (150-400) K/uL MPV 9.10 (7.40-12.00) fL Neut % (Auto) 81.3 H (48.0-80.0) % Lymph % (Auto) 15.1 L (16.0-40.0) % [place] % (Auto) 2.3 (0.0-15.0) % Eos % (Auto) 1.0 (0.0-7.0) % Baso % (Auto) 0.3 (0.0-1.5) % Neut # (Auto) 3.2 (1.4-5.7) K/uL Lymph # (Auto) 0.6 (0.6-2.4) K/uL [place] # (Auto) 0.1 (0.0-0.8) K/uL Eos # (Auto) 0.0 (0.0-0.7) K/uL Baso # (Auto) 0.0 (0.0-0.1) K/uL Nucleated RBC % 0.0 /100WBC Nucleated RBCs # 0 K/uL INR ABG pH (7.35-7.45) ABG pCO2 (35-45) mmHG ABG pO2 (80-105) mmHG ABG HCO3 (22-26) mEq/L ABG Total CO2 (23-27) mmol/L ABG Base Excess (-2.0-3.0) Sodium 139 (136-148) mmol/L Potassium 3.4 L (3.5-5.1) mmol/L Chloride 104 (98-107) mmol/L Carbon Dioxide 24.2 (21.0-32.0) mmol/L BUN 29 H (7.0-18.0) mg/dL Creatinine 1.4 H (0.8-1.3) mg/dL Est Cr Clr Drug Dosing 55.33 mL/min Estimated GFR (MDRD) 49.5 ml/min Glucose 98 (74-106) mg/dL Lactic Acid (0.4-2.0) mmol/L Calcium 7.6 L (8.5-10.1) mg/dL Phosphorus 2.5 L (2.6-4.7) mg/dL Magnesium 1.6 L (1.8-2.4) mg/dL Total Bilirubin 0.7 (0.2-1.0) mg/dL AST 20 (15-37) IU/L ALT 35 (14-63) IU/L Alkaline Phosphatase 111 (46-116) U/L Troponin I < 0.050 (0.000-0.056) ng/mL B-Natriuretic Peptide (<100) PG/ML Total Protein 6.6 (6.4-8.2) g/dL Albumin 3.0 L (3.4-5.0) g/dL Globulin 3.6 (2.6-4.0) g/dL Albumin/Globulin Ratio 0.8 L (0.9-1.6) TSH, Ultra Sensitive (0.36-3.74) uIU/mL Urine Color Urine Appearance Urine pH (5.0-8.0) Ur Specific [place] (1.001-1.035) Urine Protein (NEGATIVE) mg/dL Urine Glucose (UA) (NEGATIVE) mg/dL Urine Ketones (NEGATIVE) mg/dL Urine Occult Blood (NEGATIVE) Urine Nitrite (NEGATIVE) Urine Bilirubin (NEGATIVE) Urine Urobilinogen (<2.0) EU/dL Ur Leukocyte Esterase (NEGATIVE) Urine RBC (0-2/HPF) Urine WBC (0-5/HPF) Ur Epithelial Cells (NONE-FEW) Amorphous Sediment (NEGATIVE) Urine Bacteria (NEGATIVE) Urine Mucus (NONE-MOD) Influenza Type A RNA NEGATIVE (NEGATIVE) Influenza Type B RNA NEGATIVE (NEGATIVE) SARS-CoV-2 RNA (TREV) NEGATIVE (NEGATIVE) 03/28/21 03/28/21 03/28/21 Range/Units 16:30 16:30 16:30 WBC (4.0-11.0) K/uL RBC (4.50-5.90) M/uL Hgb (13.0-17.0) g/dL Hct (38.0-50.0) % MCV (80.0-98.0) fL MCH (27.0-32.0) pg MCHC (31.0-37.0) g/dL RDW Std Deviation (28.0-62.0) fl RDW Coeff of [place] (11.0-15.0) % Plt Count (150-400) K/uL MPV (7.40-12.00) fL Neut % (Auto) (48.0-80.0) % Lymph % (Auto) (16.0-40.0) % [place] % (Auto) (0.0-15.0) % Eos % (Auto) (0.0-7.0) % Baso % (Auto) (0.0-1.5) % Neut # (Auto) (1.4-5.7) K/uL Lymph # (Auto) (0.6-2.4) K/uL [place] # (Auto) (0.0-0.8) K/uL Eos # (Auto) (0.0-0.7) K/uL Baso # (Auto) (0.0-0.1) K/uL Nucleated RBC % /100WBC Nucleated RBCs # K/uL INR ABG pH (7.35-7.45) ABG pCO2 (35-45) mmHG ABG pO2 (80-105) mmHG ABG HCO3 (22-26) mEq/L ABG Total CO2 (23-27) mmol/L ABG Base Excess (-2.0-3.0) Sodium (136-148) mmol/L Potassium (3.5-5.1) mmol/L Chloride (98-107) mmol/L Carbon Dioxide (21.0-32.0) mmol/L BUN (7.0-18.0) mg/dL Creatinine (0.8-1.3) mg/dL Est Cr Clr Drug Dosing mL/min Estimated GFR (MDRD) ml/min Glucose (74-106) mg/dL Lactic Acid 1.3 (0.4-2.0) mmol/L Calcium (8.5-10.1) mg/dL Phosphorus (2.6-4.7) mg/dL Magnesium (1.8-2.4) mg/dL Total Bilirubin (0.2-1.0) mg/dL AST (15-37) IU/L ALT (14-63) IU/L Alkaline Phosphatase (46-116) U/L Troponin I (0.000-0.056) ng/mL B-Natriuretic Peptide 13 (<100) PG/ML Total Protein (6.4-8.2) g/dL Albumin (3.4-5.0) g/dL Globulin (2.6-4.0) g/dL Albumin/Globulin Ratio (0.9-1.6) TSH, Ultra Sensitive 1.69 (0.36-3.74) uIU/mL Urine Color Urine Appearance Urine pH (5.0-8.0) Ur Specific [place] (1.001-1.035) Urine Protein (NEGATIVE) mg/dL Urine Glucose (UA) (NEGATIVE) mg/dL Urine Ketones (NEGATIVE) mg/dL Urine Occult Blood (NEGATIVE) Urine Nitrite (NEGATIVE) Urine Bilirubin (NEGATIVE) Urine Urobilinogen (<2.0) EU/dL Ur Leukocyte Esterase (NEGATIVE) Urine RBC (0-2/HPF) Urine WBC (0-5/HPF) Ur Epithelial Cells (NONE-FEW) Amorphous Sediment (NEGATIVE) Urine Bacteria (NEGATIVE) Urine Mucus (NONE-MOD) Influenza Type A RNA (NEGATIVE) Influenza Type B RNA (NEGATIVE) SARS-CoV-2 RNA (TREV) (NEGATIVE) 03/28/21 03/28/21 03/28/21 Range/Units 16:30 16:50 18:10 WBC (4.0-11.0) K/uL RBC (4.50-5.90) M/uL Hgb (13.0-17.0) g/dL Hct (38.0-50.0) % MCV (80.0-98.0) fL MCH (27.0-32.0) pg MCHC (31.0-37.0) g/dL RDW Std Deviation (28.0-62.0) fl RDW Coeff of [place] (11.0-15.0) % Plt Count (150-400) K/uL MPV (7.40-12.00) fL Neut % (Auto) (48.0-80.0) % Lymph % (Auto) (16.0-40.0) % [place] % (Auto) (0.0-15.0) % Eos % (Auto) (0.0-7.0) % Baso % (Auto) (0.0-1.5) % Neut # (Auto) (1.4-5.7) K/uL Lymph # (Auto) (0.6-2.4) K/uL [place] # (Auto) (0.0-0.8) K/uL Eos # (Auto) (0.0-0.7) K/uL Baso # (Auto) (0.0-0.1) K/uL Nucleated RBC % /100WBC Nucleated RBCs # K/uL INR 1.07 ABG pH 7.38 (7.35-7.45) ABG pCO2 34 L (35-45) mmHG ABG pO2 72 L (80-105) mmHG ABG HCO3 20 L (22-26) mEq/L ABG Total CO2 18.0 L (23-27) mmol/L ABG Base Excess -4.4 L (-2.0-3.0) Sodium (136-148) mmol/L Potassium (3.5-5.1) mmol/L Chloride (98-107) mmol/L Carbon Dioxide (21.0-32.0) mmol/L BUN (7.0-18.0) mg/dL Creatinine (0.8-1.3) mg/dL Est Cr Clr Drug Dosing mL/min Estimated GFR (MDRD) ml/min Glucose (74-106) mg/dL Lactic Acid (0.4-2.0) mmol/L Calcium (8.5-10.1) mg/dL Phosphorus (2.6-4.7) mg/dL Magnesium (1.8-2.4) mg/dL Total Bilirubin (0.2-1.0) mg/dL AST (15-37) IU/L ALT (14-63) IU/L Alkaline Phosphatase (46-116) U/L Troponin I (0.000-0.056) ng/mL B-Natriuretic Peptide (<100) PG/ML Total Protein (6.4-8.2) g/dL Albumin (3.4-5.0) g/dL Globulin (2.6-4.0) g/dL Albumin/Globulin Ratio (0.9-1.6) TSH, Ultra Sensitive (0.36-3.74) uIU/mL Urine Color YELLOW Urine Appearance CLEAR Urine pH 6.5 (5.0-8.0) Ur Specific [place] 1.020 (1.001-1.035) Urine Protein TRACE H (NEGATIVE) mg/dL Urine Glucose (UA) NEGATIVE (NEGATIVE) mg/dL Urine Ketones NEGATIVE (NEGATIVE) mg/dL Urine Occult Blood NEGATIVE (NEGATIVE) Urine Nitrite NEGATIVE (NEGATIVE) Urine Bilirubin NEGATIVE (NEGATIVE) Urine Urobilinogen 1.0 (<2.0) EU/dL Ur Leukocyte Esterase NEGATIVE (NEGATIVE) Urine RBC 0-2 (0-2/HPF) Urine WBC 2-4 (0-5/HPF) Ur Epithelial Cells OCCASIONAL (NONE-FEW) Amorphous Sediment LIGHT (NEGATIVE) Urine Bacteria FEW (NEGATIVE) Urine Mucus LIGHT (NONE-MOD) Influenza Type A RNA (NEGATIVE) Influenza Type B RNA (NEGATIVE) SARS-CoV-2 RNA (TREV) (NEGATIVE) Meds: Medications Generic Name Dose Route Start Last Admin Trade Name Freq PRN Reason Stop Dose Admin Apixaban 5 mg 03/28/21 21:00 Apixaban 5 Mg Tab PO BID [facility] Azithromycin 500 mg 03/28/21 21:00 Azithromycin 500 Mg Vial IV Q24H [facility] Clopidogrel Bisulfate 75 mg 03/29/21 09:00 Clopidogrel 75 Mg Tab PO DAILY [facility] Vancomycin HCl 1.25 gm/ Sodium 250 mls @ 166.667 mls/hr 03/29/21 08:00 Chloride IV Q12H [facility] Piperacillin Sod/Tazobactam 50 mls @ 100 mls/hr 03/28/21 21:00 Sod 3.375 gm/ Sodium Chloride IV Q6H [facility] Non-Formulary Medication 1 cap 03/28/21 21:00 Esomeprazole Magnesium [Esomeprazole Magnesium] PO BID [facility] Non-Formulary Medication 150 mg 03/29/21 09:00 Venlafaxine PO DAILY [facility] Rosuvastatin Calcium 20 mg 03/29/21 09:00 Rosuvastatin 10 Mg Tab PO DAILY [facility] Sodium Chloride 10 ml 03/28/21 16:01 Sodium Chloride 0.9% 10 Ml Syringe FLUSH ASDIRECTED PRN Keep Vein Open Sodium Chloride 2.5 ml 03/28/21 16:01 Sodium Chloride 0.9% 2.5 Ml Syringe FLUSH ASDIRECTED PRN Keep Vein Open Tramadol HCl 50 mg 03/28/21 21:00 Tramadol 50 Mg Tab PO Q12HR [facility] Vancomycin HCl 1 dose 03/28/21 17:10 Pharmacy To Dose - Vancomycin .XX 03/28/21 17:11 ONETIME ONE Discontinued Medications Generic Name Dose Route Start Last Admin Trade Name Freq PRN Reason Stop Dose Admin Sodium Chloride 1,000 mls @ 999 mls/hr 03/28/21 16:14 03/28/21 16:53 Normal Saline IV 03/28/21 17:14 999 mls/hr STAT ONE Administration Piperacillin Sod/Tazobactam 50 mls @ 100 mls/hr 03/28/21 17:10 03/28/21 17:45 Sod 3.375 gm/ Sodium Chloride IV 03/28/21 17:39 100 mls/hr ONETIME ONE Administration Sodium Chloride 1,000 mls @ 999 mls/hr 03/28/21 17:15 03/28/21 17:45 Normal Saline IV 03/28/21 18:15 999 mls/hr STAT ONE Administration Sodium Chloride 1,000 mls @ 999 mls/hr 03/28/21 17:24 03/28/21 17:46 Normal Saline IV 03/28/21 18:24 999 mls/hr STAT ONE Administration Sodium Chloride 1,000 mls @ 999 mls/hr 03/28/21 17:26 03/28/21 19:37 Normal Saline IV 03/28/21 18:26 999 mls/hr STAT ONE Administration Sodium Chloride 1,000 mls @ 250 mls/hr 03/28/21 17:27 03/28/21 20:00 Normal Saline IV 03/28/21 21:26 250 mls/hr STAT ONE Administration Vancomycin HCl 2 gm/ Premix 400 mls @ 200 mls/hr 03/28/21 19:15 03/28/21 20:27 IV 03/28/21 21:14 200 mls/hr STAT ONE Administration Iopamidol 100 ml 03/28/21 18:57 Iopamidol 755 Mg/Ml 500 Ml Multipack Bottle IVPUSH 03/28/21 18:58 ONETIME STA Vancomycin HCl 1 dose 03/28/21 21:00 Pharmacy To Dose - Vancomycin .XX ASDIRECTED [facility] Departure - Departure Time of Disposition: 21:42 Disposition: Admitted As Inpatient 67 Clinical Impression: Immunocompromised Community acquired pneumonia Qualifiers: Laterality: right Lung location: upper lobe of lung Qualified Code(s): J18.9 - Pneumonia, unspecified organism Sepsis Qualifiers: Sepsis type: sepsis due to unspecified organism Sepsis acute organ dysfunction status: unspecified Qualified Code(s): A41.9 - Sepsis, unspecified organism Stage 4 lung cancer Qualifiers: Laterality: right Qualified Code(s): C34.91 - Malignant neoplasm of unspecified part of right bronchus or lung - Discharge Information Sepsis Event Note (ED) - Evaluation Sepsis Screening Result: No Definite Risk Current Stage of Sepsis: Severe Sepsis Possible Source of Sepsis: Pulmonary - Focused Exam Sepsis Event Note Statement: Focused Sepsis Exam Completed Vital Signs: Vital Signs Temp Temp Pulse Resp BP Pulse Ox 03/28/21 21:01 93 107/63 97 03/28/21 19:45 91 18 129/74 95 03/28/21 19:15 81 18 114/61 97 03/28/21 18:15 98 18 112/71 96 03/28/21 17:23 92 91/51 L 97 03/28/21 17:13 995 H 91/53 L 93 L 03/28/21 16:38 100 F 03/28/21 16:06 96/55 L 03/28/21 15:43 98.4 F 99 16 88/81 L 96 Capillary Refill, Detail: Less than/Equal to (</=) 2 Seconds Pulse Description: 1+ Thready Peripheral Pulse Location: Radial Skin Exam (Focused Sepsis): Normal Turgor, Flushed Date Exam was Performed: 03/28/21 Time Exam was Performed: 17:30 - My Orders Last 24 Hours: My Active Orders 03/28/21 16:01 Cardiac Monitoring [RC] . DIRECTED Sodium Chloride 0.9% [Saline Flush] 10 ml FLUSH ASDIRECTED PRN Sodium Chloride 0.9% [Saline Flush] 2.5 ml FLUSH ASDIRECTED PRN Saline Lock Insert [OM.PC] Stat 03/28/21 16:24 Orthostatic Vital Signs [RC] ASDIRECTED 03/28/21 16:50 CULTURE URINE [MREF] Stat 03/28/21 17:09 Blood Culture x2 Reflex Set [OM.PC] Stat 03/28/21 17:10 Pharmacy to Dose - Vancomycin 1 dose .XX ONETIME ONE 03/28/21 17:19 CULTURE BLOOD [BC] Stat 03/28/21 17:28 CULTURE BLOOD [BC] Stat - Assessment/Plan Last 24 Hours: My Active Orders 03/28/21 16:01 Cardiac Monitoring [RC] . DIRECTED Sodium Chloride 0.9% [Saline Flush] 10 ml FLUSH ASDIRECTED PRN Sodium Chloride 0.9% [Saline Flush] 2.5 ml FLUSH ASDIRECTED PRN Saline Lock Insert [OM.PC] Stat 03/28/21 16:24 Orthostatic Vital Signs [RC] ASDIRECTED 03/28/21 16:50 CULTURE URINE [MREF] Stat 03/28/21 17:09 Blood Culture x2 Reflex Set [OM.PC] Stat 03/28/21 17:10 Pharmacy to Dose - Vancomycin 1 dose .XX ONETIME ONE 03/28/21 17:19 CULTURE BLOOD [BC] Stat 03/28/21 17:28 CULTURE BLOOD [BC] Stat
--- NOTE | 2021-03-28 21:29 | PCM.HP.2 ---
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 PAtient reports he had chemotherapy last Saturday and since then has felt ill. He denies any subjective fevers, cough or shortness of breath. He went to [facility] to get a COVID booster vaccine but they turned him away due to his symptoms of dizziness. He called the cancer center who instructed him to report to the ED. In the ED he was noted to be hypotensive which blood pressure improved with fluids. CT scan reported patchy infiltrates. - Related Data Allergies/Adverse Reactions: Allergies Allergy/AdvReac Type Severity Reaction Status Date / Time hydrocodone Allergy Irritabilit Verified 03/28/21 15:41 y morphine Allergy Irritabilit Verified 03/28/21 15:41 y Home Medications: Home Meds Metoprolol Tartrate [Lopressor] 12.5 mg PO BID 07/04/15 [History] Clopidogrel Bisulfate [Plavix] 75 mg PO DAILY 06/29/19 [History] Multivitamin [Multi-Vitamin Daily] 1 tab PO DAILY 06/29/19 [History] [place]-3 Fatty Acids/Fish Oil [Fish Oil 1,200 mg Softgel] 1,200 mg PO BID 06/29/19 [History] Rosuvastatin [Crestor] 20 mg PO BEDTIME 06/29/19 [History] Venlafaxine [Venlafaxine HCl ER] 150 mg PO DAILY 06/29/19 [History] hydroCHLOROthiazide [Hydrochlorothiazide] 25 mg PO DAILY 06/29/19 [History] lisinopriL [Zestril] 10 mg PO DAILY 06/29/19 [History] Apixaban [Eliquis] 5 mg PO BID 11/21/20 [History] Calcium Carbonate [Calcium] 1 tab PO BID 11/21/20 [History] Esomeprazole Magnesium 1 cap PO BID 11/21/20 [History] traMADol [Ultram] 50 mg PO Q6H PRN 11/21/20 [History] dexAMETHasone [Dexamethasone] 4 mg PO BID 03/29/21 [History] Past Medical History HEENT History: Reports: Cataract, Hard of Hearing Other HEENT History: wears glasses, has bilateral hearing aides Cardiovascular History: Reports: CAD, High Cholesterol, Hypertension, Stents Other Cardiovascular History: Heart Stent placed 10/2011, [place], Varicose Vein Stripping Left Respiratory History: Reports: Sleep Apnea Other Respiratory History: has not used a CPAP for many years Gastrointestinal History: Reports: Gastritis, GERD, Hiatal Hernia, Other (See Below) Other Gastrointestinal History: Allen's Esophagus Genitourinary History: Reports: None Musculoskeletal History: Reports: Arthritis, Fracture, Gout, Osteoarthritis Other Musculoskeletal History: hx of fx femur Neurological History: Reports: None Psychiatric History: Reports: Anxiety, Depression Endocrine/Metabolic History: Reports: Obesity/BMI 30+ Hematologic History: Reports: Anticoagulation Therapy, Iron Deficiency Immunologic History: Reports: None Oncologic (Cancer) History: Reports: Other (See Below) Other Oncologic History: Shoulder, Pelvis, Lung CA, Glands in Chest Dermatologic History: Reports: None, Other (See Below) Other Dermatologic History: "itchy legs" - possible dry skin - Infectious Disease History Infectious Disease History: Reports: Chicken Pox, Measles, Mumps Other Infectious Disease History: childhood - Past Surgical History Head Surgeries/Procedures: Reports: None HEENT Surgical History: Reports: Cataract Surgery, None Cardiovascular Surgical History: Reports: Coronary Artery Stent, Varicose Other Cardiovascular Surgeries/Procedures: Angioplasty stent placed- denies chest pain, hx of bilateral varicose vein stripping Respiratory Surgical History: Reports: None GI Surgical History: Reports: Colonoscopy, EGD Other GI Surgeries/Procedures: Esophagus stretching, Radio Frequency Ablation x3 Male Surgical History: Reports: None Endocrine Surgical History: Reports: None Neurological Surgical History: Reports: None Musculoskeletal Surgical History: Reports: Knee Replacement, ORIF Other Musculoskeletal Surgeries/Procedures:: hx of ORIF fx femur- hardware removed, hx of bilateral TKA in Oncologic Surgical History: Reports: None Dermatological Surgical History: Reports: None Social & Family History - Family History Family Medical History: No Pertinent Family History Cardiac: Reports: Other (See Below) Other Cardiac Family History: unknown condition Respiratory: Reports: TB Neurological: Reports: CVA Endocrine/Metabolic: Reports: Obesity/MBI 30+ Oncologic: Reports: Brain - Tobacco Use Tobacco Use Status *Q: Never Tobacco User - Recreational Drug Use Recreational Drug Use: No H&P Review of Systems - Review of Systems: Review Of Systems: Comprehensive ROS is negative, except as noted in HPI. Exam - Exam Exam: See Below - Vital Signs Vital Signs: Last Vital Signs Temp 37.7 C 03/28/21 16:38 Pulse 93 03/28/21 21:01 Resp 18 03/28/21 19:45 BP 107/63 03/28/21 21:01 Pulse Ox 97 03/28/21 21:01 Orthostatic Blood Pressure [ 73/38 Standing] Orthostatic Blood Pressure [ 75/46 Sitting] Orthostatic Blood Pressure [ 79/58 Supine] Weight: 108.862 kg - Exam General: Alert, Oriented HEENT: Mucosa Moist & [place] Lungs: Clear to Auscultation, Normal Respiratory Effort Cardiovascular: Regular Rate, Regular Rhythm GI/Abdominal Exam: Normal Bowel Sounds, Soft, Non-Tender Extremities: Non-Tender, No Pedal Edema Skin: Warm, Dry, Intact Neurological: No: Focal Deficit - Patient Data Lab Results Last 24 hrs: Laboratory Results - last 24 hr 03/28/21 03/28/21 03/28/21 Range/Units 16:30 16:30 16:30 WBC 3.92 L (4.0-11.0) K/uL RBC 3.10 L (4.50-5.90) M/uL Hgb 10.2 L (13.0-17.0) g/dL Hct 29.9 L (38.0-50.0) % MCV 96.5 (80.0-98.0) fL MCH 32.9 H (27.0-32.0) pg MCHC 34.1 (31.0-37.0) g/dL RDW Std Deviation 53.4 (28.0-62.0) fl RDW Coeff of [place] 15 (11.0-15.0) % Plt Count 235 (150-400) K/uL MPV 9.10 (7.40-12.00) fL Neut % (Auto) 81.3 H (48.0-80.0) % Lymph % (Auto) 15.1 L (16.0-40.0) % [place] % (Auto) 2.3 (0.0-15.0) % Eos % (Auto) 1.0 (0.0-7.0) % Baso % (Auto) 0.3 (0.0-1.5) % Neut # (Auto) 3.2 (1.4-5.7) K/uL Lymph # (Auto) 0.6 (0.6-2.4) K/uL [place] # (Auto) 0.1 (0.0-0.8) K/uL Eos # (Auto) 0.0 (0.0-0.7) K/uL Baso # (Auto) 0.0 (0.0-0.1) K/uL Nucleated RBC % 0.0 /100WBC Nucleated RBCs # 0 K/uL INR ABG pH (7.35-7.45) ABG pCO2 (35-45) mmHG ABG pO2 (80-105) mmHG ABG HCO3 (22-26) mEq/L ABG Total CO2 (23-27) mmol/L ABG Base Excess (-2.0-3.0) Sodium 139 (136-148) mmol/L Potassium 3.4 L (3.5-5.1) mmol/L Chloride 104 (98-107) mmol/L Carbon Dioxide 24.2 (21.0-32.0) mmol/L BUN 29 H (7.0-18.0) mg/dL Creatinine 1.4 H (0.8-1.3) mg/dL Est Cr Clr Drug Dosing 55.33 mL/min Estimated GFR (MDRD) 49.5 ml/min Glucose 98 (74-106) mg/dL Lactic Acid (0.4-2.0) mmol/L Calcium 7.6 L (8.5-10.1) mg/dL Phosphorus 2.5 L (2.6-4.7) mg/dL Magnesium 1.6 L (1.8-2.4) mg/dL Total Bilirubin 0.7 (0.2-1.0) mg/dL AST 20 (15-37) IU/L ALT 35 (14-63) IU/L Alkaline Phosphatase 111 (46-116) U/L Troponin I < 0.050 (0.000-0.056) ng/mL B-Natriuretic Peptide (<100) PG/ML Total Protein 6.6 (6.4-8.2) g/dL Albumin 3.0 L (3.4-5.0) g/dL Globulin 3.6 (2.6-4.0) g/dL Albumin/Globulin Ratio 0.8 L (0.9-1.6) TSH, Ultra Sensitive (0.36-3.74) uIU/mL Urine Color Urine Appearance Urine pH (5.0-8.0) Ur Specific [place] (1.001-1.035) Urine Protein (NEGATIVE) mg/dL Urine Glucose (UA) (NEGATIVE) mg/dL Urine Ketones (NEGATIVE) mg/dL Urine Occult Blood (NEGATIVE) Urine Nitrite (NEGATIVE) Urine Bilirubin (NEGATIVE) Urine Urobilinogen (<2.0) EU/dL Ur Leukocyte Esterase (NEGATIVE) Urine RBC (0-2/HPF) Urine WBC (0-5/HPF) Ur Epithelial Cells (NONE-FEW) Amorphous Sediment (NEGATIVE) Urine Bacteria (NEGATIVE) Urine Mucus (NONE-MOD) Influenza Type A RNA NEGATIVE (NEGATIVE) Influenza Type B RNA NEGATIVE (NEGATIVE) SARS-CoV-2 RNA (TREV) NEGATIVE (NEGATIVE) 03/28/21 03/28/21 03/28/21 Range/Units 16:30 16:30 16:30 WBC (4.0-11.0) K/uL RBC (4.50-5.90) M/uL Hgb (13.0-17.0) g/dL Hct (38.0-50.0) % MCV (80.0-98.0) fL MCH (27.0-32.0) pg MCHC (31.0-37.0) g/dL RDW Std Deviation (28.0-62.0) fl RDW Coeff of [place] (11.0-15.0) % Plt Count (150-400) K/uL MPV (7.40-12.00) fL Neut % (Auto) (48.0-80.0) % Lymph % (Auto) (16.0-40.0) % Emm[place] % (Auto) (0.0-15.0) % Eos % (Auto) (0.0-7.0) % Baso % (Auto) (0.0-1.5) % Neut # (Auto) (1.4-5.7) K/uL Lymph # (Auto) (0.6-2.4) K/uL [place] # (Auto) (0.0-0.8) K/uL Eos # (Auto) (0.0-0.7) K/uL Baso # (Auto) (0.0-0.1) K/uL Nucleated RBC % /100WBC Nucleated RBCs # K/uL INR ABG pH (7.35-7.45) ABG pCO2 (35-45) mmHG ABG pO2 (80-105) mmHG ABG HCO3 (22-26) mEq/L ABG Total CO2 (23-27) mmol/L ABG Base Excess (-2.0-3.0) Sodium (136-148) mmol/L Potassium (3.5-5.1) mmol/L Chloride (98-107) mmol/L Carbon Dioxide (21.0-32.0) mmol/L BUN (7.0-18.0) mg/dL Creatinine (0.8-1.3) mg/dL Est Cr Clr Drug Dosing mL/min Estimated GFR (MDRD) ml/min Glucose (74-106) mg/dL Lactic Acid 1.3 (0.4-2.0) mmol/L Calcium (8.5-10.1) mg/dL Phosphorus (2.6-4.7) mg/dL Magnesium (1.8-2.4) mg/dL Total Bilirubin (0.2-1.0) mg/dL AST (15-37) IU/L ALT (14-63) IU/L Alkaline Phosphatase (46-116) U/L Troponin I (0.000-0.056) ng/mL B-Natriuretic Peptide 13 (<100) PG/ML Total Protein (6.4-8.2) g/dL Albumin (3.4-5.0) g/dL Globulin (2.6-4.0) g/dL Albumin/Globulin Ratio (0.9-1.6) TSH, Ultra Sensitive 1.69 (0.36-3.74) uIU/mL Urine Color Urine Appearance Urine pH (5.0-8.0) Ur Specific [place] (1.001-1.035) Urine Protein (NEGATIVE) mg/dL Urine Glucose (UA) (NEGATIVE) mg/dL Urine Ketones (NEGATIVE) mg/dL Urine Occult Blood (NEGATIVE) Urine Nitrite (NEGATIVE) Urine Bilirubin (NEGATIVE) Urine Urobilinogen (<2.0) EU/dL Ur Leukocyte Esterase (NEGATIVE) Urine RBC (0-2/HPF) Urine WBC (0-5/HPF) Ur Epithelial Cells (NONE-FEW) Amorphous Sediment (NEGATIVE) Urine Bacteria (NEGATIVE) Urine Mucus (NONE-MOD) Influenza Type A RNA (NEGATIVE) Influenza Type B RNA (NEGATIVE) SARS-CoV-2 RNA (TREV) (NEGATIVE) 03/28/21 03/28/21 03/28/21 Range/Units 16:30 16:50 18:10 WBC (4.0-11.0) K/uL RBC (4.50-5.90) M/uL Hgb (13.0-17.0) g/dL Hct (38.0-50.0) % MCV (80.0-98.0) fL MCH (27.0-32.0) pg MCHC (31.0-37.0) g/dL RDW Std Deviation (28.0-62.0) fl RDW Coeff of [place] (11.0-15.0) % Plt Count (150-400) K/uL MPV (7.40-12.00) fL Neut % (Auto) (48.0-80.0) % Lymph % (Auto) (16.0-40.0) % [place] % (Auto) (0.0-15.0) % Eos % (Auto) (0.0-7.0) % Baso % (Auto) (0.0-1.5) % Neut # (Auto) (1.4-5.7) K/uL Lymph # (Auto) (0.6-2.4) K/uL [place] # (Auto) (0.0-0.8) K/uL Eos # (Auto) (0.0-0.7) K/uL Baso # (Auto) (0.0-0.1) K/uL Nucleated RBC % /100WBC Nucleated RBCs # K/uL INR 1.07 ABG pH 7.38 (7.35-7.45) ABG pCO2 34 L (35-45) mmHG ABG pO2 72 L (80-105) mmHG ABG HCO3 20 L (22-26) mEq/L ABG Total CO2 18.0 L (23-27) mmol/L ABG Base Excess -4.4 L (-2.0-3.0) Sodium (136-148) mmol/L Potassium (3.5-5.1) mmol/L Chloride (98-107) mmol/L Carbon Dioxide (21.0-32.0) mmol/L BUN (7.0-18.0) mg/dL Creatinine (0.8-1.3) mg/dL Est Cr Clr Drug Dosing mL/min Estimated GFR (MDRD) ml/min Glucose (74-106) mg/dL Lactic Acid (0.4-2.0) mmol/L Calcium (8.5-10.1) mg/dL Phosphorus (2.6-4.7) mg/dL Magnesium (1.8-2.4) mg/dL Total Bilirubin (0.2-1.0) mg/dL AST (15-37) IU/L ALT (14-63) IU/L Alkaline Phosphatase (46-116) U/L Troponin I (0.000-0.056) ng/mL B-Natriuretic Peptide (<100) PG/ML Total Protein (6.4-8.2) g/dL Albumin (3.4-5.0) g/dL Globulin (2.6-4.0) g/dL Albumin/Globulin Ratio (0.9-1.6) TSH, Ultra Sensitive (0.36-3.74) uIU/mL Urine Color YELLOW Urine Appearance CLEAR Urine pH 6.5 (5.0-8.0) Ur Specific [place] 1.020 (1.001-1.035) Urine Protein TRACE H (NEGATIVE) mg/dL Urine Glucose (UA) NEGATIVE (NEGATIVE) mg/dL Urine Ketones NEGATIVE (NEGATIVE) mg/dL Urine Occult Blood NEGATIVE (NEGATIVE) Urine Nitrite NEGATIVE (NEGATIVE) Urine Bilirubin NEGATIVE (NEGATIVE) Urine Urobilinogen 1.0 (<2.0) EU/dL Ur Leukocyte Esterase NEGATIVE (NEGATIVE) Urine RBC 0-2 (0-2/HPF) Urine WBC 2-4 (0-5/HPF) Ur Epithelial Cells OCCASIONAL (NONE-FEW) Amorphous Sediment LIGHT (NEGATIVE) Urine Bacteria FEW (NEGATIVE) Urine Mucus LIGHT (NONE-MOD) Influenza Type A RNA (NEGATIVE) Influenza Type B RNA (NEGATIVE) SARS-CoV-2 RNA (TREV) (NEGATIVE) Result Diagrams: 03/29/21 07:03 03/29/21 07:03 Sepsis Event Note - Evaluation Sepsis Screening Result: No Definite Risk - Focused Exam Vital Signs: Vital Signs Temp Temp Pulse Resp BP Pulse Ox 03/28/21 21:01 93 107/63 97 03/28/21 19:45 91 18 129/74 95 03/28/21 19:15 81 18 114/61 97 03/28/21 18:15 98 18 112/71 96 03/28/21 17:23 92 91/51 L 97 03/28/21 17:13 995 H 91/53 L 93 L 03/28/21 16:38 37.7 C 03/28/21 16:06 96/55 L 03/28/21 15:43 36.9 C 99 16 88/81 L 96 - Problem List (1) Community acquired pneumonia SNOMED Code(s): 118399845 ICD Code: J18.9 - PNEUMONIA, UNSPECIFIED ORGANISM Status: Acute Current Visit: Yes Qualifiers: Laterality: right Lung location: upper lobe of lung Qualified Code(s): J18.9 - Pneumonia, unspecified organism (2) Immunocompromised SNOMED Code(s): 484785397 ICD Code: D84.9 - IMMUNODEFICIENCY, UNSPECIFIED Status: Acute Current Visit: Yes (3) Sepsis SNOMED Code(s): 40220966 ICD Code: A41.9 - SEPSIS, UNSPECIFIED ORGANISM Status: Acute Current Visit: Yes Qualifiers: Sepsis type: sepsis due to unspecified organism Sepsis acute organ dysfunction status: unspecified Qualified Code(s): A41.9 - Sepsis, unspecified organism (4) Stage 4 lung cancer SNOMED Code(s): 70993200, 58688600 ICD Code: C34.90 - MALIGNANT NEOPLASM OF UNSP PART OF UNSP BRONCHUS OR LUNG Status: Acute Current Visit: Yes Qualifiers: Laterality: right Qualified Code(s): C34.91 - Malignant neoplasm of unspecified part of right bronchus or lung (5) CAD (coronary artery disease) SNOMED Code(s): 58548608 ICD Code: I25.10 - ATHSCL HEART DISEASE OF [place] CORONARY ARTERY W/O ANG PCTRS Status: Chronic Current Visit: No Qualifiers: Coronary Disease-Associated Artery/Lesion type: [place] artery [place] vs. transplanted heart: [place] heart Associated angina: without angina Qualified Code(s): I25.10 - Atherosclerotic heart disease of [place] coronary artery without angina pectoris Problem List Initiated/Reviewed/Updated: Yes Orders Last 24hrs: Active Orders 24 hr Category Date Time Status Admission Status [Patient Status] [ADT] Stat ADT 03/28/21 21:16 Active Cardiac Monitoring [RC] . DIRECTED Care 03/28/21 16:01 Active Orthostatic Vital Signs [RC] ASDIRECTED Care 03/28/21 16:24 Active Oxygen Therapy [RC] PRN Care 03/28/21 21:21 Ordered Up ad Bri [RC] ASDIRECTED Care 03/28/21 21:21 Ordered VTE/DVT Education [RC] PER UNIT ROUTINE Care 03/28/21 21:21 Ordered Vital Signs [RC] Q4H Care 03/28/21 21:21 Ordered Regular Diet [DIET] Diet 03/28/21 Breakfast Ordered CBC WITH AUTO DIFF [HEME] AM Lab 03/29/21 05:11 Ordered COMPREHENSIVE METABOLIC PN,CMP [CHEM] AM Lab 03/29/21 05:11 Ordered CULTURE BLOOD [BC] Stat Lab 03/28/21 17:19 Received CULTURE BLOOD [BC] Stat Lab 03/28/21 17:28 Received CULTURE URINE [MREF] Stat Lab 03/28/21 16:50 Received VANCOMYCIN TROUGH [CHEM] Timed Lab 03/30/21 07:30 Ordered Apixaban [Eliquis] Med 03/28/21 21:00 Active 5 mg PO BID Azithromycin [Zithromax] Med 03/28/21 21:00 Active 500 mg IV Q24H Clopidogrel [Plavix] Med 03/29/21 09:00 Active 75 mg PO DAILY Esomeprazole Magnesium [Esomeprazole Magnesium] Med 03/28/21 21:00 Active 1 cap PO BID Pharmacy to Dose - Vancomycin Med 03/28/21 17:10 Pending 1 dose .XX ONETIME ONE Piperacillin/Tazobactam [Piperacil-Tazobact] 3.375 gm Med 03/28/21 21:00 Active Sodium Chloride 0.9% [Normal Saline AdvBag] 50 ml IV Q6H Rosuvastatin [Crestor] Med 03/29/21 09:00 Active 20 mg PO DAILY Sodium Chloride 0.9% [Normal Saline] 1,000 ml Med 03/28/21 17:27 Active IV STAT Sodium Chloride 0.9% [Saline Flush] Med 03/28/21 16:01 Active 10 ml FLUSH ASDIRECTED PRN Sodium Chloride 0.9% [Saline Flush] Med 03/28/21 16:01 Active 2.5 ml FLUSH ASDIRECTED PRN Vancomycin 1.25 gm Med 03/29/21 08:00 Active Sodium Chloride 0.9% [Normal Saline AdvBag] 250 ml IV Q12H Venlafaxine Med 03/29/21 09:00 Active 150 mg PO DAILY traMADol [Ultram] Med 03/28/21 21:00 Active 50 mg PO Q12HR Blood Culture x2 Reflex Set [OM.PC] Stat Oth 03/28/21 17:09 Ordered Saline Lock Insert [OM.PC] Stat Oth 03/28/21 16:01 Ordered Resuscitation Status Routine Resus Stat 03/28/21 21:21 Ordered Medication Orders Apixaban (Apixaban 5 Mg Tab) 5 mg PO BID [facility] Azithromycin (Azithromycin 500 Mg Vial) 500 mg IV Q24H [facility] Clopidogrel Bisulfate (Clopidogrel 75 Mg Tab) 75 mg PO DAILY [facility] Sodium Chloride (Normal Saline) 1,000 mls @ 250 mls/hr IV STAT ONE Stop: 03/28/21 21:26 Last Admin: 03/28/21 20:00 Dose: 250 mls/hr Documented by: LEWILAC Vancomycin HCl 1.25 gm/ Sodium (Chloride) 250 mls @ 166.667 mls/hr IV Q12H [facility] Piperacillin Sod/Tazobactam (Sod 3.375 gm/ Sodium Chloride) 50 mls @ 100 mls/hr IV Q6H [facility] Non-Formulary Medication (Esomeprazole Magnesium [Esomeprazole Magnesium]) 1 cap PO BID [facility] Non-Formulary Medication (Venlafaxine) 150 mg PO DAILY [facility] Rosuvastatin Calcium (Rosuvastatin 10 Mg Tab) 20 mg PO DAILY [facility] Sodium Chloride (Sodium Chloride 0.9% 10 Ml Syringe) 10 ml FLUSH ASDIRECTED PRN PRN Reason: Keep Vein Open Sodium Chloride (Sodium Chloride 0.9% 2.5 Ml Syringe) 2.5 ml FLUSH ASDIRECTED PRN PRN Reason: Keep Vein Open Tramadol HCl (Tramadol 50 Mg Tab) 50 mg PO Q12HR [facility] Vancomycin HCl (Pharmacy To Dose - Vancomycin) 1 dose .XX ONETIME ONE Stop: 03/28/21 17:11 Assessment/Plan Comment:: 75 yo male admitted for sepsis from pneumonia vs dehydration from chemotherapy. Will monitor in ICU due to low blood pressures Pneumonia: on broad spectrum antibiotics, cultures pending Hx of DVT:on eliquis
[2021-03-28] MEDS: traMADol 50 MG Tab PO SCH (21:44)
[2021-03-28] MEDS ORDERED: Sodium Chloride 0.9% 250 ML ONE (22:52)
[2021-03-28] MEDS: Apixaban 5 MG Tab PO SCH (22:54)
--- NOTE | 2021-03-28 23:22 | PN ---
[facility] Physician - Brief Progress [id number]/16/2021 23:11[facility] [place] - BECKN ([place]) - MWN COR[place]ON WATSONDate of Service 03/28/2021 23:11HPI/Events of Note eICU admission noteActive problems:1. Sepsis secondary to healthcare associated pneumonia2. Acute hypoxemic respiratory failure3. Metastatic lung adenocarcinoma on chemotherapy4. Coronary ar omar disease5. History of DVT on EliquisHPI:History obtained from revision of medical records and di scussion with ROSE MARIE Penaloza.75-year-old male with metastatic lung cancer on chemotherapy presented feelin g tired/dizziness and shortness of breath. He recently received chemotherapy. WBC 3.4. CTA chest s howed no PE but patchy pulmonary infiltrates. Lactate 1.3. Creatinine 1.4. Patient received 30 cc/ kg fluid resuscitation in ER. Blood culture obtained, urine culture. Started on broad-spectrum anti biotics vancomycin, Zosyn and azithromycin. Currently hemodynamically stable. Oxygen saturation 95% on room air. Influenza and COVID-19 PCR negativePatient was evaluated by E care,Awake, no acute dis tressVitals: T 37.7 xC, BP 116/59, P 95/min, RR 18/min, SPO2 95% on room airChart, labs and images re viewedeICU recommendations:-Continue current treatment plan as per primary hospital medicine team: Br oad-spectrum antibiotics, follow culture results, fluid resuscitation completed, monitor electrolytes urine output, bronchodilators, continue Eliquis-Thank you for allowing us to participate in the care of your patient.Interventions Major-Infection - evaluation and management, Respiratory failure - liss luation and management, Sepsis - evaluation and management
[2021-03-29] MEDS: Piperacillin/Tazobactam 3.375 GM in Sodium Chloride 0.9% 50 ML IV SCH ×4 (00:09→16:45)
[2021-03-29] MEDS ORDERED: Lactated Ringers 500 ML IV ONE (01:37)
[2021-03-29] MEDS: Sodium Chloride 0.9% 1,000 ML IV SCH ×2 (04:16→15:12)
[2021-03-29] MEDS ORDERED: Omeprazole 20 MG Cap.CR PO SCH (07:30)
[2021-03-29 08:13] LABS: CARBON DIOXIDE,CO2 21.4 mmol/L (21.0-32.0); POTASSIUM,K 3.5 mmol/L (3.5-5.1)
[2021-03-29] MEDS: Venlafaxine 75 MG Cap.ER PO SCH (08:20)
[2021-03-29] MEDS: Clopidogrel 75 MG Tab PO SCH (08:20)
[2021-03-29] MEDS: traMADol 50 MG Tab PO SCH ×2 (08:21→21:29)
[2021-03-29] MEDS: Pantoprazole 40 MG Tab.CR PO SCH ×2 (08:21→16:14)
[2021-03-29] MEDS: Apixaban 5 MG Tab PO SCH ×2 (08:21→21:29)
[2021-03-29] MEDS ORDERED: Magnesium Sulfate (4.06 MEQ/ML) 5 GM/10 ML SDV IV ONE (14:30)
--- NOTE | 2021-03-29 14:35 | PN ---
[facility] Physician - Brief Progress [id number]/17/2021 14:34[facility] Bernadine cruz [place] - OTIS ([place]) - COR[place]ON MARINELLIDate of Service 03/29/2021 14:34HPI/Events of Note eICU Update NoteMagnesium replacement orderedInterventions Major-Electrolyte abnormality - ev aluation and management
[2021-03-29] MEDS ORDERED: Magnesium Sulfate/Water 2 GM in Premix Bag 1 BAG IV ONE (14:45)
--- NOTE | 2021-03-29 18:20 | PCM.PN ---
- General Info Date of Service: 03/29/21 - Review of Systems Systems Review Comment:: feeling better, dizziness has resolved - Patient Data Vitals - Most Recent: Last Vital Signs Temp 36.1 C 03/29/21 16:00 Pulse 95 03/28/21 22:02 Resp 15 03/29/21 16:00 BP 131/67 03/29/21 16:00 Pulse Ox 99 03/29/21 16:00 Orthostatic Blood Pressure [ 73/38 Standing] Orthostatic Blood Pressure [ 75/46 Sitting] Orthostatic Blood Pressure [ 79/58 Supine] Weight - Most Recent: 112.037 kg I&O - Last 24 Hours: Intake & Output 03/29/21 03/29/21 03/29/21 06:59 14:59 22:59 Intake Total 2024 1500 500 Output Total 1400 1700 800 Balance 624 -200 -300 Lab Results Last 24 Hours: Laboratory Results - last 24 hr 03/28/21 03/29/21 03/29/21 Range/Units 16:30 07:03 07:03 WBC 1.84 L (4.0-11.0) K/uL RBC 2.64 L (4.50-5.90) M/uL Hgb 8.6 L (13.0-17.0) g/dL Hct 25.9 L (38.0-50.0) % MCV 98.1 H (80.0-98.0) fL MCH 32.6 H (27.0-32.0) pg MCHC 33.2 (31.0-37.0) g/dL RDW Std Deviation 53.7 (28.0-62.0) fl RDW Coeff of [place] 15 (11.0-15.0) % Plt Count 179 (150-400) K/uL MPV 9.20 (7.40-12.00) fL Add Manual Diff YES Neutrophils % (Manual) 72 (48.0-80.0) % Lymphocytes % (Manual) 21 (16.0-40.0) % Monocytes % (Manual) 2 (0.0-15.0) % Eosinophils % (Manual) 4 (0.0-7.0) % Basophils % (Manual) 1 (0.0-1.5) % Nucleated RBC % 0.0 /100WBC Absolute Seg Neuts 1.3 L (1.4-5.7) Lymphocytes # (Manual) 0.4 L (0.6-2.4) Monocytes # (Manual) 0.0 (0.0-0.8) Eosinophils # (Manual) 0.1 (0.0-0.7) Basophils # (Manual) 0.0 (0.0-0.1) Nucleated RBCs # 0 K/uL Sodium 141 (136-148) mmol/L Potassium 3.5 (3.5-5.1) mmol/L Chloride 110 H (98-107) mmol/L Carbon Dioxide 21.4 (21.0-32.0) mmol/L BUN 21 H (7.0-18.0) mg/dL Creatinine 1.2 (0.8-1.3) mg/dL Est Cr Clr Drug Dosing 64.55 mL/min Estimated GFR (MDRD) 59.2 ml/min Glucose 99 (74-106) mg/dL Calcium 7.5 L (8.5-10.1) mg/dL Magnesium (1.8-2.4) mg/dL Total Bilirubin 0.5 (0.2-1.0) mg/dL AST 16 (15-37) IU/L ALT 33 (14-63) IU/L Alkaline Phosphatase 83 (46-116) U/L B-Natriuretic Peptide 13 (<100) PG/ML Total Protein 5.7 L (6.4-8.2) g/dL Albumin 2.4 L (3.4-5.0) g/dL Globulin 3.3 (2.6-4.0) g/dL Albumin/Globulin Ratio 0.7 L (0.9-1.6) 03/29/21 Range/Units 07:03 WBC (4.0-11.0) K/uL RBC (4.50-5.90) M/uL Hgb (13.0-17.0) g/dL Hct (38.0-50.0) % MCV (80.0-98.0) fL MCH (27.0-32.0) pg MCHC (31.0-37.0) g/dL RDW Std Deviation (28.0-62.0) fl RDW Coeff of [place] (11.0-15.0) % Plt Count (150-400) K/uL MPV (7.40-12.00) fL Add Manual Diff Neutrophils % (Manual) (48.0-80.0) % Lymphocytes % (Manual) (16.0-40.0) % Monocytes % (Manual) (0.0-15.0) % Eosinophils % (Manual) (0.0-7.0) % Basophils % (Manual) (0.0-1.5) % Nucleated RBC % /100WBC Absolute Seg Neuts (1.4-5.7) Lymphocytes # (Manual) (0.6-2.4) Monocytes # (Manual) (0.0-0.8) Eosinophils # (Manual) (0.0-0.7) Basophils # (Manual) (0.0-0.1) Nucleated RBCs # K/uL Sodium (136-148) mmol/L Potassium (3.5-5.1) mmol/L Chloride (98-107) mmol/L Carbon Dioxide (21.0-32.0) mmol/L BUN (7.0-18.0) mg/dL Creatinine (0.8-1.3) mg/dL Est Cr Clr Drug Dosing mL/min Estimated GFR (MDRD) ml/min Glucose (74-106) mg/dL Calcium (8.5-10.1) mg/dL Magnesium 1.4 L (1.8-2.4) mg/dL Total Bilirubin (0.2-1.0) mg/dL AST (15-37) IU/L ALT (14-63) IU/L Alkaline Phosphatase (46-116) U/L B-Natriuretic Peptide (<100) PG/ML Total Protein (6.4-8.2) g/dL Albumin (3.4-5.0) g/dL Globulin (2.6-4.0) g/dL Albumin/Globulin Ratio (0.9-1.6) Jimenez Results Last 24 Hours: Microbiology 03/28/21 17:28 Aerobic Blood Culture - Preliminary Blood - Venous - Lab Draw NO GROWTH AFTER 1 DAY Anaerobic Blood Culture - Preliminary NO GROWTH AFTER 1 DAY 03/28/21 17:19 Aerobic Blood Culture - Preliminary Blood - Venous NO GROWTH AFTER 1 DAY Anaerobic Blood Culture - Preliminary NO GROWTH AFTER 1 DAY Med Orders - Current: Current Medications Apixaban (Apixaban 5 Mg Tab) 5 mg PO BID [facility] Last Admin: 03/29/21 08:21 Dose: 5 mg Documented by: Clopidogrel Bisulfate (Clopidogrel 75 Mg Tab) 75 mg PO DAILY [facility] Last Admin: 03/29/21 08:20 Dose: 75 mg Documented by: Vancomycin HCl 1.25 gm/ Sodium (Chloride) 250 mls @ 166.667 mls/hr IV Q12H [facility] Last Admin: 03/29/21 07:38 Dose: 166.667 mls/hr Documented by: Piperacillin Sod/Tazobactam (Sod 3.375 gm/ Sodium Chloride) 50 mls @ 100 mls/hr IV Q6H [facility] Last Admin: 03/29/21 16:45 Dose: 100 mls/hr Documented by: Sodium Chloride (Normal Saline) 1,000 mls @ 100 mls/hr IV ASDIRECTED [facility] Last Admin: 03/29/21 15:12 Dose: 100 mls/hr Documented by: Azithromycin 500 mg/ Sodium (Chloride) 250 mls @ 250 mls/hr IV Q24H [facility] Pantoprazole Sodium (Pantoprazole 40 Mg Tab.Cr) 40 mg PO BIDAC [facility] Last Admin: 03/29/21 16:14 Dose: 40 mg Documented by: Rosuvastatin Calcium (Rosuvastatin 10 Mg Tab) 20 mg PO BEDTIME [facility] Sodium Chloride (Sodium Chloride 0.9% 10 Ml Syringe) 10 ml FLUSH ASDIRECTED PRN PRN Reason: Keep Vein Open Sodium Chloride (Sodium Chloride 0.9% 2.5 Ml Syringe) 2.5 ml FLUSH ASDIRECTED PRN PRN Reason: Keep Vein Open Tramadol HCl (Tramadol 50 Mg Tab) 50 mg PO Q12HR [facility] Last Admin: 03/29/21 08:21 Dose: 50 mg Documented by: Venlafaxine HCl (Venlafaxine 75 Mg Cap.Er) 150 mg PO DAILY [facility] Last Admin: 03/29/21 08:20 Dose: 150 mg Documented by: Discontinued Medications Azithromycin (Azithromycin 500 Mg Vial) 500 mg IV Q24H [facility] Last Admin: 03/28/21 22:54 Dose: 500 mg Documented by: Sodium Chloride (Normal Saline) 1,000 mls @ 999 mls/hr IV STAT ONE Stop: 03/28/21 17:14 Last Admin: 03/28/21 16:53 Dose: 999 mls/hr Documented by: Piperacillin Sod/Tazobactam (Sod 3.375 gm/ Sodium Chloride) 50 mls @ 100 mls/hr IV ONETIME ONE Stop: 03/28/21 17:39 Last Admin: 03/28/21 17:45 Dose: 100 mls/hr Documented by: Sodium Chloride (Normal Saline) 1,000 mls @ 999 mls/hr IV STAT ONE Stop: 03/28/21 18:15 Last Admin: 03/28/21 17:45 Dose: 999 mls/hr Documented by: Sodium Chloride (Normal Saline) 1,000 mls @ 999 mls/hr IV STAT ONE Stop: 03/28/21 18:24 Last Admin: 03/28/21 17:46 Dose: 999 mls/hr Documented by: Sodium Chloride (Normal Saline) 1,000 mls @ 999 mls/hr IV STAT ONE Stop: 03/28/21 18:26 Last Admin: 03/28/21 19:37 Dose: 999 mls/hr Documented by: Sodium Chloride (Normal Saline) 1,000 mls @ 250 mls/hr IV STAT ONE Stop: 03/28/21 21:26 Last Admin: 03/28/21 20:00 Dose: 250 mls/hr Documented by: Vancomycin HCl 2 gm/ Premix 400 mls @ 200 mls/hr IV STAT ONE Stop: 03/28/21 21:14 Last Admin: 03/28/21 20:27 Dose: 200 mls/hr Documented by: Piperacillin Sod/Tazobactam (Sod 3.375 gm/ Sodium Chloride) 50 mls @ 100 mls/hr IV Q6H [facility] Last Admin: 03/28/21 23:01 Dose: Not Given Documented by: Sodium Chloride (Normal Saline Advbag) Confirm Administered Dose 250 mls @ as directed .ROUTE .STK-MED ONE Stop: 03/28/21 22:53 Last Admin: 03/28/21 22:59 Dose: 250 mls/hr Documented by: Lactated Ringer's (Ringers, Lactated) 500 mls @ 500 mls/hr IV .BOLUS ONE Stop: 03/29/21 02:36 Last Admin: 03/29/21 01:42 Dose: 500 mls/hr Documented by: Magnesium Sulfate 2 gm/ Premix 50 mls @ 50 mls/hr IV ONETIME ONE Stop: 03/29/21 15:44 Last Admin: 03/29/21 14:52 Dose: 50 mls/hr Documented by: Iopamidol (Iopamidol 755 Mg/Ml 500 Ml Multipack Bottle) 100 ml IVPUSH ONETIME STA Stop: 03/28/21 18:58 Last Admin: 03/28/21 22:59 Dose: Not Given Documented by: Non-Formulary Medication (Esomeprazole Magnesium [Esomeprazole Magnesium]) 1 cap PO BID [facility] Last Admin: 03/28/21 22:59 Dose: Not Given Documented by: Omeprazole (Omeprazole 20 Mg Cap.Cr) 20 mg PO BIDAC [facility] Vancomycin HCl (Pharmacy To Dose - Vancomycin) 1 dose .XX ONETIME ONE Stop: 03/28/21 17:11 Vancomycin HCl (Pharmacy To Dose - Vancomycin) 1 dose .XX ASDIRECTED [facility] - Exam General: Alert, Oriented Neck: Supple Lungs: Clear to Auscultation, Normal Respiratory Effort Cardiovascular: Regular Rate, Regular Rhythm GI/Abdominal Exam: Normal Bowel Sounds, Soft, Non-Tender Extremities: Non-Tender, No Pedal Edema Skin: Warm, Dry, Intact Neurological: No New Focal Deficit - Patient Data Lab Results Last 24 hrs: Laboratory Results - last 24 hr 03/28/21 03/29/21 03/29/21 Range/Units 16:30 07:03 07:03 WBC 1.84 L (4.0-11.0) K/uL RBC 2.64 L (4.50-5.90) M/uL Hgb 8.6 L (13.0-17.0) g/dL Hct 25.9 L (38.0-50.0) % MCV 98.1 H (80.0-98.0) fL MCH 32.6 H (27.0-32.0) pg MCHC 33.2 (31.0-37.0) g/dL RDW Std Deviation 53.7 (28.0-62.0) fl RDW Coeff of [place] 15 (11.0-15.0) % Plt Count 179 (150-400) K/uL MPV 9.20 (7.40-12.00) fL Add Manual Diff YES Neutrophils % (Manual) 72 (48.0-80.0) % Lymphocytes % (Manual) 21 (16.0-40.0) % Monocytes % (Manual) 2 (0.0-15.0) % Eosinophils % (Manual) 4 (0.0-7.0) % Basophils % (Manual) 1 (0.0-1.5) % Nucleated RBC % 0.0 /100WBC Absolute Seg Neuts 1.3 L (1.4-5.7) Lymphocytes # (Manual) 0.4 L (0.6-2.4) Monocytes # (Manual) 0.0 (0.0-0.8) Eosinophils # (Manual) 0.1 (0.0-0.7) Basophils # (Manual) 0.0 (0.0-0.1) Nucleated RBCs # 0 K/uL Sodium 141 (136-148) mmol/L Potassium 3.5 (3.5-5.1) mmol/L Chloride 110 H (98-107) mmol/L Carbon Dioxide 21.4 (21.0-32.0) mmol/L BUN 21 H (7.0-18.0) mg/dL Creatinine 1.2 (0.8-1.3) mg/dL Est Cr Clr Drug Dosing 64.55 mL/min Estimated GFR (MDRD) 59.2 ml/min Glucose 99 (74-106) mg/dL Calcium 7.5 L (8.5-10.1) mg/dL Magnesium (1.8-2.4) mg/dL Total Bilirubin 0.5 (0.2-1.0) mg/dL AST 16 (15-37) IU/L ALT 33 (14-63) IU/L Alkaline Phosphatase 83 (46-116) U/L B-Natriuretic Peptide 13 (<100) PG/ML Total Protein 5.7 L (6.4-8.2) g/dL Albumin 2.4 L (3.4-5.0) g/dL Globulin 3.3 (2.6-4.0) g/dL Albumin/Globulin Ratio 0.7 L (0.9-1.6) 03/29/21 Range/Units 07:03 WBC (4.0-11.0) K/uL RBC (4.50-5.90) M/uL Hgb (13.0-17.0) g/dL Hct (38.0-50.0) % MCV (80.0-98.0) fL MCH (27.0-32.0) pg MCHC (31.0-37.0) g/dL RDW Std Deviation (28.0-62.0) fl RDW Coeff of [place] (11.0-15.0) % Plt Count (150-400) K/uL MPV (7.40-12.00) fL Add Manual Diff Neutrophils % (Manual) (48.0-80.0) % Lymphocytes % (Manual) (16.0-40.0) % Monocytes % (Manual) (0.0-15.0) % Eosinophils % (Manual) (0.0-7.0) % Basophils % (Manual) (0.0-1.5) % Nucleated RBC % /100WBC Absolute Seg Neuts (1.4-5.7) Lymphocytes # (Manual) (0.6-2.4) Monocytes # (Manual) (0.0-0.8) Eosinophils # (Manual) (0.0-0.7) Basophils # (Manual) (0.0-0.1) Nucleated RBCs # K/uL Sodium (136-148) mmol/L Potassium (3.5-5.1) mmol/L Chloride (98-107) mmol/L Carbon Dioxide (21.0-32.0) mmol/L BUN (7.0-18.0) mg/dL Creatinine (0.8-1.3) mg/dL Est Cr Clr Drug Dosing mL/min Estimated GFR (MDRD) ml/min Glucose (74-106) mg/dL Calcium (8.5-10.1) mg/dL Magnesium 1.4 L (1.8-2.4) mg/dL Total Bilirubin (0.2-1.0) mg/dL AST (15-37) IU/L ALT (14-63) IU/L Alkaline Phosphatase (46-116) U/L B-Natriuretic Peptide (<100) PG/ML Total Protein (6.4-8.2) g/dL Albumin (3.4-5.0) g/dL Globulin (2.6-4.0) g/dL Albumin/Globulin Ratio (0.9-1.6) Result Diagrams: 03/29/21 07:03 03/29/21 07:03 Jimenez Results Last 24 hrs: Microbiology 03/28/21 17:28 Aerobic Blood Culture - Preliminary Blood - Venous - Lab Draw NO GROWTH AFTER 1 DAY Anaerobic Blood Culture - Preliminary NO GROWTH AFTER 1 DAY 03/28/21 17:19 Aerobic Blood Culture - Preliminary Blood - Venous NO GROWTH AFTER 1 DAY Anaerobic Blood Culture - Preliminary NO GROWTH AFTER 1 DAY Sepsis Event Note - Evaluation Sepsis Screening Result: No Definite Risk - Focused Exam Vital Signs: Vital Signs Temp Resp BP Pulse Ox 03/29/21 16:00 36.1 C 15 131/67 99 03/29/21 15:00 14 98 03/29/21 14:00 13 102/63 97 03/29/21 13:00 19 117/57 L 96 03/29/21 12:00 36.5 C 20 124/62 97 03/29/21 11:00 14 118/71 99 03/29/21 10:00 15 113/74 97 03/29/21 09:00 15 123/55 L 97 03/29/21 08:00 36.9 C 18 110/63 99 03/29/21 07:00 18 119/67 97 - Problem List & Annotations (1) Community acquired pneumonia SNOMED Code(s): 695775122 Code(s): J18.9 - PNEUMONIA, UNSPECIFIED ORGANISM Status: Acute Current Visit: Yes Qualifiers: Laterality: right Lung location: upper lobe of lung Qualified Code(s): J18.9 - Pneumonia, unspecified organism (2) Immunocompromised SNOMED Code(s): 925137278 Code(s): D84.9 - IMMUNODEFICIENCY, UNSPECIFIED Status: Acute Current Visit: Yes (3) Sepsis SNOMED Code(s): 61010699 Code(s): A41.9 - SEPSIS, UNSPECIFIED ORGANISM Status: Acute Current Visit: Yes Qualifiers: Sepsis type: sepsis due to unspecified organism Sepsis acute organ dysfunction status: unspecified Qualified Code(s): A41.9 - Sepsis, unspecified organism (4) Stage 4 lung cancer SNOMED Code(s): 69185295, 33844069 Code(s): C34.90 - MALIGNANT NEOPLASM OF UNSP PART OF UNSP BRONCHUS OR LUNG Status: Acute Current Visit: Yes Qualifiers: Laterality: right Qualified Code(s): C34.91 - Malignant neoplasm of unspecified part of right bronchus or lung (5) CAD (coronary artery disease) SNOMED Code(s): 76135618 Code(s): I25.10 - ATHSCL HEART DISEASE OF [place] CORONARY ARTERY W/O ANG PCTRS Status: Chronic Current Visit: No Qualifiers: Coronary Disease-Associated Artery/Lesion type: [place] artery [place] vs. transplanted heart: [place] heart Associated angina: without angina Qualified Code(s): I25.10 - Atherosclerotic heart disease of [place] coronary artery without angina pectoris - Problem List Review Problem List Initiated/Reviewed/Updated: Yes - My Orders Last 24 Hours: My Active Orders 03/28/21 21:00 Apixaban [Eliquis] 5 mg PO BID traMADol [Ultram] 50 mg PO Q12HR 03/28/21 21:21 Oxygen Therapy [RC] PRN Up ad Bri [RC] ASDIRECTED VTE/DVT Education [RC] PER UNIT ROUTINE Vital Signs [RC] Q1H Resuscitation Status Routine 03/28/21 23:45 Piperacillin/Tazobactam [Piperacil-Tazobact] 3.375 gm Sodium Chloride 0.9% [Normal Saline AdvBag] 50 ml IV Q6H 03/29/21 07:30 Pantoprazole [ProTONIX] 40 mg PO BIDAC 03/29/21 09:00 Clopidogrel [Plavix] 75 mg PO DAILY Venlafaxine [Effexor XR] 150 mg PO DAILY 03/29/21 16:12 Transfer Patient (Change bed) [ADT] Routine 03/29/21 21:00 Azithromycin [Zithromax] 500 mg Sodium Chloride 0.9% [Normal Saline AdvBag] 250 ml IV Q24H Rosuvastatin [Crestor] 20 mg PO BEDTIME - Plan Plan:: 75 yo male admitted for sepsis from pneumonia vs dehydration from chemotherapy. Pneumonia: on broad spectrum antibiotics, cultures pending, doing better so will transfer out of ICU to regular floor. Hx of DVT:on Eliquis
[2021-03-29] MEDS: Rosuvastatin 10 MG Tab PO SCH (21:31)
[2021-03-29] MEDS: Azithromycin 500 MG in Sodium Chloride 0.9% 250 ML IV SCH (23:12)
[2021-03-30] MEDS: Piperacillin/Tazobactam 3.375 GM in Sodium Chloride 0.9% 50 ML IV SCH ×4 (00:30→18:08)
[2021-03-30] MEDS: Sodium Chloride 0.9% 1,000 ML IV SCH (02:33)
[2021-03-30] MEDS: Pantoprazole 40 MG Tab.CR PO SCH ×2 (06:50→18:08)
[2021-03-30 08:41] LABS: BLOOD UREA NITROGEN,BUN 14 mg/dL (7.0-18.0); CARBON DIOXIDE,CO2 22.4 mmol/L (21.0-32.0); CHLORIDE,CL 108 mmol/L (98-107); GLUCOSE RANDOM 128 mg/dL (74-106); POTASSIUM,K 2.8 mmol/L (3.5-5.1); SODIUM,NA 143 mmol/L (136-148)
[2021-03-30] MEDS: traMADol 50 MG Tab PO SCH ×2 (09:10→21:49)
[2021-03-30] MEDS: Clopidogrel 75 MG Tab PO SCH (09:10)
[2021-03-30] MEDS: Apixaban 5 MG Tab PO SCH ×2 (09:10→21:49)
[2021-03-30] MEDS: Venlafaxine 75 MG Cap.ER PO SCH (09:12)
[2021-03-30] MEDS ORDERED: Potassium Chloride 20 MEQ Tab.ER PO ONE ×2 (09:56→13:17)
[2021-03-30] MEDS ORDERED: Magnesium Sulfate/Water 2 GM/50 ML Premix Bag IV ONE (13:16)
[2021-03-30] MEDS ORDERED: Magnesium Sulfate/Water 2 GM in Premix Bag 1 BAG IV ONE (13:30)
--- NOTE | 2021-03-30 14:42 | PCM.PN ---
- General Info Date of Service: 03/30/21 - Review of Systems Systems Review Comment:: feeling better, denies any cough, dizziness or shortness of breath - Patient Data Vitals - Most Recent: Last Vital Signs Temp 36.1 C 03/30/21 11:56 Pulse 80 03/30/21 11:56 Resp 22 H 03/30/21 11:56 BP 137/74 03/30/21 11:56 Pulse Ox 95 03/30/21 11:56 Orthostatic Blood Pressure [ 73/38 Standing] Orthostatic Blood Pressure [ 75/46 Sitting] Orthostatic Blood Pressure [ 79/58 Supine] Weight - Most Recent: 112.037 kg I&O - Last 24 Hours: Intake & Output 03/29/21 03/30/21 03/30/21 22:59 06:59 14:59 Intake Total 500 2506 Output Total 800 2400 Balance -300 106 Lab Results Last 24 Hours: Laboratory Results - last 24 hr 03/30/21 03/30/21 03/30/21 Range/Units 08:00 08:00 08:00 WBC 1.58 L (4.0-11.0) K/uL RBC 2.76 L (4.50-5.90) M/uL Hgb 9.0 L (13.0-17.0) g/dL Hct 27.0 L (38.0-50.0) % MCV 97.8 (80.0-98.0) fL MCH 32.6 H (27.0-32.0) pg MCHC 33.3 (31.0-37.0) g/dL RDW Std Deviation 53.7 (28.0-62.0) fl RDW Coeff of [place] 15 (11.0-15.0) % Plt Count 146 L (150-400) K/uL MPV 9.30 (7.40-12.00) fL Neut % (Auto) 60.2 (48.0-80.0) % Lymph % (Auto) 27.8 (16.0-40.0) % [place] % (Auto) 8.9 (0.0-15.0) % Eos % (Auto) 2.5 (0.0-7.0) % Baso % (Auto) 0.6 (0.0-1.5) % Neut # (Auto) 1.0 L (1.4-5.7) K/uL Lymph # (Auto) 0.4 L (0.6-2.4) K/uL [place] # (Auto) 0.1 (0.0-0.8) K/uL Eos # (Auto) 0.0 (0.0-0.7) K/uL Baso # (Auto) 0.0 (0.0-0.1) K/uL Nucleated RBC % 1.1 /100WBC Nucleated RBCs # 0 K/uL Sodium 143 (136-148) mmol/L Potassium 2.8 L (3.5-5.1) mmol/L Chloride 108 H (98-107) mmol/L Carbon Dioxide 22.4 (21.0-32.0) mmol/L BUN 14 (7.0-18.0) mg/dL Creatinine 1.1 (0.8-1.3) mg/dL Est Cr Clr Drug Dosing 70.42 mL/min Estimated GFR (MDRD) > 60.0 ml/min Glucose 128 H (74-106) mg/dL Calcium 8.2 L (8.5-10.1) mg/dL Magnesium (1.8-2.4) mg/dL Vancomycin Trough 15.4 H (5.0-10.0) ug/mL 03/30/21 Range/Units 08:00 WBC (4.0-11.0) K/uL RBC (4.50-5.90) M/uL Hgb (13.0-17.0) g/dL Hct (38.0-50.0) % MCV (80.0-98.0) fL MCH (27.0-32.0) pg MCHC (31.0-37.0) g/dL RDW Std Deviation (28.0-62.0) fl RDW Coeff of [place] (11.0-15.0) % Plt Count (150-400) K/uL MPV (7.40-12.00) fL Neut % (Auto) (48.0-80.0) % Lymph % (Auto) (16.0-40.0) % [place] % (Auto) (0.0-15.0) % Eos % (Auto) (0.0-7.0) % Baso % (Auto) (0.0-1.5) % Neut # (Auto) (1.4-5.7) K/uL Lymph # (Auto) (0.6-2.4) K/uL [place] # (Auto) (0.0-0.8) K/uL Eos # (Auto) (0.0-0.7) K/uL Baso # (Auto) (0.0-0.1) K/uL Nucleated RBC % /100WBC Nucleated RBCs # K/uL Sodium (136-148) mmol/L Potassium (3.5-5.1) mmol/L Chloride (98-107) mmol/L Carbon Dioxide (21.0-32.0) mmol/L BUN (7.0-18.0) mg/dL Creatinine (0.8-1.3) mg/dL Est Cr Clr Drug Dosing mL/min Estimated GFR (MDRD) ml/min Glucose (74-106) mg/dL Calcium (8.5-10.1) mg/dL Magnesium 1.5 L (1.8-2.4) mg/dL Vancomycin Trough (5.0-10.0) ug/mL [place] Results Last 24 Hours: Microbiology 03/28/21 17:28 Aerobic Blood Culture - Preliminary Blood - Venous - Lab Draw NO GROWTH AFTER 1 DAY Anaerobic Blood Culture - Preliminary NO GROWTH AFTER 1 DAY 03/28/21 17:19 Aerobic Blood Culture - Preliminary Blood - Venous NO GROWTH AFTER 1 DAY Anaerobic Blood Culture - Preliminary NO GROWTH AFTER 1 DAY Med Orders - Current: Current Medications Apixaban (Apixaban 5 Mg Tab) 5 mg PO BID [facility] Last Admin: 03/30/21 09:10 Dose: 5 mg Documented by: Clopidogrel Bisulfate (Clopidogrel 75 Mg Tab) 75 mg PO DAILY [facility] Last Admin: 03/30/21 09:10 Dose: 75 mg Documented by: Piperacillin Sod/Tazobactam (Sod 3.375 gm/ Sodium Chloride) 50 mls @ 100 mls/hr IV Q6H [facility] Last Admin: 03/30/21 10:55 Dose: 100 mls/hr Documented by: Azithromycin 500 mg/ Sodium (Chloride) 250 mls @ 250 mls/hr IV Q24H [facility] Last Admin: 03/29/21 23:12 Dose: 250 mls/hr Documented by: Vancomycin HCl 1.25 gm/ Sodium (Chloride) 250 mls @ 166.667 mls/hr IV Q12H [facility] Last Admin: 03/30/21 09:09 Dose: 166.667 mls/hr Documented by: Pantoprazole Sodium (Pantoprazole 40 Mg Tab.Cr) 40 mg PO BIDAC [facility] Last Admin: 03/30/21 06:50 Dose: 40 mg Documented by: Rosuvastatin Calcium (Rosuvastatin 10 Mg Tab) 20 mg PO BEDTIME [facility] Last Admin: 03/29/21 21:31 Dose: 20 mg Documented by: Sodium Chloride (Sodium Chloride 0.9% 10 Ml Syringe) 10 ml FLUSH ASDIRECTED PRN PRN Reason: Keep Vein Open Sodium Chloride (Sodium Chloride 0.9% 2.5 Ml Syringe) 2.5 ml FLUSH ASDIRECTED PRN PRN Reason: Keep Vein Open Tramadol HCl (Tramadol 50 Mg Tab) 50 mg PO Q12HR [facility] Last Admin: 03/30/21 09:10 Dose: 50 mg Documented by: Venlafaxine HCl (Venlafaxine 75 Mg Cap.Er) 150 mg PO DAILY [facility] Last Admin: 03/30/21 09:12 Dose: 150 mg Documented by: Discontinued Medications Azithromycin (Azithromycin 500 Mg Vial) 500 mg IV Q24H [facility] Last Admin: 03/28/21 22:54 Dose: 500 mg Documented by: Sodium Chloride (Normal Saline) 1,000 mls @ 999 mls/hr IV STAT ONE Stop: 03/28/21 17:14 Last Admin: 03/28/21 16:53 Dose: 999 mls/hr Documented by: Piperacillin Sod/Tazobactam (Sod 3.375 gm/ Sodium Chloride) 50 mls @ 100 mls/hr IV ONETIME ONE Stop: 03/28/21 17:39 Last Admin: 03/28/21 17:45 Dose: 100 mls/hr Documented by: Sodium Chloride (Normal Saline) 1,000 mls @ 999 mls/hr IV STAT ONE Stop: 03/28/21 18:15 Last Admin: 03/28/21 17:45 Dose: 999 mls/hr Documented by: Sodium Chloride (Normal Saline) 1,000 mls @ 999 mls/hr IV STAT ONE Stop: 03/28/21 18:24 Last Admin: 03/28/21 17:46 Dose: 999 mls/hr Documented by: Sodium Chloride (Normal Saline) 1,000 mls @ 999 mls/hr IV STAT ONE Stop: 03/28/21 18:26 Last Admin: 03/28/21 19:37 Dose: 999 mls/hr Documented by: Sodium Chloride (Normal Saline) 1,000 mls @ 250 mls/hr IV STAT ONE Stop: 03/28/21 21:26 Last Admin: 03/28/21 20:00 Dose: 250 mls/hr Documented by: Vancomycin HCl 2 gm/ Premix 400 mls @ 200 mls/hr IV STAT ONE Stop: 03/28/21 21:14 Last Admin: 03/28/21 20:27 Dose: 200 mls/hr Documented by: Vancomycin HCl 1.25 gm/ Sodium (Chloride) 250 mls @ 166.667 mls/hr IV Q12H [facility] Last Admin: 03/30/21 11:35 Dose: Not Given Documented by: Piperacillin Sod/Tazobactam (Sod 3.375 gm/ Sodium Chloride) 50 mls @ 100 mls/hr IV Q6H [facility] Last Admin: 03/28/21 23:01 Dose: Not Given Documented by: Sodium Chloride (Normal Saline Advbag) Confirm Administered Dose 250 mls @ as directed .ROUTE .STK-MED ONE Stop: 03/28/21 22:53 Last Admin: 03/28/21 22:59 Dose: 250 mls/hr Documented by: Sodium Chloride (Normal Saline) 1,000 mls @ 100 mls/hr IV ASDIRECTED [facility] Last Admin: 03/30/21 02:33 Dose: 100 mls/hr Documented by: Lactated Ringer's (Ringers, Lactated) 500 mls @ 500 mls/hr IV .BOLUS ONE Stop: 03/29/21 02:36 Last Admin: 03/29/21 01:42 Dose: 500 mls/hr Documented by: Magnesium Sulfate 2 gm/ Premix 50 mls @ 50 mls/hr IV ONETIME ONE Stop: 03/29/21 15:44 Last Admin: 03/29/21 14:52 Dose: 50 mls/hr Documented by: Magnesium Sulfate 2 gm/ Premix 50 mls @ 50 mls/hr IV ONETIME ONE Stop: 03/30/21 14:29 Iopamidol (Iopamidol 755 Mg/Ml 500 Ml Multipack Bottle) 100 ml IVPUSH ONETIME STA Stop: 03/28/21 18:58 Last Admin: 03/28/21 22:59 Dose: Not Given Documented by: Non-Formulary Medication (Esomeprazole Magnesium [Esomeprazole Magnesium]) 1 cap PO BID [facility] Last Admin: 03/28/21 22:59 Dose: Not Given Documented by: Omeprazole (Omeprazole 20 Mg Cap.Cr) 20 mg PO BIDAC [facility] Potassium Chloride (Potassium Chloride 20 Meq Tab.Er) 40 meq PO ONETIME ONE Stop: 03/30/21 09:57 Last Admin: 03/30/21 10:54 Dose: 40 meq Documented by: Potassium Chloride (Potassium Chloride 20 Meq Tab.Er) 40 meq PO ONETIME ONE Stop: 03/30/21 13:18 Vancomycin HCl (Pharmacy To Dose - Vancomycin) 1 dose .XX ONETIME ONE Stop: 03/28/21 17:11 Last Admin: 03/29/21 22:51 Dose: Not Given Documented by: Vancomycin HCl (Pharmacy To Dose - Vancomycin) 1 dose .XX ASDIRECTED [facility] - Exam General: Alert, Oriented Neck: Supple Lungs: Clear to Auscultation, Normal Respiratory Effort Cardiovascular: Regular Rate, Regular Rhythm GI/Abdominal Exam: Soft, Non-Tender, No Distention Extremities: Non-Tender, No Pedal Edema Skin: Warm, Dry, Intact Neurological: No New Focal Deficit - Patient Data Lab Results Last 24 hrs: Laboratory Results - last 24 hr 03/30/21 03/30/21 03/30/21 Range/Units 08:00 08:00 08:00 WBC 1.58 L (4.0-11.0) K/uL RBC 2.76 L (4.50-5.90) M/uL Hgb 9.0 L (13.0-17.0) g/dL Hct 27.0 L (38.0-50.0) % MCV 97.8 (80.0-98.0) fL MCH 32.6 H (27.0-32.0) pg MCHC 33.3 (31.0-37.0) g/dL RDW Std Deviation 53.7 (28.0-62.0) fl RDW Coeff of [place] 15 (11.0-15.0) % Plt Count 146 L (150-400) K/uL MPV 9.30 (7.40-12.00) fL Neut % (Auto) 60.2 (48.0-80.0) % Lymph % (Auto) 27.8 (16.0-40.0) % [place] % (Auto) 8.9 (0.0-15.0) % Eos % (Auto) 2.5 (0.0-7.0) % Baso % (Auto) 0.6 (0.0-1.5) % Neut # (Auto) 1.0 L (1.4-5.7) K/uL Lymph # (Auto) 0.4 L (0.6-2.4) K/uL [place] # (Auto) 0.1 (0.0-0.8) K/uL Eos # (Auto) 0.0 (0.0-0.7) K/uL Baso # (Auto) 0.0 (0.0-0.1) K/uL Nucleated RBC % 1.1 /100WBC Nucleated RBCs # 0 K/uL Sodium 143 (136-148) mmol/L Potassium 2.8 L (3.5-5.1) mmol/L Chloride 108 H (98-107) mmol/L Carbon Dioxide 22.4 (21.0-32.0) mmol/L BUN 14 (7.0-18.0) mg/dL Creatinine 1.1 (0.8-1.3) mg/dL Est Cr Clr Drug Dosing 70.42 mL/min Estimated GFR (MDRD) > 60.0 ml/min Glucose 128 H (74-106) mg/dL Calcium 8.2 L (8.5-10.1) mg/dL Magnesium (1.8-2.4) mg/dL Vancomycin Trough 15.4 H (5.0-10.0) ug/mL 03/30/21 Range/Units 08:00 WBC (4.0-11.0) K/uL RBC (4.50-5.90) M/uL Hgb (13.0-17.0) g/dL Hct (38.0-50.0) % MCV (80.0-98.0) fL MCH (27.0-32.0) pg MCHC (31.0-37.0) g/dL RDW Std Deviation (28.0-62.0) fl RDW Coeff of [place] (11.0-15.0) % Plt Count (150-400) K/uL MPV (7.40-12.00) fL Neut % (Auto) (48.0-80.0) % Lymph % (Auto) (16.0-40.0) % [place] % (Auto) (0.0-15.0) % Eos % (Auto) (0.0-7.0) % Baso % (Auto) (0.0-1.5) % Neut # (Auto) (1.4-5.7) K/uL Lymph # (Auto) (0.6-2.4) K/uL [place] # (Auto) (0.0-0.8) K/uL Eos # (Auto) (0.0-0.7) K/uL Baso # (Auto) (0.0-0.1) K/uL Nucleated RBC % /100WBC Nucleated RBCs # K/uL Sodium (136-148) mmol/L Potassium (3.5-5.1) mmol/L Chloride (98-107) mmol/L Carbon Dioxide (21.0-32.0) mmol/L BUN (7.0-18.0) mg/dL Creatinine (0.8-1.3) mg/dL Est Cr Clr Drug Dosing mL/min Estimated GFR (MDRD) ml/min Glucose (74-106) mg/dL Calcium (8.5-10.1) mg/dL Magnesium 1.5 L (1.8-2.4) mg/dL Vancomycin Trough (5.0-10.0) ug/mL Result Diagrams: 03/30/21 08:00 03/30/21 08:00 [facility] Results Last 24 hrs: Microbiology 03/28/21 17:28 Aerobic Blood Culture - Preliminary Blood - Venous - Lab Draw NO GROWTH AFTER 1 DAY Anaerobic Blood Culture - Preliminary NO GROWTH AFTER 1 DAY 03/28/21 17:19 Aerobic Blood Culture - Preliminary Blood - Venous NO GROWTH AFTER 1 DAY Anaerobic Blood Culture - Preliminary NO GROWTH AFTER 1 DAY Sepsis Event Note - Evaluation Sepsis Screening Result: No Definite Risk - Focused Exam Vital Signs: Vital Signs Temp Pulse Resp BP Pulse Ox 03/30/21 11:56 36.1 C 80 22 H 137/74 95 11/18/21 08:28 36.2 C 91 20 121/67 98 03/30/21 05:00 36.4 C 83 15 122/65 95 - Problem List & Annotations (1) Community acquired pneumonia SNOMED Code(s): 982966611 Code(s): J18.9 - PNEUMONIA, UNSPECIFIED ORGANISM Status: Acute Current Visit: Yes Qualifiers: Laterality: right Lung location: upper lobe of lung Qualified Code(s): J18.9 - Pneumonia, unspecified organism (2) Immunocompromised SNOMED Code(s): 080892648 Code(s): D84.9 - IMMUNODEFICIENCY, UNSPECIFIED Status: Acute Current Visit: Yes (3) Sepsis SNOMED Code(s): 16046932 Code(s): A41.9 - SEPSIS, UNSPECIFIED ORGANISM Status: Acute Current Visit: Yes Qualifiers: Sepsis type: sepsis due to unspecified organism Sepsis acute organ dysfunct ion status: unspecified Qualified Code(s): A41.9 - Sepsis, unspecified organism (4) Stage 4 lung cancer SNOMED Code(s): 69678216, 57505267 Code(s): C34.90 - MALIGNANT NEOPLASM OF UNSP PART OF UNSP BRONCHUS OR LUNG Status: Acute Current Visit: Yes Qualifiers: Laterality: right Qualified Code(s): C34.91 - Malignant neoplasm of unspecified part of right bronchus or lung (5) CAD (coronary artery disease) SNOMED Code(s): 77485350 Code(s): I25.10 - ATHSCL HEART DISEASE OF [place] CORONARY ARTERY W/O ANG PCTRS Status: Chronic Current Visit: No Qualifiers: Coronary Disease-Associated Artery/Lesion type: [place] artery [place] vs. transplanted heart: [place] heart Associated angina: without angina Qualified Code(s): I25.10 - Atherosclerotic heart disease of [place] coronary artery without angina pectoris - Problem List Review Problem List Initiated/Reviewed/Updated: Yes - My Orders Last 24 Hours: My Active Orders 03/29/21 16:12 Transfer Patient (Change bed) [ADT] Routine 03/29/21 21:00 Azithromycin [Zithromax] 500 mg Sodium Chloride 0.9% [Normal Saline AdvBag] 250 ml IV Q24H Rosuvastatin [Crestor] 20 mg PO BEDTIME 03/31/21 05:11 BASIC METABOLIC PANEL,BMP [CHEM] AM CBC WITH AUTO DIFF [HEME] AM MAGNESIUM [CHEM] AM 03/31/21 20:00 VANCOMYCIN TROUGH [CHEM] Routine - Plan Plan:: 75 yo male admitted for sepsis from pneumonia vs dehydration from chemotherapy. Will monitor in ICU due to low blood pressures Pneumonia: on broad spectrum antibiotics, will d/c vancomycin and continue Zosyn/azithromycin. cultures pending Hx of DVT:on eliquis Hypokalemia/hypomagnesia: replacing.
[2021-03-30] MEDS: Azithromycin 500 MG in Sodium Chloride 0.9% 250 ML IV SCH (21:52)
[2021-03-30] MEDS: Rosuvastatin 10 MG Tab PO SCH (21:52)
[2021-03-31] MEDS: Piperacillin/Tazobactam 3.375 GM in Sodium Chloride 0.9% 50 ML IV SCH ×3 (00:17→12:48)
[2021-03-31] MEDS: Pantoprazole 40 MG Tab.CR PO SCH (06:33)
[2021-03-31 07:06] LABS: BLOOD UREA NITROGEN,BUN 11 mg/dL (7.0-18.0); CARBON DIOXIDE,CO2 21.8 mmol/L (21.0-32.0); CHLORIDE,CL 109 mmol/L (98-107); GLUCOSE RANDOM 120 mg/dL (74-106); POTASSIUM,K 3.4 mmol/L (3.5-5.1); SODIUM,NA 143 mmol/L (136-148)
[2021-03-31] MEDS ORDERED: Potassium Chloride 20 MEQ Tab.ER PO ONE (08:36)
[2021-03-31] MEDS ORDERED: Magnesium Sulfate/Water 2 GM/50 ML Premix Bag IV ONE (08:36)
[2021-03-31] MEDS ORDERED: Magnesium Sulfate/Water 2 GM in Premix Bag 1 BAG IV ONE (08:45)
[2021-03-31] MEDS: Clopidogrel 75 MG Tab PO SCH (09:22)
[2021-03-31] MEDS: Apixaban 5 MG Tab PO SCH (09:22)
[2021-03-31] MEDS: traMADol 50 MG Tab PO SCH (09:22)
[2021-03-31] MEDS: Venlafaxine 75 MG Cap.ER PO SCH (09:22)
--- NOTE | 2021-03-31 09:53 | PCM.DCSUM1 ---
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 Patient reports he had chemotherapy last Saturday and since then has felt ill. He denies any subjective fevers, cough or shortness of breath. He went to [facility] to get a COVID booster vaccine but they turned him away due to his symptoms of dizziness. He called the cancer center who instructed him to report to the ED. In the ED he was noted to be hypotensive which blood pressure improved with fluids. CT scan reported patchy infiltrates. - Discharge Data Discharge Date: 03/31/21 Discharge Disposition: Home, Self-Care 01 Condition: Good - Referral to Home Health Primary Care Physician: Kumar Galan MD - Discharge Diagnosis/Problem(s) (1) Community acquired pneumonia SNOMED Code(s): 255954411 ICD Code: J18.9 - PNEUMONIA, UNSPECIFIED ORGANISM Status: Acute Current Visit: Yes Qualifiers: Laterality: right Lung location: upper lobe of lung Qualified Code(s): J18.9 - Pneumonia, unspecified organism (2) Immunocompromised SNOMED Code(s): 790684348 ICD Code: D84.9 - IMMUNODEFICIENCY, UNSPECIFIED Status: Acute Current Visit: Yes (3) Sepsis SNOMED Code(s): 54625694 ICD Code: A41.9 - SEPSIS, UNSPECIFIED ORGANISM Status: Acute Current Visit: Yes Qualifiers: Sepsis type: sepsis due to unspecified organism Sepsis acute organ dysfunction status: unspecified Qualified Code(s): A41.9 - Sepsis, unspecified organism (4) Stage 4 lung cancer SNOMED Code(s): 03655859, 67782848 ICD Code: C34.90 - MALIGNANT NEOPLASM OF UNSP PART OF UNSP BRONCHUS OR LUNG Status: Acute Current Visit: Yes Qualifiers: Laterality: right Qualified Code(s): C34.91 - Malignant neoplasm of unspecified part of right bronchus or lung (5) CAD (coronary artery disease) SNOMED Code(s): 00236147 ICD Code: I25.10 - ATHSCL HEART DISEASE OF [place] CORONARY ARTERY W/O ANG PCTRS Status: Chronic Current Visit: No Qualifiers: Coronary Disease-Associated Artery/Lesion type: [place] artery [place] vs. transplanted heart: [place] heart Associated angina: without angina Qualified Code(s): I25.10 - Atherosclerotic heart disease of [place] coronary artery without angina pectoris - Patient Summary/Data Hospital Course: 75 yo male admitted for pneumonia with sepsis. His blood pressure improved quickly with IV fluids. He was treated with broad spectrum antibiotics with Zosyn and azithromycin. His symptoms resolved and today he is requesting discharge. Cultures have been no growth to date. He was discharged home on oral Levaquin and is to follow up with [facility]. - Patient Instructions Diet: Regular Diet as Tolerated Activity: As Tolerated - Discharge Plan Prescriptions/Med Rec: Levofloxacin [Levaquin] 500 mg PO DAILY #7 tablet Home Medications: Home Meds Metoprolol Tartrate [Lopressor] 12.5 mg PO BID 07/04/15 [History] Clopidogrel Bisulfate [Plavix] 75 mg PO DAILY 06/29/19 [History] Multivitamin [Multi-Vitamin Daily] 1 tab PO DAILY 06/29/19 [History] Rogers-3 Fatty Acids/Fish Oil [Fish Oil 1,200 mg Softgel] 1,200 mg PO BID 06/29/19 [History] Rosuvastatin [Crestor] 20 mg PO BEDTIME 06/29/19 [History] Venlafaxine [Venlafaxine HCl ER] 150 mg PO DAILY 06/29/19 [History] hydroCHLOROthiazide [Hydrochlorothiazide] 25 mg PO DAILY 06/29/19 [History] lisinopriL [Zestril] 10 mg PO DAILY 06/29/19 [History] Apixaban [Eliquis] 5 mg PO BID 11/21/20 [History] Calcium Carbonate [Calcium] 1 tab PO BID 11/21/20 [History] Esomeprazole Magnesium 40 mg PO BID 11/21/20 [History] traMADol [Ultram] 50 mg PO Q6H PRN 11/21/20 [History] dexAMETHasone [Dexamethasone] 4 mg PO BID 03/29/21 [History] Levofloxacin [Levaquin] 500 mg PO DAILY #7 tablet 03/31/21 [Rx] Patient Handouts: Sepsis, Diagnosis, Adult, Lung Cancer, Community-Acquired Pneumonia, Adult, [id number] Referrals: Kumar Galan MD [Primary Care Provider] - - Discharge Summary/Plan Comment DC Time >30 min.: No Total # of Minutes for Discharge Time: 15 - Patient Data Vitals - Most Recent: Last Vital Signs Temp 36.4 C 03/31/21 08:00 Pulse 82 03/31/21 08:00 Resp 16 03/31/21 08:00 BP 123/73 03/31/21 08:00 Pulse Ox 99 03/31/21 08:00 Orthostatic Blood Pressure [ 73/38 Standing] Orthostatic Blood Pressure [ 75/46 Sitting] Orthostatic Blood Pressure [ 79/58 Supine] Weight - Most Recent: 112.037 kg I&O - Last 24 hours: Intake & Output 03/30/21 03/31/21 03/31/21 22:59 06:59 14:59 Intake Total 1040 1400 Output Total 850 1800 Balance 190 -400 Lab Results - Last 24 hrs: Laboratory Results - last 24 hr 03/30/21 03/30/21 03/31/21 Range/Units 08:00 08:00 05:30 WBC 1.58 L 1.32 L (4.0-11.0) K/uL RBC 2.76 L 2.67 L (4.50-5.90) M/uL Hgb 9.0 L 8.8 L (13.0-17.0) g/dL Hct 27.0 L 25.9 L (38.0-50.0) % MCV 97.8 97.0 (80.0-98.0) fL MCH 32.6 H 33.0 H (27.0-32.0) pg MCHC 33.3 34.0 (31.0-37.0) g/dL RDW Std Deviation 53.7 53.0 (28.0-62.0) fl RDW Coeff of [place] 15 15 (11.0-15.0) % Plt Count 146 L 141 L (150-400) K/uL MPV 9.30 8.90 (7.40-12.00) fL Neut % (Auto) 60.2 (48.0-80.0) % Lymph % (Auto) 27.8 (16.0-40.0) % [place] % (Auto) 8.9 (0.0-15.0) % Eos % (Auto) 2.5 (0.0-7.0) % Baso % (Auto) 0.6 (0.0-1.5) % Neut # (Auto) 1.0 L (1.4-5.7) K/uL Lymph # (Auto) 0.4 L (0.6-2.4) K/uL [place] # (Auto) 0.1 (0.0-0.8) K/uL Eos # (Auto) 0.0 (0.0-0.7) K/uL Baso # (Auto) 0.0 (0.0-0.1) K/uL Add Manual Diff YES Neutrophils % (Manual) 49 (48.0-80.0) % Band Neutrophils % 2 % Lymphocytes % (Manual) 34 (16.0-40.0) % Monocytes % (Manual) 15 (0.0-15.0) % Nucleated RBC % 1.1 0.0 /100WBC Absolute Seg Neuts 0.6 L (1.4-5.7) Band Neutrophils # 0 Lymphocytes # (Manual) 0.4 L (0.6-2.4) Monocytes # (Manual) 0.2 (0.0-0.8) Nucleated RBCs # 0 0 K/uL Sodium (136-148) mmol/L Potassium (3.5-5.1) mmol/L Chloride (98-107) mmol/L Carbon Dioxide (21.0-32.0) mmol/L BUN (7.0-18.0) mg/dL Creatinine (0.8-1.3) mg/dL Est Cr Clr Drug Dosing mL/min Estimated GFR (MDRD) ml/min Glucose (74-106) mg/dL Calcium (8.5-10.1) mg/dL Magnesium 1.5 L (1.8-2.4) mg/dL 03/31/21 Range/Units 05:30 WBC (4.0-11.0) K/uL RBC (4.50-5.90) M/uL Hgb (13.0-17.0) g/dL Hct (38.0-50.0) % MCV (80.0-98.0) fL MCH (27.0-32.0) pg MCHC (31.0-37.0) g/dL RDW Std Deviation (28.0-62.0) fl RDW Coeff of [place] (11.0-15.0) % Plt Count (150-400) K/uL MPV (7.40-12.00) fL Neut % (Auto) (48.0-80.0) % Lymph % (Auto) (16.0-40.0) % [place] % (Auto) (0.0-15.0) % Eos % (Auto) (0.0-7.0) % Baso % (Auto) (0.0-1.5) % Neut # (Auto) (1.4-5.7) K/uL Lymph # (Auto) (0.6-2.4) K/uL [place] # (Auto) (0.0-0.8) K/uL Eos # (Auto) (0.0-0.7) K/uL Baso # (Auto) (0.0-0.1) K/uL Add Manual Diff Neutrophils % (Manual) (48.0-80.0) % Band Neutrophils % % Lymphocytes % (Manual) (16.0-40.0) % Monocytes % (Manual) (0.0-15.0) % Nucleated RBC % /100WBC Absolute Seg Neuts (1.4-5.7) Band Neutrophils # Lymphocytes # (Manual) (0.6-2.4) Monocytes # (Manual) (0.0-0.8) Nucleated RBCs # K/uL Sodium 143 (136-148) mmol/L Potassium 3.4 L (3.5-5.1) mmol/L Chloride 109 H (98-107) mmol/L Carbon Dioxide 21.8 (21.0-32.0) mmol/L BUN 11 (7.0-18.0) mg/dL Creatinine 1.0 (0.8-1.3) mg/dL Est Cr Clr Drug Dosing 77.46 mL/min Estimated GFR (MDRD) > 60.0 ml/min Glucose 120 H (74-106) mg/dL Calcium 8.1 L (8.5-10.1) mg/dL Magnesium 1.5 L (1.8-2.4) mg/dL RICCO Results - Last 24 hrs: Microbiology 03/28/21 16:50 Urine Culture - Preliminary Urine 03/28/21 17:28 Aerobic Blood Culture - Preliminary Blood - Venous - Lab Draw NO GROWTH AFTER 2 DAYS Anaerobic Blood Culture - Preliminary NO GROWTH AFTER 2 DAYS 03/28/21 17:19 Aerobic Blood Culture - Preliminary Blood - Venous NO GROWTH AFTER 2 DAYS Anaerobic Blood Culture - Preliminary NO GROWTH AFTER 2 DAYS Med Orders - Current: Current Medications Apixaban (Apixaban 5 Mg Tab) 5 mg PO BID [facility] Last Admin: 03/31/21 09:22 Dose: 5 mg Documented by: Clopidogrel Bisulfate (Clopidogrel 75 Mg Tab) 75 mg PO DAILY [facility] Last Admin: 03/31/21 09:22 Dose: 75 mg Documented by: Piperacillin Sod/Tazobactam (Sod 3.375 gm/ Sodium Chloride) 50 mls @ 100 mls/hr IV Q6H [facility] Last Admin: 03/31/21 06:24 Dose: 100 mls/hr Documented by: Azithromycin 500 mg/ Sodium (Chloride) 250 mls @ 250 mls/hr IV Q24H [facility] Last Admin: 03/30/21 21:52 Dose: 250 mls/hr Documented by: Magnesium Sulfate 2 gm/ Premix 50 mls @ 25 mls/hr IV ONETIME ONE Stop: 03/31/21 10:44 Last Admin: 03/31/21 09:22 Dose: 25 mls/hr Documented by: Pantoprazole Sodium (Pantoprazole 40 Mg Tab.Cr) 40 mg PO BIDAC [facility] Last Admin: 03/31/21 06:33 Dose: 40 mg Documented by: Rosuvastatin Calcium (Rosuvastatin 10 Mg Tab) 20 mg PO BEDTIME [facility] Last Admin: 03/30/21 21:52 Dose: 20 mg Documented by: Sodium Chloride (Sodium Chloride 0.9% 10 Ml Syringe) 10 ml FLUSH ASDIRECTED PRN PRN Reason: Keep Vein Open Sodium Chloride (Sodium Chloride 0.9% 2.5 Ml Syringe) 2.5 ml FLUSH ASDIRECTED PRN PRN Reason: Keep Vein Open Tramadol HCl (Tramadol 50 Mg Tab) 50 mg PO Q12HR [facility] Last Admin: 03/31/21 09:22 Dose: 50 mg Documented by: Venlafaxine HCl (Venlafaxine 75 Mg Cap.Er) 150 mg PO DAILY [facility] Last Admin: 03/31/21 09:22 Dose: 150 mg Documented by: Discontinued Medications Azithromycin (Azithromycin 500 Mg Vial) 500 mg IV Q24H [facility] Last Admin: 03/28/21 22:54 Dose: 500 mg Documented by: Sodium Chloride (Normal Saline) 1,000 mls @ 999 mls/hr IV STAT ONE Stop: 03/28/21 17:14 Last Admin: 03/28/21 16:53 Dose: 999 mls/hr Documented by: Piperacillin Sod/Tazobactam (Sod 3.375 gm/ Sodium Chloride) 50 mls @ 100 mls/hr IV ONETIME ONE Stop: 03/28/21 17:39 Last Admin: 03/28/21 17:45 Dose: 100 mls/hr Documented by: Sodium Chloride (Normal Saline) 1,000 mls @ 999 mls/hr IV STAT ONE Stop: 03/28/21 18:15 Last Admin: 03/28/21 17:45 Dose: 999 mls/hr Documented by: Sodium Chloride (Normal Saline) 1,000 mls @ 999 mls/hr IV STAT ONE Stop: 03/28/21 18:24 Last Admin: 03/28/21 17:46 Dose: 999 mls/hr Documented by: Sodium Chloride (Normal Saline) 1,000 mls @ 999 mls/hr IV STAT ONE Stop: 03/28/21 18:26 Last Admin: 03/28/21 19:37 Dose: 999 mls/hr Documented by: Sodium Chloride (Normal Saline) 1,000 mls @ 250 mls/hr IV STAT ONE Stop: 03/28/21 21:26 Last Admin: 03/28/21 20:00 Dose: 250 mls/hr Documented by: Vancomycin HCl 2 gm/ Premix 400 mls @ 200 mls/hr IV STAT ONE Stop: 03/28/21 21:14 Last Admin: 03/28/21 20:27 Dose: 200 mls/hr Documented by: Vancomycin HCl 1.25 gm/ Sodium (Chloride) 250 mls @ 166.667 mls/hr IV Q12H [facility] Last Admin: 03/30/21 11:35 Dose: Not Given Documented by: Piperacillin Sod/Tazobactam (Sod 3.375 gm/ Sodium Chloride) 50 mls @ 100 mls/hr IV Q6H [facility] Last Admin: 03/28/21 23:01 Dose: Not Given Documented by: Sodium Chloride (Normal Saline Advbag) Confirm Administered Dose 250 mls @ as directed .ROUTE .STK-MED ONE Stop: 03/28/21 22:53 Last Admin: 03/28/21 22:59 Dose: 250 mls/hr Documented by: Sodium Chloride (Normal Saline) 1,000 mls @ 100 mls/hr IV ASDIRECTED [facility] Last Admin: 03/30/21 02:33 Dose: 100 mls/hr Documented by: Lactated Ringer's (Ringers, Lactated) 500 mls @ 500 mls/hr IV .BOLUS ONE Stop: 03/29/21 02:36 Last Admin: 03/29/21 01:42 Dose: 500 mls/hr Documented by: Magnesium Sulfate 2 gm/ Premix 50 mls @ 50 mls/hr IV ONETIME ONE Stop: 03/29/21 15:44 Last Admin: 03/29/21 14:52 Dose: 50 mls/hr Documented by: Vancomycin HCl 1.25 gm/ Sodium (Chloride) 250 mls @ 166.667 mls/hr IV Q12H [facility] Last Admin: 03/30/21 09:09 Dose: 166.667 mls/hr Documented by: Magnesium Sulfate 2 gm/ Premix 50 mls @ 50 mls/hr IV ONETIME ONE Stop: 03/30/21 14:29 Last Admin: 03/30/21 14:35 Dose: 50 mls/hr Documented by: Iopamidol (Iopamidol 755 Mg/Ml 500 Ml Multipack Bottle) 100 ml IVPUSH ONETIME STA Stop: 03/28/21 18:58 Last Admin: 03/28/21 22:59 Dose: Not Given Documented by: Non-Formulary Medication (Esomeprazole Magnesium [Esomeprazole Magnesium]) 1 cap PO BID [facility] Last Admin: 03/28/21 22:59 Dose: Not Given Documented by: Omeprazole ([facility]ole 20 Mg Cap.Cr) [facility] Potassium Chloride (Potassium Chloride 20 Meq Tab.Er) 40 meq PO ONETIME ONE Stop: 03/30/21 09:57 Last Admin: 03/30/21 10:54 Dose: 40 meq Documented by: Potassium Chloride (Potassium Chloride 20 Meq Tab.Er) 40 meq PO ONETIME ONE Stop: 03/30/21 13:18 Last Admin: 03/30/21 14:34 Dose: 40 meq Documented by: Potassium Chloride (Potassium Chloride 20 Meq Tab.Er) 40 meq PO ONETIME ONE Stop: 03/31/21 08:37 Last Admin: 03/31/21 09:21 Dose: 40 meq Documented by: Vancomycin HCl (Pharmacy To Dose - Vancomycin) 1 dose .XX ONETIME ONE Stop: 03/28/21 17:11 Last Admin: 03/29/21 22:51 Dose: Not Given Documented by: Vancomycin HCl (Pharmacy To Dose - Vancomycin) 1 dose .XX ASDIRECTED [facility]
[2021-03-31 14:36] VITALS: BP 120/73; PULSE 75
== END 2021-03-31 13:00 | disposition home or self-care (01) | DRG 720 ==
LOC: MW.ED 15:07 → MW.ICU 21:16 → MW.MS 03-29 17:13
PROVIDERS: ADMIT Internal Medicine; ATTEND Internal Medicine
DX: A41.9 Sepsis, unspecified organism (principal); J18.9 Pneumonia, unspecified organism; D84.9 Immunodeficiency, unspecified; C34.91 Malignant neoplasm of unspecified part of right bronchus or lung; I25.10 Atherosclerotic heart disease of native coronary artery without angina pectoris; Z79.899 Other long term (current) drug therapy; C79.51 Secondary malignant neoplasm of bone; C79.89 Secondary malignant neoplasm of other specified sites; Z79.01 Long term (current) use of anticoagulants; Z88.5 Allergy status to narcotic agent; H91.90 Unspecified hearing loss, unspecified ear; Z97.4 Presence of external hearing-aid; E78.00 Pure hypercholesterolemia, unspecified; I10 Essential (primary) hypertension; Z95.5 Presence of coronary angioplasty implant and graft; G47.30 Sleep apnea, unspecified; K21.9 Gastro-esophageal reflux disease without esophagitis; K44.9 Diaphragmatic hernia without obstruction or gangrene; K22.70 Barrett's esophagus without dysplasia; M19.90 Unspecified osteoarthritis, unspecified site; M10.9 Gout, unspecified; F41.9 Anxiety disorder, unspecified; F32.A Depression, unspecified; E66.9 Obesity, unspecified; Z86.19 Personal history of other infectious and parasitic diseases; Z98.41 Cataract extraction status, right eye; Z96.653 Presence of artificial knee joint, bilateral; E78.5 Hyperlipidemia, unspecified; Z20.822 Contact with and (suspected) exposure to COVID-19
CPT/HCPCS: 0240U; 36415; 36600; 71045; 71045-26; 71275; 71275-26; 80048; 80053; 80202; 81001; 82803; 83605; 83735; 83880; 84100; 84443; 84484; 85025; 85610; 87040; 87086; 93005; 96365; 96367; 99285-25; A9270-GY; J0456; J1642; J2543; J3370; J3475; J7030; J7050; J7120

== ENCOUNTER 2021-07-20 09:26 | Emergency (ER) | payer OTHER, MEDICARE, BC ==
[2021-07-20] MEDS ORDERED: Sodium Chloride 0.9% 1,000 ML IV ONE (09:46)
[2021-07-20 11:01] LABS: BLOOD UREA NITROGEN,BUN 14 mg/dL (7.0-18.0); CARBON DIOXIDE,CO2 23.8 mmol/L (21.0-32.0); CHLORIDE,CL 98 mmol/L (98-107); GLUCOSE RANDOM 110 mg/dL (74-106); POTASSIUM,K 2.8 mmol/L (3.5-5.1); SODIUM,NA 135 mmol/L (136-148)
[2021-07-20 11:04] LABS: CORONAVIRUS COVID-19 NAA NEGATIVE (NEGATIVE); INFLUENZA A NAA NEGATIVE (NEGATIVE); INFLUENZA B NAA NEGATIVE (NEGATIVE)
[2021-07-20] MEDS ORDERED: Magnesium Sulfate/Water 2 GM in Premix Bag 1 BAG IV ONE (11:05)
[2021-07-20] MEDS ORDERED: Potassium Chloride 20 MEQ Tab.ER PO ONE (11:05)
[2021-07-20] MEDS ORDERED: Potassium Chloride Riders 40 MEQ in Premix Bag 1 BAG IV ONE (11:05)
[2021-07-20] MEDS ORDERED: Iopamidol 755 MG/ML 500 ML Multipack Bottle IVPUSH STA (11:34)
[2021-07-20] MEDS ORDERED: Cefepime 1 GM in Premix Bag 1 BAG IV ONE ×2 (12:55→16:15)
[2021-07-20] MEDS ORDERED: Azithromycin 500 MG in Sodium Chloride 0.9% 250 ML IV SCH (13:00)
[2021-07-20 17:15] VITALS: BP 110/57; PULSE 78
== END 2021-07-20 17:15 | disposition home or self-care (01) ==
LOC: MW.ED 09:26
DX: J18.9 Pneumonia, unspecified organism (principal); K21.9 Gastro-esophageal reflux disease without esophagitis; M10.9 Gout, unspecified; M19.90 Unspecified osteoarthritis, unspecified site; E66.9 Obesity, unspecified; Z20.822 Contact with and (suspected) exposure to COVID-19; Z88.5 Allergy status to narcotic agent; Z91.048 Other nonmedicinal substance allergy status; Z79.899 Other long term (current) drug therapy; Z79.01 Long term (current) use of anticoagulants; Z79.02 Long term (current) use of antithrombotics/antiplatelets; Z68.31 Body mass index [BMI] 31.0-31.9, adult
CPT/HCPCS: 0240U; 36415; 70450; 71275; 80053; 81003; 83605; 83735; 83880; 84484; 85025; 85610; 85730; 86140; 87040; 93005; 96365; 96366; 96367; 96368; 99285; A9270; J0456; J0692; J1642; J3475; J3480; J7030; J7050; Q9967

== ENCOUNTER 2021-08-01 09:10 | Day surgery (SDC) | payer OTHER, MEDICARE, BC ==
[~2021-08-01 09:10] MED LIST changes: +Sodium Chloride 0.9% 10 ML Syringe FLUSH PRN; +Sodium Chloride 0.9% 2.5 ML Syringe FLUSH PRN; +Sodium Chloride 0.9% 20 ML SDV IV PRN; +ceFAZolin 2 GM in Premix Bag 1 BAG IV ONE; -cefOXitin 2 GM in Premix Bag 1 BAG IV ONE
[2021-08-01] MEDS ORDERED: Metoclopramide 10 MG/2 ML SDV IVPUSH PRN (09:43)
[2021-08-01] MEDS ORDERED: fentaNYL 100 MCG/2 ML SDV IVPUSH PRN (09:43)
[2021-08-01] MEDS ORDERED: Ondansetron 4 MG/2 ML SDV IVPUSH PRN (09:43)
[2021-08-01] MEDS ORDERED: Naloxone 0.4 MG/ML SDV IVPUSH PRN (09:43)
[2021-08-01] MEDS ORDERED: HYDROmorphone 1 MG/ML Syringe IVPUSH PRN (09:43)
[2021-08-01] MEDS ORDERED: Albuterol 0.083% 2.5 MG/3 ML Neb Soln NEB PRN (09:43)
[2021-08-01] MEDS ORDERED: Lidocaine 1% 20 ML MDV ONE (09:54)
[2021-08-01] MEDS ORDERED: Heparin Sodium 100 Units/ML 3 ML Syringe ONE (09:54)
[2021-08-01] MEDS ORDERED: Bupivacaine 0.5% 10 ML SDV ONE (09:54)
[2021-08-01] MEDS ORDERED: Octyl 2-Cyanoacrylate 1 Tube ONE ×2 (09:54→11:55)
[2021-08-01] MEDS ORDERED: Iopamidol 408 MG/ML 20 ML SDV ONE (09:55)
[2021-08-01] MEDS ORDERED: fentaNYL 100 MCG/2 ML SDV ONE (10:07)
[2021-08-01] MEDS ORDERED: Propofol 200 MG/20 ML SDV ONE (10:07)
[2021-08-01] MEDS ORDERED: Midazolam 1 MG/ML 2 ML SDV ONE (10:31)
[2021-08-01] MEDS ORDERED: Ketamine HCL/NACL, ISO-OSM 50 MG/5 ML Syringe ONE (10:31)
[2021-08-01 13:21] VITALS: BP 117/57; PULSE 78
== END 2021-08-01 13:40 | disposition home or self-care (01) ==
LOC: MW.SDS 09:10
PROVIDERS: ATTEND Surgery
DX: Z45.2 Encounter for adjustment and management of vascular access device (principal); C34.90 Malignant neoplasm of unspecified part of unspecified bronchus or lung; C79.9 Secondary malignant neoplasm of unspecified site; I25.10 Atherosclerotic heart disease of native coronary artery without angina pectoris; E78.00 Pure hypercholesterolemia, unspecified; I10 Essential (primary) hypertension; D50.9 Iron deficiency anemia, unspecified; G47.33 Obstructive sleep apnea (adult) (pediatric); K21.9 Gastro-esophageal reflux disease without esophagitis; E66.9 Obesity, unspecified; Z68.31 Body mass index [BMI] 31.0-31.9, adult; Z88.5 Allergy status to narcotic agent; Z88.6 Allergy status to analgesic agent; Z91.048 Other nonmedicinal substance allergy status; Z98.890 Other specified postprocedural states; Z95.5 Presence of coronary angioplasty implant and graft; Z79.01 Long term (current) use of anticoagulants; Z79.899 Other long term (current) drug therapy; Z86.711 Personal history of pulmonary embolism; Z86.718 Personal history of other venous thrombosis and embolism; Z87.891 Personal history of nicotine dependence
CPT/HCPCS: 36561; 36590; 71045; 76000; A9270; C1788; J1642; J2250; J2704; J3010; J3490; J7120; 00532; 99100; Q9966

== ENCOUNTER 2021-08-07 11:40 | Inpatient (IN) | payer OTHER, MEDICARE, BC ==
[2021-08-07] MEDS ORDERED: Sodium Chloride 0.9% 10 ML Syringe FLUSH PRN (11:49)
[2021-08-07] MEDS ORDERED: Sodium Chloride 0.9% 2.5 ML Syringe FLUSH PRN (11:49)
[2021-08-07] MEDS ORDERED: Acetaminophen 500 MG Tab PO ONE (12:43)
[2021-08-07] MEDS ORDERED: Sodium Chloride 0.9% 1,000 ML IV ONE ×2 (12:43→17:44)
[2021-08-07 12:50] LABS: CORONAVIRUS COVID-19 NAA NEGATIVE (NEGATIVE); INFLUENZA A NAA NEGATIVE (NEGATIVE); INFLUENZA B NAA NEGATIVE (NEGATIVE)
[2021-08-07] MEDS ORDERED: Iopamidol 755 MG/ML 500 ML Multipack Bottle IVPUSH STA (15:24)
[2021-08-07] MEDS ORDERED: Doxycycline 100 MG in Sodium Chloride 0.9% 100 ML IV STA (17:38)
[2021-08-07] MEDS ORDERED: cefTRIAXone 1 GM in Sodium Chloride 0.9% 50 ML IV ONE (17:38)
[2021-08-07] MEDS ORDERED: Piperacillin/Tazobactam 3.375 GM in Sodium Chloride 0.9% 50 ML IV ONE (17:44)
[2021-08-07] MEDS ORDERED: VANCOmycin 1.75 GM/350 ML 1.75 GM in Premix Bag 1 BAG IV ONE (18:15)
[2021-08-07] MEDS ORDERED: Morphine 2 MG/ML SYRINGE IVPUSH PRN (20:05)
[2021-08-07] MEDS ORDERED: Albuterol/Ipratropium 3.0-0.5 MG/3 ML Neb Soln NEB PRN (20:05)
[2021-08-07] MEDS ORDERED: Ondansetron 4 MG/2 ML SDV IVPUSH PRN (20:05)
[2021-08-07] MEDS ORDERED: Lactated Ringers 1,000 ML IV ONE (20:21)
[2021-08-07] MEDS: Pantoprazole 40 MG in Sodium Chloride 0.9% 10 ML IVPUSH SCH (21:26)
[2021-08-07] MEDS: Lactated Ringers 1,000 ML IV SCH (22:17)
[2021-08-07] MEDS ORDERED: LORazepam 0.5 MG Tab PO PRN (23:06)
[2021-08-07] MEDS ORDERED: Acetaminophen 325 MG Tab PO PRN (23:06)
[2021-08-07] MEDS ORDERED: Azithromycin 500 MG in Sodium Chloride 0.9% 250 ML IV SCH (23:30)
[2021-08-07] MEDS ORDERED: Potassium Chloride 20 MEQ Tab.ER PO ONE (23:35)
[2021-08-07] MEDS: Apixaban 5 MG Tab PO SCH (23:50)
[2021-08-08] MEDS ORDERED: Lactated Ringers 500 ML IV ONE (00:15)
[2021-08-08] MEDS ORDERED: Piperacillin/Tazobactam 3.375 GM in Sodium Chloride 0.9% 50 ML IV SCH ×3 (01:00→08:00)
[2021-08-08] MEDS: Lactated Ringers 1,000 ML IV SCH ×2 (03:37→17:47)
[2021-08-08 07:16] LABS: CARBON DIOXIDE,CO2 22.1 mmol/L (21.0-32.0); POTASSIUM,K 3.2 mmol/L (3.5-5.1)
[2021-08-08] MEDS: VANCOmycin 1.75 GM/350 ML 1.75 GM in Premix Bag 1 BAG IV SCH ×2 (07:46→19:58)
[2021-08-08] MEDS: Potassium Chloride 20 MEQ Tab.ER PO SCH ×2 (08:39→13:07)
[2021-08-08] MEDS: Venlafaxine 75 MG Cap.ER PO SCH (08:41)
[2021-08-08] MEDS: Multivitamin Tab PO SCH (08:41)
[2021-08-08] MEDS: Apixaban 5 MG Tab PO SCH ×2 (08:42→22:00)
[2021-08-08] MEDS: Folic Acid 1 MG Tab PO SCH (08:43)
[2021-08-08] MEDS: Clopidogrel 75 MG Tab PO SCH (08:43)
[2021-08-08] MEDS: Calcium Carbonate 500 MG Tab.Chew PO SCH (08:44)
[2021-08-08] MEDS: Pantoprazole 40 MG in Sodium Chloride 0.9% 10 ML IVPUSH SCH (08:45)
[2021-08-08] MEDS ORDERED: Dexamethasone 4 MG Tab PO SCH (09:00)
[2021-08-08] MEDS ORDERED: Magnesium Sulfate/Water 4 GM in Premix Bag 1 BAG IV ONE (10:00)
[2021-08-08] MEDS ORDERED: traMADol 50 MG Tab PO PRN (10:16)
[2021-08-08] MEDS: Piperacillin/Tazobactam 3.375 GM in Sodium Chloride 0.9% 50 ML IV SCH ×3 (10:20→22:00)
[2021-08-08] MEDS ORDERED: Rosuvastatin 10 MG Tab PO SCH (21:00)
[2021-08-08] MEDS ORDERED: Azithromycin 500 MG in Sodium Chloride 0.9% 250 ML IV SCH (23:00)
[2021-08-09] MEDS: Piperacillin/Tazobactam 3.375 GM in Sodium Chloride 0.9% 50 ML IV SCH ×2 (02:31→10:20)
[2021-08-09] MEDS: VANCOmycin 1.75 GM/350 ML 1.75 GM in Premix Bag 1 BAG IV SCH (06:51)
[2021-08-09] MEDS: Pantoprazole 40 MG in Sodium Chloride 0.9% 10 ML IVPUSH SCH (08:28)
[2021-08-09 08:44] LABS: BLOOD UREA NITROGEN,BUN 12 mg/dL (7.0-18.0); CARBON DIOXIDE,CO2 19.4 mmol/L (21.0-32.0); CHLORIDE,CL 108 mmol/L (98-107); GLUCOSE RANDOM 89 mg/dL (74-106); POTASSIUM,K 3.3 mmol/L (3.5-5.1); SODIUM,NA 140 mmol/L (136-148)
[2021-08-09] MEDS: Clopidogrel 75 MG Tab PO SCH (09:02)
[2021-08-09] MEDS: Venlafaxine 75 MG Cap.ER PO SCH (09:02)
[2021-08-09] MEDS: Multivitamin Tab PO SCH (09:03)
[2021-08-09] MEDS: Folic Acid 1 MG Tab PO SCH (09:03)
[2021-08-09] MEDS: Calcium Carbonate 500 MG Tab.Chew PO SCH (09:04)
[2021-08-09] MEDS: Apixaban 5 MG Tab PO SCH (09:04)
[2021-08-09] MEDS ORDERED: Potassium Chloride 20 MEQ Tab.ER PO ONE (09:24)
[2021-08-09 12:05] VITALS: BP 121/71; PULSE 76
[2021-08-09] MEDS ORDERED: VANCOmycin 1.5 GM/300 ML 1.5 GM in Premix Bag 1 BAG IV SCH (19:00)
== END 2021-08-09 14:14 | disposition home or self-care (01) | DRG 871 ==
LOC: MW.ED 11:40 → MW.MS 17:45
PROVIDERS: ADMIT Student in an Organized Health Care Education/Training Program; ATTEND Student in an Organized Health Care Education/Training Program
DX: A41.9 Sepsis, unspecified organism (principal); J18.9 Pneumonia, unspecified organism; D84.9 Immunodeficiency, unspecified; C34.90 Malignant neoplasm of unspecified part of unspecified bronchus or lung; C79.51 Secondary malignant neoplasm of bone; R65.20 Severe sepsis without septic shock; I25.10 Atherosclerotic heart disease of native coronary artery without angina pectoris; F32.A Depression, unspecified; E78.5 Hyperlipidemia, unspecified; I10 Essential (primary) hypertension; Z20.822 Contact with and (suspected) exposure to COVID-19; D50.9 Iron deficiency anemia, unspecified; K22.70 Barrett's esophagus without dysplasia; M06.9 Rheumatoid arthritis, unspecified; M10.9 Gout, unspecified; E61.1 Iron deficiency; G47.33 Obstructive sleep apnea (adult) (pediatric); H91.93 Unspecified hearing loss, bilateral; E78.00 Pure hypercholesterolemia, unspecified; G47.30 Sleep apnea, unspecified; M19.90 Unspecified osteoarthritis, unspecified site; F41.9 Anxiety disorder, unspecified; E66.9 Obesity, unspecified; H54.7 Unspecified visual loss; K21.9 Gastro-esophageal reflux disease without esophagitis; K44.9 Diaphragmatic hernia without obstruction or gangrene; Z86.718 Personal history of other venous thrombosis and embolism; Z79.01 Long term (current) use of anticoagulants; Z86.711 Personal history of pulmonary embolism; Z88.5 Allergy status to narcotic agent; Z79.899 Other long term (current) drug therapy; Z95.5 Presence of coronary angioplasty implant and graft; Z68.29 Body mass index [BMI] 29.0-29.9, adult; Z98.49 Cataract extraction status, unspecified eye; Z88.8 Allergy status to other drugs, medicaments and biological substances; Z92.21 Personal history of antineoplastic chemotherapy; Z79.02 Long term (current) use of antithrombotics/antiplatelets
CPT/HCPCS: 0240U; 36415; 70450; 71275; 80048; 80053; 80202; 81001; 83605; 83735; 84100; 84484; 85025; 87040; 93005; 99285; A9270-GY; C9113; J0456; J1642; J2543; J3370; J3475; J3490; J7030; J7050; J7120; Q9967

== ENCOUNTER 2021-12-12 09:28 | Observation (INO) | payer BC, MEDICARE, OTHER ==
[2021-12-12] MEDS ORDERED: Sodium Chloride 0.9% 1,000 ML IV ONE (09:42)
[2021-12-12] MEDS ORDERED: Cefepime 2 GM in Premix Bag 1 BAG IV ONE (09:44)
[2021-12-12] MEDS ORDERED: Acetaminophen 500 MG Tab PO ONE (09:45)
[2021-12-12 10:33] LABS: CARBON DIOXIDE,CO2 20.6 mmol/L (21.0-32.0); POTASSIUM,K 3.1 mmol/L (3.5-5.1)
[2021-12-12] MEDS ORDERED: Dexamethasone 4 MG/ML SDV IVPUSH ONE (12:23)
[2021-12-12] MEDS ORDERED: Magnesium Sulfate/Water 2 GM in Premix Bag 1 BAG IV ONE (12:25)
[2021-12-12] MEDS ORDERED: Potassium Chloride 10% 20 MEQ/15 ML Soln 30 ML UD Cup PO ONE (12:25)
[2021-12-12] MEDS ORDERED: REMDESIVIR 200 MG in Sodium Chloride 0.9% 250 ML IV ONE ×2 (13:11→13:45)
[2021-12-12] MEDS ORDERED: Iopamidol 755 MG/ML 500 ML Multipack Bottle IVPUSH STA (13:45)
[2021-12-12] MEDS ORDERED: Albuterol/Ipratropium 3.0-0.5 MG/3 ML Neb Soln NEB PRN (15:40)
[2021-12-12] MEDS ORDERED: Acetaminophen 325 MG Tab PO PRN (15:40)
[2021-12-12] MEDS ORDERED: Ondansetron 4 MG/2 ML SDV IVPUSH PRN (15:40)
[2021-12-12] MEDS: Pantoprazole 40 MG in Sodium Chloride 0.9% 10 ML IVPUSH SCH (16:45)
[2021-12-12] MEDS: Albuterol/Ipratropium 4 GM Inhalation Spray INH SCH ×2 (16:46→20:58)
[2021-12-12] MEDS ORDERED: Albuterol/Ipratropium 4 GM Inhalation Spray INH PRN (22:00)
[2021-12-13] MEDS ORDERED: Levofloxacin/Dextrose 5%-Water 750 MG in Premix Bag 1 BAG IV SCH ×2
[2021-12-13 07:53] LABS: CARBON DIOXIDE,CO2 21.9 mmol/L (21.0-32.0); POTASSIUM,K 3.2 mmol/L (3.5-5.1)
[2021-12-13] MEDS ORDERED: Dexamethasone 4 MG Tab PO SCH (09:00)
[2021-12-13] MEDS ORDERED: Magnesium Oxide 400 MG Tab PO ONE (09:30)
[2021-12-13] MEDS: Potassium Chloride 100 ML IV SCH ×2 (09:56→13:11)
[2021-12-13] MEDS ORDERED: Sodium Chloride 0.9% 500 ML IV ONE (10:00)
[2021-12-13 12:01] VITALS: BP 102/57; PULSE 81
[2021-12-13] MEDS ORDERED: REMDESIVIR 100 MG in Sodium Chloride 0.9% 100 ML IV SCH (15:00)
[2021-12-13] MEDS: Pantoprazole 40 MG in Sodium Chloride 0.9% 10 ML IVPUSH SCH (16:23)
== END 2021-12-13 16:00 | disposition home or self-care (01) ==
LOC: MW.ED 09:28 → MW.MS 13:12
PROVIDERS: ADMIT Student in an Organized Health Care Education/Training Program; ATTEND Student in an Organized Health Care Education/Training Program
DX: U07.1 COVID-19 (principal); J12.82 Pneumonia due to coronavirus disease 2019; C34.90 Malignant neoplasm of unspecified part of unspecified bronchus or lung; I25.10 Atherosclerotic heart disease of native coronary artery without angina pectoris; D84.9 Immunodeficiency, unspecified; F32.9 Major depressive disorder, single episode, unspecified; I10 Essential (primary) hypertension; K21.9 Gastro-esophageal reflux disease without esophagitis; E78.00 Pure hypercholesterolemia, unspecified; F41.9 Anxiety disorder, unspecified; M19.90 Unspecified osteoarthritis, unspecified site; E66.01 Morbid (severe) obesity due to excess calories; J44.9 Chronic obstructive pulmonary disease, unspecified; Z79.83 Long term (current) use of bisphosphonates; Z79.899 Other long term (current) drug therapy; Z79.01 Long term (current) use of anticoagulants; Z79.891 Long term (current) use of opiate analgesic; Z79.52 Long term (current) use of systemic steroids; Z95.5 Presence of coronary angioplasty implant and graft; Z88.6 Allergy status to analgesic agent; Z88.5 Allergy status to narcotic agent; Z98.890 Other specified postprocedural states; Z96.659 Presence of unspecified artificial knee joint; Z68.30 Body mass index [BMI] 30.0-30.9, adult
CPT/HCPCS: 36415; 71045; 71275; 80053; 81003; 82248; 82803; 82947; 83605; 83735; 83880; 84100; 84484; 85025; 87040; 87635; 93005; 96361; 96365; 96367; 96375; 99285; A9270; C9113; G0378; J0692; J1100; J1642; J1956; J3475; J3480; J3490; J7030; J7040; J7050; J8540; Q9967; 93010; 99217; 99220; 99284; U0002

== ENCOUNTER 2021-12-25 16:11 | Emergency (ER) | payer OTHER ==
[2021-12-25] MEDS ORDERED: Sodium Chloride 0.9% 2.5 ML Syringe FLUSH PRN (16:34)
[2021-12-25] MEDS ORDERED: Sodium Chloride 0.9% 10 ML Syringe FLUSH PRN (16:34)
[2021-12-25 17:55] LABS: CORONAVIRUS COVID-19 NAA POSITIVE (NEGATIVE); INFLUENZA A NAA NEGATIVE (NEGATIVE); INFLUENZA B NAA NEGATIVE (NEGATIVE)
[2021-12-25 17:55] LABS: CARBON DIOXIDE,CO2 21.5 mmol/L (21.0-32.0)
[2021-12-25] MEDS ORDERED: Sodium Chloride 0.9% 1,000 ML IV ONE (19:45)
[2021-12-25] MEDS ORDERED: Heparin Sodium 100 Units/ML 3 ML Syringe ONE (21:09)
[2021-12-25] MEDS ORDERED: Heparin Sodium 100 Units/ML 3 ML Syringe FLUSH STA (21:12)
[2021-12-25 21:27] VITALS: BP 111/72; PULSE 78
== END 2021-12-25 21:26 | disposition home or self-care (01) ==
LOC: MW.ED 16:11
DX: U07.1 COVID-19 (principal); Z13.9 Encounter for screening, unspecified; I10 Essential (primary) hypertension; I25.10 Atherosclerotic heart disease of native coronary artery without angina pectoris; E78.00 Pure hypercholesterolemia, unspecified; F41.9 Anxiety disorder, unspecified; F32.A Depression, unspecified; E66.9 Obesity, unspecified; Z68.31 Body mass index [BMI] 31.0-31.9, adult; Z79.899 Other long term (current) drug therapy; Z88.5 Allergy status to narcotic agent; Z91.048 Other nonmedicinal substance allergy status; Z86.59 Personal history of other mental and behavioral disorders
CPT/HCPCS: 0240U; 36415; 70450; 71045; 80053; 81003; 84484; 85025; 93005; 96360; 99285; J1642; J3490; J7030; 93010

== ENCOUNTER 2022-01-01 08:47 | Emergency (ER) | payer MEDICARE, BC ==
[2022-01-01] MEDS ORDERED: Sodium Chloride 0.9% 1,000 ML IV ONE (09:23)
[2022-01-01 09:41] LABS: CARBON DIOXIDE,CO2 23.1 mmol/L (21.0-32.0); POTASSIUM,K 3.4 mmol/L (3.5-5.1)
[2022-01-01] MEDS ORDERED: Acetaminophen 325 MG Tab PO ONE (16:58)
[2022-01-01] MEDS ORDERED: Heparin Sodium 100 Units/ML 3 ML Syringe ONE (17:25)
[2022-01-01] MEDS ORDERED: Heparin Sodium 100 Units/ML 3 ML Syringe FLUSH STA (17:33)
[2022-01-01 19:22] VITALS: BP 120/62; PULSE 90
== END 2022-01-01 17:19 | disposition home or self-care (01) ==
LOC: MW.ED 08:47
DX: I95.9 Hypotension, unspecified (principal); D64.9 Anemia, unspecified; D61.818 Other pancytopenia; I10 Essential (primary) hypertension; E78.00 Pure hypercholesterolemia, unspecified; E66.9 Obesity, unspecified; K21.9 Gastro-esophageal reflux disease without esophagitis; Z88.5 Allergy status to narcotic agent; Z88.8 Allergy status to other drugs, medicaments and biological substances; Z68.1 Body mass index [BMI] 19.9 or less, adult; Z79.899 Other long term (current) drug therapy
CPT/HCPCS: 36415; 36430; 80053; 85025; 86850; 86900; 86901; 86920; 93005; 96360; 99285; A9270; J1642; J7030; P9016; 93010; 99284

== ENCOUNTER 2022-01-08 09:06 | Emergency (ER) | payer MEDICARE, BC ==
[2022-01-08] MEDS ORDERED: Sodium Chloride 0.9% 1,000 ML IV ONE (09:35)
[2022-01-08 10:24] LABS: CARBON DIOXIDE,CO2 24.1 mmol/L (21.0-32.0); POTASSIUM,K 3.3 mmol/L (3.5-5.1)
[2022-01-08] MEDS ORDERED: Magnesium Oxide 400 MG Tab PO ONE (10:39)
[2022-01-08] MEDS ORDERED: Potassium Chloride 20 MEQ Tab.ER PO ONE (10:39)
[2022-01-08 12:34] VITALS: BP 115/66; PULSE 75
[2022-01-08] MEDS ORDERED: Heparin Sodium 100 Units/ML 3 ML Syringe ONE (12:42)
[2022-01-08] MEDS ORDERED: Heparin Sodium 100 Units/ML 3 ML Syringe FLUSH STA (12:43)
== END 2022-01-08 12:47 | disposition home or self-care (01) ==
LOC: MW.ED 09:06
DX: R42 Dizziness and giddiness (principal); I10 Essential (primary) hypertension; E66.9 Obesity, unspecified; Z68.30 Body mass index [BMI] 30.0-30.9, adult; Z88.5 Allergy status to narcotic agent; Z88.6 Allergy status to analgesic agent; Z91.018 Allergy to other foods; Z79.899 Other long term (current) drug therapy
CPT/HCPCS: 36415; 71045; 71275; 80053; 83735; 84484; 85025; 85610; 85730; 93005; 96360; 99285; A9270; J1642; J7030; 93010; 99284

== ENCOUNTER 2022-01-17 14:06 | Inpatient (IN) | payer OTHER, MEDICARE, BC ==
[2022-01-17] MEDS ORDERED: Sodium Chloride 0.9% 500 ML IV ONE (14:16)
[2022-01-17] MEDS ORDERED: cefTRIAXone 1 GM in Sodium Chloride 0.9% 50 ML IV ONE (15:18)
[2022-01-17 15:27] LABS: POTASSIUM,K 3.9 mmol/L (3.5-5.1)
[2022-01-17] MEDS ORDERED: Magnesium Sulfate (4.06 MEQ/ML) 5 GM/10 ML SDV IV STA (15:38)
[2022-01-17] MEDS ORDERED: Sodium Chloride 0.9% 500 ML IV SCH (15:45)
[2022-01-17] MEDS ORDERED: Magnesium Sulfate/Water 2 GM in Premix Bag 1 BAG IV ONE (16:07)
[2022-01-17 16:58] LABS: CARBON DIOXIDE,CO2 23.5 mmol/L (21.0-32.0); POTASSIUM,K 4.2 mmol/L (3.5-5.1)
[2022-01-17] MEDS ORDERED: Sodium Chloride 0.9% 1,000 ML IV SCH (21:30)
[2022-01-17] MEDS: Azithromycin 500 MG in Sodium Chloride 0.9% 250 ML IV SCH (22:44)
[2022-01-17] MEDS ORDERED: Potassium Chloride 20 MEQ Tab.ER PO SCH (23:15)
[2022-01-17] MEDS: Apixaban 5 MG Tab PO SCH (23:46)
[2022-01-18 06:49] LABS: CARBON DIOXIDE,CO2 24.2 mmol/L (21.0-32.0); POTASSIUM,K 3.9 mmol/L (3.5-5.1)
[2022-01-18] MEDS ORDERED: Acetaminophen 325 MG Tab PO PRN (07:00)
[2022-01-18] MEDS: Apixaban 5 MG Tab PO SCH ×2 (08:51→21:13)
[2022-01-18] MEDS ORDERED: Non-Formulary Medication 1 Each (Ondansetron [Ondansetron Odt] 8 MG Tab.Rapdis) PO PRN (09:18)
[2022-01-18] MEDS ORDERED: Midodrine 5 MG Tab PO PRN (09:18)
[2022-01-18] MEDS ORDERED: Albuterol/Ipratropium 4 GM Inhalation Spray INH PRN (09:18)
[2022-01-18] MEDS ORDERED: Hydrochlorothiazide 25 MG Tab PO SCH (09:30)
[2022-01-18] MEDS ORDERED: traMADol 50 MG Tab PO PRN (09:30)
[2022-01-18] MEDS ORDERED: Rosuvastatin 10 MG Tab PO SCH (09:30)
[2022-01-18] MEDS: Multivitamin Tab PO SCH (10:30)
[2022-01-18] MEDS: Folic Acid 1 MG Tab PO SCH (10:30)
[2022-01-18] MEDS: FOLIC PO SCH (11:39)
[2022-01-18] MEDS: COFFEE PO SCH (11:39)
[2022-01-18] MEDS: B6 PO SCH (11:39)
[2022-01-18] MEDS: [UNRECOGNIZED DRUG - OTHER] PO SCH (11:39)
[2022-01-18] MEDS: B12 PO SCH (11:39)
[2022-01-18] MEDS: Calcium Carbonate 500 MG Tablet PO SCH (11:39)
[2022-01-18] MEDS ORDERED: LORazepam 0.5 MG Tab PO PRN (14:03)
[2022-01-18] MEDS: Venlafaxine 75 MG Cap.ER PO SCH (15:45)
[2022-01-18] MEDS ORDERED: cefTRIAXone 1 GM in Sodium Chloride 0.9% 50 ML IV SCH (16:00)
[2022-01-18] MEDS: ESOMEPRAZOLE MAGNESIUM 20 MG PO SCH (18:09)
[2022-01-18] MEDS: Azithromycin 500 MG in Sodium Chloride 0.9% 250 ML IV SCH (21:15)
[2022-01-18] MEDS ORDERED: predniSONE 20 MG Tab PO ONE (21:54)
[2022-01-19] MEDS: ESOMEPRAZOLE MAGNESIUM 20 MG PO SCH (06:34)
[2022-01-19 06:41] LABS: CARBON DIOXIDE,CO2 24.9 mmol/L (21.0-32.0); POTASSIUM,K 3.4 mmol/L (3.5-5.1)
[2022-01-19] MEDS ORDERED: Potassium Chloride 20 MEQ Tab.ER PO ONE (08:00)
[2022-01-19] MEDS: Venlafaxine 75 MG Cap.ER PO SCH (08:29)
[2022-01-19] MEDS: Calcium Carbonate 500 MG Tablet PO SCH (08:29)
[2022-01-19] MEDS: Folic Acid 1 MG Tab PO SCH (08:29)
[2022-01-19] MEDS: Multivitamin Tab PO SCH (08:29)
[2022-01-19] MEDS: Apixaban 5 MG Tab PO SCH (08:29)
[2022-01-19] MEDS: [UNRECOGNIZED DRUG - OTHER] PO SCH (08:30)
[2022-01-19] MEDS: B6 PO SCH (08:30)
[2022-01-19] MEDS: FOLIC PO SCH (08:30)
[2022-01-19] MEDS: B12 PO SCH (08:30)
[2022-01-19] MEDS: COFFEE PO SCH (08:30)
[2022-01-19 10:08] VITALS: BP 99/68; PULSE 87
[2022-01-19] MEDS ORDERED: Rosuvastatin 10 MG Tab PO SCH (21:00)
== END 2022-01-19 13:20 | disposition home or self-care (01) | DRG 871 ==
LOC: MW.ED 14:06 → MW.MS 20:03
PROVIDERS: ADMIT Internal Medicine; ATTEND Internal Medicine
DX: A41.9 Sepsis, unspecified organism (principal); J18.9 Pneumonia, unspecified organism; J96.01 Acute respiratory failure with hypoxia; C34.90 Malignant neoplasm of unspecified part of unspecified bronchus or lung; J44.0 Chronic obstructive pulmonary disease with (acute) lower respiratory infection; I10 Essential (primary) hypertension; I25.10 Atherosclerotic heart disease of native coronary artery without angina pectoris; K21.9 Gastro-esophageal reflux disease without esophagitis; G47.33 Obstructive sleep apnea (adult) (pediatric); R65.20 Severe sepsis without septic shock; F41.9 Anxiety disorder, unspecified; F32.A Depression, unspecified; Z96.698 Presence of other orthopedic joint implants; Z96.653 Presence of artificial knee joint, bilateral; Z20.822 Contact with and (suspected) exposure to COVID-19; E66.9 Obesity, unspecified; Z79.899 Other long term (current) drug therapy; Z79.1 Long term (current) use of non-steroidal anti-inflammatories (NSAID); Z79.01 Long term (current) use of anticoagulants; Z86.711 Personal history of pulmonary embolism; Z68.35 Body mass index [BMI] 35.0-35.9, adult; Z88.5 Allergy status to narcotic agent; Z88.8 Allergy status to other drugs, medicaments and biological substances; Z97.3 Presence of spectacles and contact lenses; Z95.5 Presence of coronary angioplasty implant and graft; Z98.42 Cataract extraction status, left eye; Z98.41 Cataract extraction status, right eye; Z97.4 Presence of external hearing-aid; Z87.19 Personal history of other diseases of the digestive system
CPT/HCPCS: 36415; 71045; 71045-26; 80048; 80053; 81003; 83605; 83735; 83880; 84100; 84443; 84484; 85025; 85027; 85610; 87040; 92610-GN; 93005; 93306; 96361; 96365; 96367; 99285-25; A9270-GY; J0456; J0696; J3475; J7030; J7040; J7050; U0002

== ENCOUNTER 2024-06-16 11:37 | Emergency (ER) | payer OTHER ==
[2024-06-16 12:04] VITALS: BP 137/89; PULSE 93
[2024-06-16] MEDS ORDERED: Sodium Chloride 0.9% 10 ML Syringe FLUSH PRN (12:29)
[2024-06-16] MEDS ORDERED: Sodium Chloride 0.9% 2.5 ML Syringe FLUSH PRN (12:29)
[2024-06-16 13:34] LABS: MAGNESIUM 1.5 mg/dL (1.8-2.4)
[2024-06-16 13:53] LABS: INR 1.07 (0.86-1.11)
[2024-06-16 14:00] LABS: APPEARANCE,URINE CLEAR; BILIRUBIN,URINE NEGATIVE (NEGATIVE); COLOR,URINE YELLOW; GLUCOSE,URINE NEGATIVE (NEGATIVE); KETONES,URINE NEGATIVE (NEGATIVE); PH,URINE 7.5 (5.0-8.0); PROTEIN,URINE NEGATIVE (NEGATIVE)
[2024-06-16 14:01] LABS: BACTERIA,URINE FEW (NEGATIVE); EPITHELIAL CELLS,URINE RARE (NONE-FEW); LEUKOCYTE ESTERASE,URINE NEGATIVE (NEGATIVE); NITRITE,URINE NEGATIVE (NEGATIVE); OCCULT BLOOD,URINE NEGATIVE (NEGATIVE); RBC,URINE 0-2 (0-2/HPF); UROBILINOGEN,URINE 0.2 EU/dL (<2.0); WBC,URINE 0-2 (0-5/HPF)
[2024-06-16] MEDS: Magnesium Hydroxide 400 MG/5 ML Susp 30 ML Cup PO ONE (15:52)
[2024-06-19 10:06] LABS: IONIZED CA@PH7.4 1.4 mmol/L (1.09-1.30); IONIZED CALCIUM 1.37 mmol/L (1.09-1.30)
== END 2024-06-16 15:57 | disposition home or self-care (01) ==
LOC: MW.ED 11:37
DX: R41.0 Disorientation, unspecified (principal); S09.90XA Unspecified injury of head, initial encounter; I10 Essential (primary) hypertension; E78.00 Pure hypercholesterolemia, unspecified; K21.9 Gastro-esophageal reflux disease without esophagitis; E03.9 Hypothyroidism, unspecified; Z95.5 Presence of coronary angioplasty implant and graft; E66.9 Obesity, unspecified; Z79.899 Other long term (current) drug therapy; Z79.01 Long term (current) use of anticoagulants; Z68.32 Body mass index [BMI] 32.0-32.9, adult; Z88.5 Allergy status to narcotic agent; Z91.048 Other nonmedicinal substance allergy status; Z75.8 Other problems related to medical facilities and other health care; W01.198A Fall on same level from slipping, tripping and stumbling with subsequent striking against other object, initial encounter; Y92.59 Other trade areas as the place of occurrence of the external cause
CPT/HCPCS: 70450; 81001; 82330; 83690; 83735; 84100; 85610; 99285; A9270; J1642; 36415

== ENCOUNTER 2024-06-25 16:09 | Emergency (ER) | payer OTHER ==
[2024-06-25 16:42] LABS: HEMATOCRIT 38.8 % (42.0-52.0); MEAN CORPUSCULAR HEMOGLOBIN 31.9 pg (28.0-32.0); MEAN CORPUSCULAR HGB CONC 33.5 g/dL (32.0-36.0); MEAN CORPUSCULAR VOLUME 95.1 fL (83.0-99.0); MEAN PLATELET VOLUME 9.8 fL (9.4-12.4); PLATELET COUNT,PLT 198 K/uL (150-400); RED BLOOD CELL COUNT 4.08 M/uL (4.52-5.90); WHITE BLOOD CELL COUNT,WBC 10.32 K/uL (3.9-11.3)
[2024-06-25 16:59] LABS: PH,VENOUS 7.42 (7.31-7.41)
[2024-06-25 17:01] LABS: INR 1.04 (0.86-1.11)
[2024-06-25 17:17] LABS: LYMPHOCYTES ABSOLUTE MAN 0.83 K/uL (1.00-4.80); LYMPHOCYTES PERCENT MAN 8 % (24-44); MONOCYTES ABSOLUTE MAN 0.52 K/uL (0.00-0.80); MONOCYTES PERCENT MAN 5 % (0-8); SEG NEUTROPHILS ABSOLUTE MAN 8.98 K/uL (1.80-7.70); SEG NEUTROPHILS PERCENT MAN 87 % (41-71)
[2024-06-25 17:29] LABS: A/G RATIO 0.8 (0.9-1.6); ALBUMIN 2.5 g/dL (3.4-5.0); BILIRUBIN TOTAL 0.3 mg/dL (0.2-1.0); CARBON DIOXIDE,CO2 25.1 mmol/L (21.0-32.0); EST CRCL DRUG DOSING (CG) 76.73 mL/min; POTASSIUM,K 4.4 mmol/L (3.5-5.1); PROTEIN TOTAL,TP 5.7 g/dL (6.4-8.2)
[2024-06-25 18:56] LABS: APPEARANCE,URINE CLEAR; BILIRUBIN,URINE NEGATIVE (NEGATIVE); COLOR,URINE YELLOW; GLUCOSE,URINE NEGATIVE (NEGATIVE); KETONES,URINE NEGATIVE (NEGATIVE); LEUKOCYTE ESTERASE,URINE NEGATIVE (NEGATIVE); NITRITE,URINE NEGATIVE (NEGATIVE); OCCULT BLOOD,URINE NEGATIVE (NEGATIVE); PROTEIN,URINE NEGATIVE (NEGATIVE); UROBILINOGEN,URINE 0.2 EU/dL (<2.0)
[2024-06-25] MEDS: Sodium Chloride 0.9% 500 ML IV SCH (19:08)
[2024-06-25] MEDS: Iopamidol 755 MG/ML 500 ML Multipack Bottle IVPUSH ONE (19:32)
[2024-06-25 22:09] VITALS: BP 123/84; PULSE 80
== END 2024-06-25 21:57 | disposition home or self-care (01) ==
LOC: MW.ED 16:09
DX: R53.1 Weakness (principal); R06.02 Shortness of breath; R68.83 Chills (without fever); I25.10 Atherosclerotic heart disease of native coronary artery without angina pectoris; I10 Essential (primary) hypertension; K21.9 Gastro-esophageal reflux disease without esophagitis; E78.00 Pure hypercholesterolemia, unspecified; E66.9 Obesity, unspecified; Z68.28 Body mass index [BMI] 28.0-28.9, adult; Z95.5 Presence of coronary angioplasty implant and graft; Z85.118 Personal history of other malignant neoplasm of bronchus and lung; Z88.5 Allergy status to narcotic agent; Z91.048 Other nonmedicinal substance allergy status; Z79.01 Long term (current) use of anticoagulants; Z79.51 Long term (current) use of inhaled steroids; Z79.899 Other long term (current) drug therapy
CPT/HCPCS: 36415; 70450; 71045; 71260; 74177; 80053; 81003; 82803; 83605; 83735; 83880; 84484; 85025; 85610; 87428; 93005; 96360; 99285; J7040; Q9967

== ENCOUNTER 2024-07-16 16:00 | Emergency (ER) | payer OTHER | END 2024-07-16 16:52 | disposition left against medical advice (07) | LOC: MW.ED 16:00 | DX: Z53.21 Procedure and treatment not carried out due to patient leaving prior to being seen by health care provider (principal) ==

== ENCOUNTER 2024-07-17 04:24 | Emergency (ER) | payer OTHER ==
[2024-07-17] MEDS: Acetaminophen 500 MG Tab PO ONE (05:14)
[2024-07-17] MEDS: Iopamidol 755 MG/ML 500 ML Multipack Bottle IVPUSH ONE (05:28)
[2024-07-17 05:49] LABS: WHITE BLOOD CELL COUNT,WBC 3.31 K/uL (3.9-11.3)
[2024-07-17 05:50] LABS: EOSINOPHILS ABSOLUTE AUTO 0.17 K/uL (0.00-0.45); EOSINOPHILS PERCENT AUTO 5.1 % (0.0-6.0); HEMATOCRIT 37.6 % (42.0-52.0); IMMATURE GRAN ABSOLUTE AUTO 0.03 K/uL (0.00-0.05); IMMATURE GRAN PERCENT AUTO 0.9 % (0.0-0.4); LYMPHOCYTES ABSOLUTE AUTO 0.74 K/uL (1.00-4.80); LYMPHOCYTES PERCENT AUTO 22.4 % (24.0-44.0); MEAN CORPUSCULAR HEMOGLOBIN 32.4 pg (28.0-32.0); MEAN CORPUSCULAR HGB CONC 31.9 g/dL (32.0-36.0); MEAN CORPUSCULAR VOLUME 101.6 fL (83.0-99.0); MEAN PLATELET VOLUME 10.6 fL (9.4-12.4); MONOCYTES ABSOLUTE AUTO 0.39 K/uL (0.00-0.80); MONOCYTES PERCENT AUTO 11.8 % (0.0-8.0); NEUTROPHILS ABSOLUTE AUTO 1.98 K/uL (1.80-7.70); NEUTROPHILS PERCENT AUTO 59.8 % (41.0-71.0); PLATELET COUNT,PLT 106 K/uL (150-400)
[2024-07-17 06:00] LABS: APPEARANCE,URINE CLEAR; BILIRUBIN,URINE NEGATIVE (NEGATIVE); COLOR,URINE YELLOW; GLUCOSE,URINE NEGATIVE (NEGATIVE); KETONES,URINE NEGATIVE (NEGATIVE); LEUKOCYTE ESTERASE,URINE NEGATIVE (NEGATIVE); NITRITE,URINE NEGATIVE (NEGATIVE); OCCULT BLOOD,URINE NEGATIVE (NEGATIVE); PROTEIN,URINE NEGATIVE (NEGATIVE)
[2024-07-17 06:04] LABS: INR 0.95 (0.86-1.11)
[2024-07-17 06:16] LABS: A/G RATIO 0.8 (0.9-1.6); ALBUMIN 2.3 g/dL (3.4-5.0); BILIRUBIN TOTAL 0.4 mg/dL (0.2-1.0); CARBON DIOXIDE,CO2 26.1 mmol/L (21.0-32.0); CREATININE 1.1 mg/dL (0.8-1.3); EST CRCL DRUG DOSING (CG) 69.75 mL/min; POTASSIUM,K 3.5 mmol/L (3.5-5.1); PROTEIN TOTAL,TP 5.2 g/dL (6.4-8.2)
[2024-07-17 06:18] VITALS: PULSE 78
[2024-07-17] MEDS: Lidocaine 4% Patch TOP ONE (06:23)
[2024-07-17 07:13] VITALS: BP 110/76
== END 2024-07-17 07:10 | disposition home or self-care (01) ==
LOC: MW.ED 04:24
DX: M54.50 Low back pain, unspecified (principal); I10 Essential (primary) hypertension; E78.00 Pure hypercholesterolemia, unspecified; Z95.5 Presence of coronary angioplasty implant and graft; Z86.73 Personal history of transient ischemic attack (TIA), and cerebral infarction without residual deficits; Z86.16 Personal history of COVID-19; Z88.5 Allergy status to narcotic agent; Z91.048 Other nonmedicinal substance allergy status; Z79.899 Other long term (current) drug therapy; Z87.891 Personal history of nicotine dependence
CPT/HCPCS: 36415; 72131; 74177; 80053; 81003; 85025; 85610; 99284; A9270; Q9967

== ENCOUNTER 2024-07-18 14:30 | Emergency (ER) | payer OTHER ==
[2024-07-18 15:15] LABS: BASOPHILS ABSOLUTE AUTO 0.01 K/uL (0.00-0.20); BASOPHILS PERCENT AUTO 0.2 % (0.0-1.0); EOSINOPHILS ABSOLUTE AUTO 0.17 K/uL (0.00-0.45); EOSINOPHILS PERCENT AUTO 2.7 % (0.0-6.0); HEMATOCRIT 38.5 % (42.0-52.0); HEMOGLOBIN 12.5 g/dL (14.0-18.0); IMMATURE GRAN ABSOLUTE AUTO 0.02 K/uL (0.00-0.05); IMMATURE GRAN PERCENT AUTO 0.3 % (0.0-0.4); LYMPHOCYTES ABSOLUTE AUTO 0.73 K/uL (1.00-4.80); LYMPHOCYTES PERCENT AUTO 11.6 % (24.0-44.0); MEAN CORPUSCULAR HEMOGLOBIN 32.2 pg (28.0-32.0); MEAN CORPUSCULAR HGB CONC 32.5 g/dL (32.0-36.0); MEAN CORPUSCULAR VOLUME 99.2 fL (83.0-99.0); MEAN PLATELET VOLUME 10.1 fL (9.4-12.4); MONOCYTES ABSOLUTE AUTO 0.56 K/uL (0.00-0.80); MONOCYTES PERCENT AUTO 8.9 % (0.0-8.0); NEUTROPHILS ABSOLUTE AUTO 4.79 K/uL (1.80-7.70); NEUTROPHILS PERCENT AUTO 76.3 % (41.0-71.0); PLATELET COUNT,PLT 105 K/uL (150-400); RED BLOOD CELL COUNT 3.88 M/uL (4.52-5.90); WHITE BLOOD CELL COUNT,WBC 6.28 K/uL (3.9-11.3)
[2024-07-18] MEDS: Dicyclomine 10 MG Cap PO ONE (15:26)
[2024-07-18] MEDS: Alum Hydrox/Mag Hydrox/Simeth 15 ML, Lidocaine 2% 5 ML PO ONE (15:26)
[2024-07-18 15:35] LABS: A/G RATIO 0.8 (0.9-1.6); ALBUMIN 2.5 g/dL (3.4-5.0); BILIRUBIN TOTAL 0.6 mg/dL (0.2-1.0); CALCIUM 8.8 mg/dL (8.5-10.1); CARBON DIOXIDE,CO2 25.6 mmol/L (21.0-32.0); CREATININE 1.3 mg/dL (0.8-1.3); EST CRCL DRUG DOSING (CG) 57.5 mL/min; PROTEIN TOTAL,TP 5.8 g/dL (6.4-8.2)
[2024-07-18] MEDS: HYDROmorphone 2 MG/ML Syringe IM ONE (15:40)
[2024-07-18 16:00] LABS: APPEARANCE,URINE CLEAR; BILIRUBIN,URINE NEGATIVE (NEGATIVE); COLOR,URINE YELLOW; GLUCOSE,URINE NEGATIVE (NEGATIVE); KETONES,URINE NEGATIVE (NEGATIVE); LEUKOCYTE ESTERASE,URINE NEGATIVE (NEGATIVE); NITRITE,URINE NEGATIVE (NEGATIVE); OCCULT BLOOD,URINE NEGATIVE (NEGATIVE); PH,URINE 7.5 (5.0-8.0); PROTEIN,URINE NEGATIVE (NEGATIVE)
[2024-07-18 16:26] VITALS: BP 92/61; PULSE 95
== END 2024-07-18 16:25 | disposition home or self-care (01) ==
LOC: MW.ED 14:30
DX: R10.84 Generalized abdominal pain (principal); I10 Essential (primary) hypertension; E78.00 Pure hypercholesterolemia, unspecified; E66.9 Obesity, unspecified; Z79.899 Other long term (current) drug therapy; Z79.01 Long term (current) use of anticoagulants; Z88.5 Allergy status to narcotic agent; Z91.048 Other nonmedicinal substance allergy status; Z75.8 Other problems related to medical facilities and other health care; Z68.29 Body mass index [BMI] 29.0-29.9, adult
CPT/HCPCS: 36415; 71045; 80053; 81003; 83690; 85025; 99284; A9270

== ENCOUNTER 2024-07-23 14:46 | Inpatient (IN) | payer MEDICARE, BC ==
[2024-07-23] MEDS: LORazepam 2 MG/ML SDV IVPUSH STA (15:45)
[2024-07-23 15:56] LABS: HEMATOCRIT 36.7 % (42.0-52.0); HEMOGLOBIN 12.2 g/dL (14.0-18.0); MEAN CORPUSCULAR HEMOGLOBIN 32.5 pg (28.0-32.0); MEAN CORPUSCULAR HGB CONC 33.2 g/dL (32.0-36.0); MEAN CORPUSCULAR VOLUME 97.9 fL (83.0-99.0); MEAN PLATELET VOLUME 9.8 fL (9.4-12.4); PLATELET COUNT,PLT 142 K/uL (150-400); RED BLOOD CELL COUNT 3.75 M/uL (4.52-5.90); WHITE BLOOD CELL COUNT,WBC 4.73 K/uL (3.9-11.3)
[2024-07-23 16:11] LABS: INR 1.03 (0.86-1.11)
[2024-07-23] MEDS: droPERidol 2.5 MG/ML SDV IVPUSH STA (16:14)
[2024-07-23 16:21] LABS: LYMPHOCYTES ABSOLUTE MAN 1.09 K/uL (1.00-4.80); LYMPHOCYTES PERCENT MAN 23 % (24-44); SEG NEUTROPHILS PERCENT MAN 55 % (41-71)
[2024-07-23 16:22] LABS: EOSINOPHILS ABSOLUTE MAN 0.14 K/uL (0.00-0.45); EOSINOPHILS PERCENT MAN 3 % (0-6); MONOCYTES ABSOLUTE MAN 0.85 K/uL (0.00-0.80); MONOCYTES PERCENT MAN 18 % (0-8)
[2024-07-23] MEDS: Iopamidol 755 MG/ML 500 ML Multipack Bottle IVPUSH STA (16:29)
[2024-07-23 16:44] LABS: A/G RATIO 0.9 (0.9-1.6); ALBUMIN 2.8 g/dL (3.4-5.0); BILIRUBIN TOTAL 0.6 mg/dL (0.2-1.0); CALCIUM 9.3 mg/dL (8.5-10.1); CARBON DIOXIDE,CO2 26.1 mmol/L (21.0-32.0); CREATININE 1.3 mg/dL (0.8-1.3); EST CRCL DRUG DOSING (CG) 57.5 mL/min; MAGNESIUM 1.8 mg/dL (1.8-2.4); POTASSIUM,K 4.4 mmol/L (3.5-5.1)
[2024-07-23 17:50] LABS: APPEARANCE,URINE CLEAR; BILIRUBIN,URINE NEGATIVE (NEGATIVE); COLOR,URINE YELLOW; GLUCOSE,URINE NEGATIVE (NEGATIVE); KETONES,URINE NEGATIVE (NEGATIVE); LEUKOCYTE ESTERASE,URINE NEGATIVE (NEGATIVE); NITRITE,URINE NEGATIVE (NEGATIVE); OCCULT BLOOD,URINE NEGATIVE (NEGATIVE); PROTEIN,URINE NEGATIVE (NEGATIVE)
[2024-07-23 19:57] LABS: LACTIC ACID 1.3 mmol/L (0.4-2.0)
[2024-07-23 20:21] LABS: TSH ULTRASENSITIVE 8.32 uIU/mL (0.36-3.74)
[2024-07-23 20:38] LABS: T4 FREE 0.92 ng/dL (0.76-1.46)
[2024-07-23] MEDS: Docusate Sodium 100 MG Cap PO SCH (21:42)
[2024-07-23] MEDS: LORazepam 2 MG/ML SDV IVPUSH PRN (22:13)
[2024-07-24] MEDS: traMADol 50 MG Tab PO PRN (01:38)
[2024-07-24] MEDS: LORazepam 2 MG/ML SDV IVPUSH PRN (05:30)
[2024-07-24 08:21] LABS: BASOPHILS ABSOLUTE AUTO 0.03 K/uL (0.00-0.20); BASOPHILS PERCENT AUTO 0.7 % (0.0-1.0); EOSINOPHILS ABSOLUTE AUTO 0.13 K/uL (0.00-0.45); EOSINOPHILS PERCENT AUTO 2.9 % (0.0-6.0); HEMATOCRIT 36.9 % (42.0-52.0); HEMOGLOBIN 12.2 g/dL (14.0-18.0); IMMATURE GRAN ABSOLUTE AUTO 0.06 K/uL (0.00-0.05); IMMATURE GRAN PERCENT AUTO 1.3 % (0.0-0.4); MEAN CORPUSCULAR HEMOGLOBIN 32.3 pg (28.0-32.0); MEAN CORPUSCULAR HGB CONC 33.1 g/dL (32.0-36.0); MEAN CORPUSCULAR VOLUME 97.6 fL (83.0-99.0); MEAN PLATELET VOLUME 9.4 fL (9.4-12.4); NEUTROPHILS ABSOLUTE AUTO 2.48 K/uL (1.80-7.70); NEUTROPHILS PERCENT AUTO 55.1 % (41.0-71.0); PLATELET COUNT,PLT 149 K/uL (150-400); RED BLOOD CELL COUNT 3.78 M/uL (4.52-5.90)
[2024-07-24] MEDS: Polyethylene Glycol 3350 Powder 17 GM Packet PO SCH (08:56)
[2024-07-24 08:58] LABS: A/G RATIO 0.8 (0.9-1.6); ALBUMIN 2.8 g/dL (3.4-5.0); BILIRUBIN TOTAL 0.8 mg/dL (0.2-1.0); C-REACTIVE PROTEIN 2.33 mg/dL (<0.3); CALCIUM 9.2 mg/dL (8.5-10.1); CARBON DIOXIDE,CO2 26.1 mmol/L (21.0-32.0); CREATININE 1.3 mg/dL (0.8-1.3); EST CRCL DRUG DOSING (CG) 55.97 mL/min; PHOSPHORUS 3.8 mg/dL (2.6-4.7); POTASSIUM,K 3.9 mmol/L (3.5-5.1); PROTEIN TOTAL,TP 6.3 g/dL (6.4-8.2)
[2024-07-24] MEDS ORDERED: Haloperidol 1 MG Tab PO PRN (15:11)
[2024-07-24] MEDS: Dicyclomine 10 MG Cap PO SCH (15:44)
[2024-07-24] MEDS: Enoxaparin 40 MG/0.4 ML Syringe SUBCUT SCH (15:44)
[2024-07-24] MEDS: Montelukast 10 MG Tab PO SCH (20:08)
[2024-07-24] MEDS: Donepezil 5 MG Tab PO SCH (20:09)
[2024-07-25 08:15] LABS: BASOPHILS ABSOLUTE AUTO 0.02 K/uL (0.00-0.20); BASOPHILS PERCENT AUTO 0.5 % (0.0-1.0); EOSINOPHILS ABSOLUTE AUTO 0.08 K/uL (0.00-0.45); EOSINOPHILS PERCENT AUTO 2.2 % (0.0-6.0); HEMATOCRIT 33.2 % (42.0-52.0); HEMOGLOBIN 11.2 g/dL (14.0-18.0); IMMATURE GRAN ABSOLUTE AUTO 0.05 K/uL (0.00-0.05); IMMATURE GRAN PERCENT AUTO 1.4 % (0.0-0.4); LYMPHOCYTES ABSOLUTE AUTO 0.56 K/uL (1.00-4.80); LYMPHOCYTES PERCENT AUTO 15.2 % (24.0-44.0); MEAN CORPUSCULAR HEMOGLOBIN 32.7 pg (28.0-32.0); MEAN CORPUSCULAR HGB CONC 33.7 g/dL (32.0-36.0); MEAN CORPUSCULAR VOLUME 96.8 fL (83.0-99.0); MEAN PLATELET VOLUME 9.9 fL (9.4-12.4); MONOCYTES ABSOLUTE AUTO 0.73 K/uL (0.00-0.80); MONOCYTES PERCENT AUTO 19.8 % (0.0-8.0); NEUTROPHILS ABSOLUTE AUTO 2.24 K/uL (1.80-7.70); NEUTROPHILS PERCENT AUTO 60.9 % (41.0-71.0); PLATELET COUNT,PLT 134 K/uL (150-400); RED BLOOD CELL COUNT 3.43 M/uL (4.52-5.90); WHITE BLOOD CELL COUNT,WBC 3.68 K/uL (3.9-11.3)
[2024-07-25 08:39] LABS: A/G RATIO 0.8 (0.9-1.6); ALBUMIN 2.4 g/dL (3.4-5.0); BILIRUBIN TOTAL 0.7 mg/dL (0.2-1.0); CALCIUM 8.3 mg/dL (8.5-10.1); CARBON DIOXIDE,CO2 23.6 mmol/L (21.0-32.0); CREATININE 1.2 mg/dL (0.8-1.3); EST CRCL DRUG DOSING (CG) 60.64 mL/min; MAGNESIUM 1.9 mg/dL (1.8-2.4); POTASSIUM,K 3.2 mmol/L (3.5-5.1); PROTEIN TOTAL,TP 5.4 g/dL (6.4-8.2)
[2024-07-25] MEDS: Potassium Chloride 20 MEQ Tab.ER PO SCH ×2 (15:31→21:22)
[2024-07-25] MEDS ORDERED: Piperacillin/Tazobactam 4.5 GM in Sodium Chloride 0.9% 100 ML IV SCH (19:30)
[2024-07-25] MEDS: Piperacillin/Tazobactam 4.5 GM in Sodium Chloride 0.9% 100 ML IV SCH (20:45)
[2024-07-25] MEDS: Potassium Chloride 10 MEQ in Premix Bag 1 BAG IV PRN (20:46)
[2024-07-26 06:48] LABS: HEMATOCRIT 32.6 % (42.0-52.0); MEAN CORPUSCULAR HGB CONC 33.7 g/dL (32.0-36.0); MEAN CORPUSCULAR VOLUME 97.9 fL (83.0-99.0); PLATELET COUNT,PLT 163 K/uL (150-400); RED BLOOD CELL COUNT 3.33 M/uL (4.52-5.90)
[2024-07-26 07:07] LABS: A/G RATIO 0.7 (0.9-1.6); ALBUMIN 2.3 g/dL (3.4-5.0); BILIRUBIN TOTAL 0.8 mg/dL (0.2-1.0); CALCIUM 8.4 mg/dL (8.5-10.1); CREATININE 1.2 mg/dL (0.8-1.3); EST CRCL DRUG DOSING (CG) 60.64 mL/min; MAGNESIUM 1.7 mg/dL (1.8-2.4); POTASSIUM,K 3.3 mmol/L (3.5-5.1); PROTEIN TOTAL,TP 5.4 g/dL (6.4-8.2)
[2024-07-26 07:09] LABS: BASOPHILS ABSOLUTE MAN 0.06 K/uL (0.00-0.20); BASOPHILS PERCENT MAN 2 % (0-1); EOSINOPHILS ABSOLUTE MAN 0.09 K/uL (0.00-0.45); EOSINOPHILS PERCENT MAN 3 % (0-6); LYMPHOCYTES ABSOLUTE MAN 0.62 K/uL (1.00-4.80); LYMPHOCYTES PERCENT MAN 20 % (24-44); MONOCYTES ABSOLUTE MAN 0.37 K/uL (0.00-0.80); MONOCYTES PERCENT MAN 12 % (0-8); SEG NEUTROPHILS ABSOLUTE MAN 1.95 K/uL (1.80-7.70); SEG NEUTROPHILS PERCENT MAN 63 % (41-71)
[2024-07-26] MEDS: Potassium Chloride 20 MEQ Tab.ER PO ONE (07:56)
[2024-07-26] MEDS: Potassium Chloride 10 MEQ in Premix Bag 1 BAG IV SCH (09:54)
[2024-07-26] MEDS: Haloperidol Lactate 5 MG/ML SDV IM PRN (14:26)
[2024-07-26] MEDS: Piperacillin/Tazobactam 4.5 GM in Sodium Chloride 0.9% 100 ML IV SCH (15:35)
[2024-07-26] MEDS: Magnesium Sulf/Wat 2 GM/50 mL 2 GM in Premix Bag 1 BAG IV ONE (17:07)
[2024-07-27] MEDS ORDERED: Sodium Chloride 0.9% 10 ML Syringe FLUSH PRN (09:15)
[2024-07-27] MEDS ORDERED: Sodium Chloride 0.9% 2.5 ML Syringe FLUSH PRN (09:15)
[2024-07-27 09:26] LABS: HEMATOCRIT 33.5 % (42.0-52.0); HEMOGLOBIN 11.1 g/dL (14.0-18.0); MEAN CORPUSCULAR HEMOGLOBIN 33.1 pg (28.0-32.0); MEAN CORPUSCULAR HGB CONC 33.1 g/dL (32.0-36.0); MEAN PLATELET VOLUME 9.8 fL (9.4-12.4); PLATELET COUNT,PLT 151 K/uL (150-400); RED BLOOD CELL COUNT 3.35 M/uL (4.52-5.90); WHITE BLOOD CELL COUNT,WBC 3.02 K/uL (3.9-11.3)
[2024-07-27] MEDS: Azithromycin 500 MG in Sodium Chloride 0.9% 250 ML IV SCH (10:14)
[2024-07-27] MEDS: Pantoprazole 40 MG in Sodium Chloride 0.9% 10 ML IVPUSH SCH (10:17)
[2024-07-27] MEDS: cefTRIAXone 1 GM in Sodium Chloride 0.9% 50 ML IV SCH (10:59)
[2024-07-27] MEDS: risperiDONE 1 MG Tab PO SCH (11:06)
[2024-07-27 12:10] LABS: CALCIUM 8.1 mg/dL (8.5-10.1); CARBON DIOXIDE,CO2 22.7 mmol/L (21.0-32.0); CREATININE 1.1 mg/dL (0.8-1.3); EST CRCL DRUG DOSING (CG) 66.15 mL/min; MAGNESIUM 2.1 mg/dL (1.8-2.4); POTASSIUM,K 3.6 mmol/L (3.5-5.1)
[2024-07-27 14:17] LABS: BAND ABSOLUTE MAN 0.45; EOSINOPHILS ABSOLUTE MAN 0.09 K/uL (0.00-0.45); EOSINOPHILS PERCENT MAN 3 % (0-6); LYMPHOCYTES ABSOLUTE MAN 0.45 K/uL (1.00-4.80); LYMPHOCYTES PERCENT MAN 15 % (24-44); MONOCYTES PERCENT MAN 20 % (0-8)
[2024-07-27 14:18] LABS: SEG NEUTROPHILS ABSOLUTE MAN 1.87 K/uL (1.80-7.70); SEG NEUTROPHILS PERCENT MAN 62 % (41-71)
[2024-07-27] MEDS: QUEtiapine 25 MG Tab PO SCH (16:57)
[2024-07-27] MEDS: LORazepam 2 MG/ML SDV IVPUSH PRN (18:59)
[2024-07-27] MEDS ORDERED: LORazepam 2 MG/ML SDV IVPUSH PRN (19:43)
[2024-07-27] MEDS: Apixaban 5 MG Tab PO SCH (22:08)
[2024-07-28 05:34] LABS: HEMATOCRIT 34.8 % (42.0-52.0); HEMOGLOBIN 11.4 g/dL (14.0-18.0); MEAN CORPUSCULAR HEMOGLOBIN 32.7 pg (28.0-32.0); MEAN CORPUSCULAR HGB CONC 32.8 g/dL (32.0-36.0); MEAN CORPUSCULAR VOLUME 99.7 fL (83.0-99.0); MEAN PLATELET VOLUME 9.6 fL (9.4-12.4); PLATELET COUNT,PLT 168 K/uL (150-400); RED BLOOD CELL COUNT 3.49 M/uL (4.52-5.90); WHITE BLOOD CELL COUNT,WBC 3.09 K/uL (3.9-11.3)
[2024-07-28 05:54] LABS: CALCIUM 8.4 mg/dL (8.5-10.1); CARBON DIOXIDE,CO2 21.3 mmol/L (21.0-32.0); EST CRCL DRUG DOSING (CG) 72.76 mL/min; MAGNESIUM 1.9 mg/dL (1.8-2.4); PHOSPHORUS 2.4 mg/dL (2.6-4.7); POTASSIUM,K 3.3 mmol/L (3.5-5.1)
[2024-07-28 06:09] LABS: EOSINOPHILS ABSOLUTE MAN 0.09 K/uL (0.00-0.45); EOSINOPHILS PERCENT MAN 3 % (0-6); LYMPHOCYTES ABSOLUTE MAN 0.68 K/uL (1.00-4.80); LYMPHOCYTES PERCENT MAN 22 % (24-44); MONOCYTES ABSOLUTE MAN 0.46 K/uL (0.00-0.80); MONOCYTES PERCENT MAN 15 % (0-8); SEG NEUTROPHILS ABSOLUTE MAN 1.85 K/uL (1.80-7.70); SEG NEUTROPHILS PERCENT MAN 60 % (41-71)
[2024-07-28] MEDS: Venlafaxine 75 MG Cap.ER PO SCH (08:01)
[2024-07-28] MEDS: QUEtiapine 25 MG Tab PO SCH (10:11)
[2024-07-28] MEDS: Potassium Phosphates 15 MMOLE in Sodium Chloride 0.9% 250 ML IV ONE (11:03)
[2024-07-28] MEDS: LORazepam 2 MG/ML SDV IVPUSH ONE (12:50)
[2024-07-29] MEDS: Acetaminophen 325 MG Tab PO PRN (01:50)
[2024-07-29 05:52] LABS: HEMATOCRIT 34.6 % (42.0-52.0); HEMOGLOBIN 11.2 g/dL (14.0-18.0); MEAN CORPUSCULAR HEMOGLOBIN 32.1 pg (28.0-32.0); MEAN CORPUSCULAR HGB CONC 32.4 g/dL (32.0-36.0); MEAN CORPUSCULAR VOLUME 99.1 fL (83.0-99.0); MEAN PLATELET VOLUME 9.5 fL (9.4-12.4); PLATELET COUNT,PLT 170 K/uL (150-400); RED BLOOD CELL COUNT 3.49 M/uL (4.52-5.90); WHITE BLOOD CELL COUNT,WBC 2.99 K/uL (3.9-11.3)
[2024-07-29 06:14] LABS: CALCIUM 8.2 mg/dL (8.5-10.1); CARBON DIOXIDE,CO2 19.7 mmol/L (21.0-32.0); EST CRCL DRUG DOSING (CG) 72.76 mL/min; PHOSPHORUS 2.7 mg/dL (2.6-4.7); POTASSIUM,K 3.5 mmol/L (3.5-5.1)
[2024-07-29 06:33] LABS: BASOPHILS ABSOLUTE MAN 0.03 K/uL (0.00-0.20); BASOPHILS PERCENT MAN 1 % (0-1); EOSINOPHILS ABSOLUTE MAN 0.06 K/uL (0.00-0.45); EOSINOPHILS PERCENT MAN 2 % (0-6); LYMPHOCYTES PERCENT MAN 20 % (24-44); MONOCYTES ABSOLUTE MAN 0.42 K/uL (0.00-0.80); MONOCYTES PERCENT MAN 14 % (0-8); SEG NEUTROPHILS ABSOLUTE MAN 1.88 K/uL (1.80-7.70); SEG NEUTROPHILS PERCENT MAN 63 % (41-71)
[2024-07-31] MEDS: Melatonin 3 MG Tab PO PRN (01:46)
[2024-07-31 05:40] LABS: BASOPHILS ABSOLUTE AUTO 0.04 K/uL (0.00-0.20); BASOPHILS PERCENT AUTO 0.8 % (0.0-1.0); EOSINOPHILS ABSOLUTE AUTO 0.17 K/uL (0.00-0.45); EOSINOPHILS PERCENT AUTO 3.6 % (0.0-6.0); HEMOGLOBIN 11.5 g/dL (14.0-18.0); IMMATURE GRAN ABSOLUTE AUTO 0.05 K/uL (0.00-0.05); IMMATURE GRAN PERCENT AUTO 1.1 % (0.0-0.4); LYMPHOCYTES ABSOLUTE AUTO 0.63 K/uL (1.00-4.80); LYMPHOCYTES PERCENT AUTO 13.4 % (24.0-44.0); MEAN CORPUSCULAR HEMOGLOBIN 32.8 pg (28.0-32.0); MEAN CORPUSCULAR HGB CONC 32.9 g/dL (32.0-36.0); MEAN CORPUSCULAR VOLUME 99.7 fL (83.0-99.0); MEAN PLATELET VOLUME 9.7 fL (9.4-12.4); MONOCYTES ABSOLUTE AUTO 0.83 K/uL (0.00-0.80); MONOCYTES PERCENT AUTO 17.6 % (0.0-8.0); NEUTROPHILS ABSOLUTE AUTO 2.99 K/uL (1.80-7.70); NEUTROPHILS PERCENT AUTO 63.5 % (41.0-71.0); PLATELET COUNT,PLT 189 K/uL (150-400); RED BLOOD CELL COUNT 3.51 M/uL (4.52-5.90); WHITE BLOOD CELL COUNT,WBC 4.71 K/uL (3.9-11.3)
[2024-07-31 06:05] LABS: CALCIUM 8.2 mg/dL (8.5-10.1); CARBON DIOXIDE,CO2 23.4 mmol/L (21.0-32.0); CREATININE 1.1 mg/dL (0.8-1.3); EST CRCL DRUG DOSING (CG) 66.15 mL/min; MAGNESIUM 1.8 mg/dL (1.8-2.4); POTASSIUM,K 3.7 mmol/L (3.5-5.1)
[2024-08-01] MEDS: Pantoprazole 40 MG Tab.CR PO SCH (06:36)
[2024-08-02 05:51] LABS: HEMATOCRIT 33.2 % (42.0-52.0); MEAN CORPUSCULAR HEMOGLOBIN 32.7 pg (28.0-32.0); MEAN CORPUSCULAR HGB CONC 33.1 g/dL (32.0-36.0); MEAN CORPUSCULAR VOLUME 98.8 fL (83.0-99.0); MEAN PLATELET VOLUME 10.1 fL (9.4-12.4); PLATELET COUNT,PLT 219 K/uL (150-400); RED BLOOD CELL COUNT 3.36 M/uL (4.52-5.90); WHITE BLOOD CELL COUNT,WBC 3.86 K/uL (3.9-11.3)
[2024-08-02 06:08] LABS: CALCIUM 8.4 mg/dL (8.5-10.1); CARBON DIOXIDE,CO2 23.6 mmol/L (21.0-32.0); EST CRCL DRUG DOSING (CG) 72.76 mL/min; POTASSIUM,K 3.2 mmol/L (3.5-5.1)
[2024-08-02 06:29] LABS: BASOPHILS ABSOLUTE MAN 0.04 K/uL (0.00-0.20); BASOPHILS PERCENT MAN 1 % (0-1); EOSINOPHILS ABSOLUTE MAN 0.19 K/uL (0.00-0.45); EOSINOPHILS PERCENT MAN 5 % (0-6); LYMPHOCYTES ABSOLUTE MAN 0.77 K/uL (1.00-4.80); LYMPHOCYTES PERCENT MAN 20 % (24-44); MONOCYTES ABSOLUTE MAN 0.58 K/uL (0.00-0.80); MONOCYTES PERCENT MAN 15 % (0-8); SEG NEUTROPHILS ABSOLUTE MAN 2.28 K/uL (1.80-7.70); SEG NEUTROPHILS PERCENT MAN 59 % (41-71)
[2024-08-02] MEDS: Potassium Chloride 20 MEQ Tab.ER PO ONE (08:17)
[2024-08-02] MEDS: Ondansetron 4 MG Tab.DIS PO PRN (08:54)
[2024-08-03 05:54] LABS: BASOPHILS ABSOLUTE AUTO 0.06 K/uL (0.00-0.20); BASOPHILS PERCENT AUTO 1.8 % (0.0-1.0); EOSINOPHILS ABSOLUTE AUTO 0.22 K/uL (0.00-0.45); EOSINOPHILS PERCENT AUTO 6.6 % (0.0-6.0); HEMATOCRIT 33.4 % (42.0-52.0); HEMOGLOBIN 10.5 g/dL (14.0-18.0); IMMATURE GRAN ABSOLUTE AUTO 0.05 K/uL (0.00-0.05); IMMATURE GRAN PERCENT AUTO 1.5 % (0.0-0.4); LYMPHOCYTES ABSOLUTE AUTO 0.73 K/uL (1.00-4.80); LYMPHOCYTES PERCENT AUTO 21.9 % (24.0-44.0); MEAN CORPUSCULAR HGB CONC 31.4 g/dL (32.0-36.0); MEAN CORPUSCULAR VOLUME 101.8 fL (83.0-99.0); MEAN PLATELET VOLUME 10.1 fL (9.4-12.4); MONOCYTES ABSOLUTE AUTO 0.63 K/uL (0.00-0.80); MONOCYTES PERCENT AUTO 18.9 % (0.0-8.0); NEUTROPHILS ABSOLUTE AUTO 1.65 K/uL (1.80-7.70); NEUTROPHILS PERCENT AUTO 49.3 % (41.0-71.0); PLATELET COUNT,PLT 213 K/uL (150-400); RED BLOOD CELL COUNT 3.28 M/uL (4.52-5.90); WHITE BLOOD CELL COUNT,WBC 3.34 K/uL (3.9-11.3)
[2024-08-03 06:29] LABS: CALCIUM 8.9 mg/dL (8.5-10.1); CARBON DIOXIDE,CO2 23.2 mmol/L (21.0-32.0); CREATININE 1.1 mg/dL (0.8-1.3); EST CRCL DRUG DOSING (CG) 66.15 mL/min; MAGNESIUM 1.9 mg/dL (1.8-2.4); POTASSIUM,K 3.6 mmol/L (3.5-5.1)
[2024-08-05 10:28] VITALS: BP 94/62; PULSE 97
== END 2024-08-05 11:05 | DRG 884 ==
LOC: MW.ED 14:46 → MW.MS 18:09
PROVIDERS: ADMIT Family Medicine; ATTEND Family Medicine
DX: F03.B11 Unspecified dementia, moderate, with agitation (principal); J18.9 Pneumonia, unspecified organism; C78.00 Secondary malignant neoplasm of unspecified lung; I10 Essential (primary) hypertension; J98.11 Atelectasis; Z88.5 Allergy status to narcotic agent; F05 Delirium due to known physiological condition; Z75.8 Other problems related to medical facilities and other health care; G93.49 Other encephalopathy; F03.B4 Unspecified dementia, moderate, with anxiety; F03.B3 Unspecified dementia, moderate, with mood disturbance; F03.B2 Unspecified dementia, moderate, with psychotic disturbance; K21.9 Gastro-esophageal reflux disease without esophagitis; I25.10 Atherosclerotic heart disease of native coronary artery without angina pectoris; H91.90 Unspecified hearing loss, unspecified ear; E78.00 Pure hypercholesterolemia, unspecified; I11.9 Hypertensive heart disease without heart failure; G47.30 Sleep apnea, unspecified; K44.9 Diaphragmatic hernia without obstruction or gangrene; M19.90 Unspecified osteoarthritis, unspecified site; E87.6 Hypokalemia; E66.9 Obesity, unspecified; Z96.659 Presence of unspecified artificial knee joint; M10.9 Gout, unspecified; D69.6 Thrombocytopenia, unspecified; R26.2 Difficulty in walking, not elsewhere classified; E83.42 Hypomagnesemia; G93.89 Other specified disorders of brain; K59.00 Constipation, unspecified; T45.1X5A Adverse effect of antineoplastic and immunosuppressive drugs, initial encounter; Z68.30 Body mass index [BMI] 30.0-30.9, adult; Z86.711 Personal history of pulmonary embolism; Z79.01 Long term (current) use of anticoagulants; Z88.8 Allergy status to other drugs, medicaments and biological substances; Z98.49 Cataract extraction status, unspecified eye; Z91.81 History of falling; Z98.890 Other specified postprocedural states; Z86.718 Personal history of other venous thrombosis and embolism; Z86.73 Personal history of transient ischemic attack (TIA), and cerebral infarction without residual deficits; Z79.899 Other long term (current) drug therapy; Z85.118 Personal history of other malignant neoplasm of bronchus and lung; Z95.5 Presence of coronary angioplasty implant and graft
CPT/HCPCS: 36415; 70450; 71260; 74177; 80053; 80307; 81003; 83690; 83735; 85025; 85610; 85730; 96374; 99285; J2060; Q9967; 71045; 71045-26; 80048; 82140; 82607; 83605; 84100; 84439; 84443; 84484; 86140; 87428-QW; 93005; 97110-GP; 97162-GP; 99222; 99231; 99232; 99238; A9270-GY; J0456; J0696; J1630; J1650; J2470; J2543; J3475; J3480; J3490; J7050